=== PATIENT | male | born 1955 | race Caucasian/White ===

== ENCOUNTER 2018-01-11 02:58 | Inpatient (IN) | payer MEDICARE, OTHER ==
[~2018-01-11] VITALS: Ht 185.4 cm; Wt 164.5 kg
[2018-01-11] VITALS (8 sets, daily range): BP systolic 131–183; BP diastolic 76–116; PULSE 108–124; RESP 16–20; TEMP 97.9–99.3; O2SAT 92–95
[2018-01-11] MEDS ORDERED: SODIUM CHLOR 0.9% 1000 ML INJ 1,000 ML IV SCH (03:05)
[2018-01-11] MEDS ORDERED: ATROPINE/SCOPOLAM/HYOSCYAM/PB ELIXIR 10 ML CUP PO ONE (03:15)
[2018-01-11] MEDS ORDERED: ALUMINUM/MAGNESIUM/SIMETH 30 ML CUP PO ONE (03:15)
[2018-01-11] MEDS ORDERED: SODIUM CHLORIDE 0.9% FLUSH 10 ML FLUSH IV FLUSH PRN (03:15)
[2018-01-11] MEDS ORDERED: MORPHINE SULFATE 4 MG/ML INJ IV PUSH ONE (03:15)
[2018-01-11] MEDS ORDERED: FAMOTIDINE 20 MG/2 ML VIAL IV PUSH ONE (03:15)
--- NOTE | 2018-01-11 03:15 | PD ---
HPI Chief Complaint: Chest Pain Time Seen by Provider: 03:04 Travel History International Travel<30 days: No Contact w/Intl Traveler<30days: No Traveled to known affect area: No History of Present Illness HPI 62-year-old male complains of epigastric abdominal pain, nausea vomiting. Patient states the symptoms started about 6 hours prior to arrival. Patient states that the pain is aching pain started around the epigastric area with radiation to the left chest area. Patient states that he has shortness of breath, diaphoresis, nausea vomiting with the pain. Patient denies any fever chills cough and congestion. Patient has a history of GERD. EMS was called. Patient was given Zofran 4 mg IV, 2 nitroglycerin sublingually prior to arrival. Patient states that the pain persist despite the medication. Patient was also given aspirin 325 mg p.o. Patient denies any history of CAD. Patient denies any history of hypertension. Patient states he has history of diabetes and COPD. Patient denies any history of hyperlipidemia. Patient is non- smoker. Patient denies family history of heart disease. On a scale from 1-10 the pain is an 8. PFSH Social History Tobacco Use: No Allergies-Medications (Allergen,Severity, Reaction): Coded Allergies: No Known Allergies (Verified Allergy, Unknown, 01/11/18) Reported Meds & Prescriptions Reported Meds & Active Scripts Active Reported Daliresp (Roflumilast) 500 Mcg Tab 500 Mcg PO DAILY Omeprazole 20 Mg Tab 20 Mg PO DAILY Furosemide 20 Mg Tab 20 Mg PO DAILY Citalopram (Citalopram Hydrobromide) 40 Mg Tab 40 Mg PO DAILY Glucophage (Metformin HCl) 500 Mg Tab 500 Mg PO DAILY With a meal D3 Super Strength (Cholecalciferol) 2,000 Unit Cap 2,000 Units PO DAILY Divalproex DR (Divalproex Sodium) 500 Mg Tabdr 500 Mg PO BID B12 (Cyanocobalamin) 1,000 Mcg Tab 1 Tab PO DAILY Review of Systems General / Constitutional: No: Fever Eyes: No: Visual changes HENT: No: Headaches Cardiovascular: Positive: Chest Pain or Discomfort Respiratory: No: Shortness of Breath Gastrointestinal: Positive: Nausea, Vomiting, Abdominal Pain Genitourinary: No: Dysuria Musculoskeletal: No: Pain Skin: No Rash Neurologic: No: Weakness Psychiatric: No: Depression Endocrine: No: Polydipsia Hematologic/Lymphatic: No: Easy Bruising Physical Exam Narrative GENERAL: Well-nourished, well-developed patient. SKIN: Focused skin assessment warm/dry. HEAD: Normocephalic. EYES: No scleral icterus. No injection or drainage. NECK: Supple, trachea midline. No JVD or lymphadenopathy. CARDIOVASCULAR: Regular rate and rhythm without murmurs, gallops, or rubs. RESPIRATORY: Breath sounds equal bilaterally. No accessory muscle use. GASTROINTESTINAL: Abdomen soft, nondistended. Patient has moderate tenderness in palpation epigastric area and mild tenderness on palpation right upper quadrant of the abdomen. No rebound tenderness. No mass. MUSCULOSKELETAL: No cyanosis, or edema. BACK: Nontender without obvious deformity. No CVA tenderness. Neurologic exam normal. Data Data Last Documented VS Vital Signs Date Time Temp Pulse Resp B/P (MAP) Pulse Ox O2 Delivery O2 Flow Rate FiO2 01/11/18 05:36 18 94 Nasal Cannula 2.00 01/11/18 05:35 108 01/11/18 03:06 98.4 Orders Orders Complete Blood Count With Diff (01/11/18 03:05) Comprehensive Metabolic Panel (01/11/18 03:05) Lipase (01/11/18 03:05) Prothrombin Time / Inr (Pt) (01/11/18 03:05) Act Partial Throm Time (Ptt) (01/11/18 03:05) Urinalysis - C+S If Indicated (01/11/18 03:05) Ct Abd/Pel W Iv Contrast(Rout) (01/11/18 03:05) Iv Access Insert/Monitor (01/11/18 03:05) Ecg Monitoring (01/11/18 03:05) Oximetry (01/11/18 03:05) Morphine Inj (Morphine Inj) (01/11/18 03:15) Sodium Chlor 0.9% 1000 Ml Inj (Ns 1000 M (01/11/18 03:05) Sodium Chloride 0.9% Flush (Ns Flush) (01/11/18 03:15) Electrocardiogram (01/11/18 03:05) Famotidine Inj (Pepcid Inj) (01/11/18 03:15) Al-Mag Hy-Si 40-40-4 Mg/Ml Liq (Mag-Al P (01/11/18 03:15) Aamsw-Jcznsj-Iqzlsh-Pb Liq ( Liq (01/11/18 03:15) Creatine Kinase (Cpk) (01/11/18 03:00) Troponin I (01/11/18 03:00) Hydromorphone Pf Inj (Dilaudid Pf Inj) (01/11/18 04:15) Hydromorphone Pf Inj (Dilaudid Pf Inj) (01/11/18 04:15) Iohexol 350 Inj (Omnipaque 350 Inj) (01/11/18 04:47) Metoclopramide Inj (Reglan Inj) (01/11/18 05:30) Diphenhydramine Inj (Benadryl Inj) (01/11/18 05:30) Admit Order (Ed Use Only) (01/11/18 06:01) Labs Laboratory Tests Test 01/11/18 03:00 White Blood Count 20.0 TH/MM3 Red Blood Count 5.95 MIL/MM3 Hemoglobin 17.0 GM/DL Hematocrit 49.4 % Mean Corpuscular Volume 83.0 FL Mean Corpuscular Hemoglobin 28.6 PG Mean Corpuscular Hemoglobin Concent 34.4 % Red Cell Distribution Width 16.7 % Platelet Count 253 TH/MM3 Mean Platelet Volume 8.7 FL Neutrophils (%) (Auto) 92.5 % Lymphocytes (%) (Auto) 2.7 % Monocytes (%) (Auto) 4.6 % Eosinophils (%) (Auto) 0.0 % Basophils (%) (Auto) 0.2 % Neutrophils # (Auto) 18.5 TH/MM3 Lymphocytes # (Auto) 0.5 TH/MM3 Monocytes # (Auto) 0.9 TH/MM3 Eosinophils # (Auto) 0.0 TH/MM3 Basophils # (Auto) 0.0 TH/MM3 CBC Comment AUTO DIFF Differential Total Cells Counted 100 Neutrophils % (Manual) 77 % Band Neutrophils % 17 % Lymphocytes % 1 % Monocytes % 3 % Neutrophils # (Manual) 19.2 TH/MM3 Metamyelocytes 2 % Differential Comment FINAL DIFF MANUAL Toxic Vacuolation PRESENT Platelet Estimate NORMAL Platelet Morphology Comment NORMAL Red Cell Morphology Comment NORMAL Prothrombin Time 10.5 SEC Prothromb Time International Ratio 1.0 RATIO Activated Partial Thromboplast Time 22.5 SEC Blood Urea Nitrogen 15 MG/DL Creatinine 1.40 MG/DL Random Glucose 170 MG/DL Total Protein 7.8 GM/DL Albumin 3.9 GM/DL Calcium Level 9.2 MG/DL Alkaline Phosphatase 119 U/L Aspartate Amino Transf (AST/SGOT) 331 U/L Alanine Aminotransferase (ALT/SGPT) 238 U/L Total Bilirubin 3.5 MG/DL Sodium Level 141 MEQ/L Potassium Level 3.5 MEQ/L Chloride Level 104 MEQ/L Carbon Dioxide Level 29.6 MEQ/L Anion Gap 7 MEQ/L Total Creatine Kinase 167 U/L Troponin I LESS THAN 0.02 NG/ML Lipase 42485 U/L [facility] Medical Decision Making Medical Screen Exam Complete: Yes Emergency Medical Condition: Yes Interpretation(s) 4:49 AM. CBC WBC 20.0. 77 neutrophil. 17 bands. Creatinine 1.40. Glucose 170. Total bili 3.5. AST 331. ALT 238. Alkaline phosphatase 119. Cardiac enzymes are normal. Lipase [address]373. 5:[address] scan abdomen pelvis shows pancreatitis. Gallbladder stone. No biliary duct dilatation. Differential Diagnosis Differential diagnosis including gastritis, PUD, pancreatitis, cholecystitis, colitis, angina, [place], PE, pneumothorax. Narrative Course 62-year-old male with epigastric abdominal pain with pain radiation the left chest. Patient has diaphoresis, nausea vomiting with the pain. Normal saline solution 1 25 cc an hour. Pepcid 20 mg IV. Maalox 30 cc p.o. 10 cc p.o. given. Diagnosis Primary Impression: Acute pancreatitis Qualified Codes: K85.90 - Acute pancreatitis without necrosis or infection, unspecified Additional Impression: Cholelithiasis Qualified Codes: K80.20 - Calculus of gallbladder without cholecystitis without obstruction Aureliano Monahan MD Jan 11, 2018 03:15
[2018-01-11] MEDS ORDERED: METF500 PO (03:19)
[2018-01-11] MEDS ORDERED: CYAN1TAB24 PO (03:19)
[2018-01-11] MEDS ORDERED: DIVA500T PO (03:19)
[2018-01-11] MEDS ORDERED: ROFL1TAB2 PO (03:19)
[2018-01-11] MEDS ORDERED: D200CAP PO (03:19)
[2018-01-11] MEDS ORDERED: FURO20TA PO (03:19)
[2018-01-11] MEDS ORDERED: OMEP20TA93 PO (03:19)
[2018-01-11] MEDS ORDERED: CITA40TA4 PO (03:19)
[2018-01-11 03:28] LABS: AUTOMATED NEUTROPHIL # 18.5 TH/MM3 (1.8-7.7); BASOPHIL % 0.2 % (0.0-2.0); HEMATOCRIT 49.4 % (39.0-51.0); LYMPH % 2.7 % (9.0-44.0); LYMPHOCYTE # 0.5 TH/MM3 (1.0-4.8); MEAN CORPUSCULAR HEMOGLOBIN 28.6 PG (27.0-34.0); MEAN CORPUSCULAR HGB CONC 34.4 % (32.0-36.0); MEAN PLATELET VOLUME 8.7 FL (7.0-11.0); MONO % 4.6 % (0.0-8.0); MONOCYTE # 0.9 TH/MM3 (0-0.9); NEUT % 92.5 % (16.0-70.0); PLATELET COUNT 253 TH/MM3 (150-450); RED BLOOD COUNT 5.95 MIL/MM3 (4.50-5.90); RED CELL DISTRIBUTION WIDTH 16.7 % (11.6-17.2)
[2018-01-11 03:38] LABS: PROTHROMBIN TIME - PATIENT 10.5 SEC (9.8-11.6)
[2018-01-11 03:41] LABS: ALBUMIN 3.9 GM/DL (3.4-5.0); ALT (GPT) 238 U/L (12-78); AST (GOT) 331 U/L (15-37); BICARBONATE 29.6 MEQ/L (21.0-32.0); BLOOD UREA NITROGEN 15 MG/DL (7-18); CALCIUM 9.2 MG/DL (8.5-10.1); CHLORIDE 104 MEQ/L (98-107); GLUCOSE,RANDOM 170 MG/DL (74-106); SODIUM (NA) 141 MEQ/L (136-145)
[2018-01-11 03:45] LABS: ALKALINE PHOSPHATASE 119 U/L (45-117); TOTAL BILIRUBIN ADULT 3.5 MG/DL (0.2-1.0); TOTAL PROTEIN 7.8 GM/DL (6.4-8.2); TROPONIN I LESS THAN 0.02 NG/ML (0.02-0.05)
[2018-01-11 03:59] LABS: BANDS 17 % (0-6); LYMPHOCYTES 1 % (9-44); METAMYELOCYTES 2 % (0-1); MONOCYTES 3 % (0-8); NEUTROPHIL # MANUAL DIFF 19.2 TH/MM3 (1.8-7.7); POLYS (SEG NEUTROPHILS) 77 % (16-70); TOXIC VACUOLATION PRESENT (NONE SEEN)
[2018-01-11] MEDS ORDERED: HYDROmorphone HCL PF 2 MG/ML VIAL IV PUSH ONE (04:15)
[2018-01-11] MEDS ORDERED: HYDROmorphone HCL PF 1 MG/ML VIAL IV PUSH ONE (04:15)
[2018-01-11] MEDS ORDERED: IOHEXOL 350 MG/ML 10 ML VIAL (for RAD DIAG) IVCONTRAST ONE (04:47)
[2018-01-11] MEDS ORDERED: METOCLOPRAMIDE HCL 10 MG/2 ML VIAL IV PUSH ONE (05:30)
[2018-01-11] MEDS ORDERED: diphenhydrAMINE HCL 50 MG/ML VIAL IV PUSH ONE (05:30)
--- NOTE | 2018-01-11 05:35 | RADRPT ---
EXAM DATE/TIME: 01/11/2018 04:57 [facility] COMPARISON: No previous studies available for comparison. INDICATIONS : Epigastric pain. IV CONTRAST: 96 cc Omnipaque 350 (iohexol) IV ORAL CONTRAST: No oral contrast ingested. RADIATION DOSE: 30.34 CTDIvol (mGy) ; Patient body habitus MEDICAL HISTORY : Chronic obstructive pulmonary disease. Gastroesophageal reflux disease. Diabetes mellitus type 2. SURGICAL HISTORY : None. ENCOUNTER: Initial ACUITY: 1 day PAIN SCALE: 6/10 LOCATION: abdomen TECHNIQUE: Volumetric scanning of the abdomen and pelvis was performed. Using automated exposure control and ad justment of the mA and/or kV according to patient size, radiation dose was kept as low as reasonably achievable to obtain optimal diagnostic quality images. DICOM format image data is available electro nically for review and comparison. FINDINGS: LOWER LUNGS: The visualized lower lungs are clear. LIVER: There is a 2 cm cyst in the right liver. No concerning liver lesion is identified. There is no dilat ion of the biliary tree. There are small stones in the gallbladder. No gallbladder wall thickening is present. No calcified stones are seen within the common bile duct. SPLEEN: Normal size without lesion. PANCREAS: The pancreas is enlarged and demonstrates peripancreatic inflammation. There is no pancreatic necrosi s or pseudocyst formation. Main pancreatic duct is normal in size. KIDNEYS: There are bilateral renal lesions which are hyperdense and could represent complex cysts or solid les ions. These include a 2.2 cm lesion at the right upper pole, a 1.7 cm lesion at the left upper pole, a 2.5 cm lesion exophytically arising from the lower pole, and another 1.8 cm low-density lesion at t he lower pole of the left kidney. There is no hydronephrosis. 2 nonobstructing stones are present in the right lower pole renal collecting system measuring 2 mm and 3 mm. A 2 mm nonobstructing stone is present in the left lower pole collecting system. ADRENAL GLANDS: Within normal limits. VASCULAR: There is no aortic aneurysm. There is moderate atherosclerotic disease. BOWEL/MESENTERY: Stomach and small bowel demonstrate no acute finding. There is sigmoid diverticulosis. There is a sma ll volume of free fluid in the abdomen and pelvis. No free air is present. ABDOMINAL WALL: Within normal limits. RETROPERITONEUM: There is no lymphadenopathy. BLADDER: No wall thickening or mass. REPRODUCTIVE: Within normal limits. INGUINAL: There is no lymphadenopathy or hernia. 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 There are degenerative changes of the lumbar spine. CONCLUSION: 1. Abnormal pancreas diagnostic of acute pancreatitis. There is peripancreatic inflammation and a sma ll volume of free fluid in the abdomen and pelvis. No pancreatic necrosis or pancreatitis associated complications are currently present. 2. Small stones are present within the gallbladder. There is no bile duct dilatation. 3. There are multiple bilateral renal lesions which are incompletely characterized on this study and could represent solid renal lesions or complex cysts. These should be further evaluation once the pat ient's condition permits. These ideally should be further evaluated with renal protocol MRI with and without intravenous contrast. 4. Nonacute findings include nonobstructing bilateral renal stones and moderate atherosclerotic disea se. Mono Wesley MD on January 11, 2018 at 5:25 Board Certified Radiologist. This report was verified electronically.
[2018-01-11] MEDS ORDERED: SENNOSIDES 8.6 MG TAB PO PRN (06:00)
[2018-01-11] MEDS ORDERED: HYDROmorphone HCL PF 1 MG/ML VIAL IV PUSH PRN (06:00)
[2018-01-11] MEDS ORDERED: BISACODYL 10 MG SUPP RECTAL PRN (06:00)
[2018-01-11] MEDS ORDERED: LACTULOSE SYRUP 20 GM/30 ML CUP PO PRN (06:00)
[2018-01-11] MEDS ORDERED: MAGNESIUM HYDROXIDE SUSP 30 ML CUP PO PRN (06:00)
[2018-01-11] MEDS: PIPERACIL-TAZO 4.5 GM PREMIX 100 ML IV SCH ×3 (06:42→21:55)
[2018-01-11] MEDS: SODIUM CHLOR 0.9% 1000 ML INJ 1,000 ML IV SCH ×2 (06:42→21:18)
--- NOTE | 2018-01-11 08:59 | PD.CONS ---
HPI History of Present Illness This is a 62 year old This is a 62 y o male with hx DM and COPD who presented to ER with epigastric pain, n/v that started last night. The pain is constant. No blood in emesis. Has noticed mildly looser stools. Never had this kind of pain before. Denies prior episode pancreatitis, problems with gallbladder. he tells me he has a spot on his liver and "nobody knows what it is" but otherwise no problems with liver. occasional ETOh consumption; denies heavy ETOH. Admits acid reflux. his last colonoscopy was 4 y ago in [place], no abnormal findings. Never had EGD. (Adriane Bernabe) PFSH Past Medical History neuropathy COPD DM Past Surgical History left ankle surgery (Adriane Bernabe) Coded Allergies: No Known Allergies (Verified Allergy, Unknown, 01/11/18) Family History heart problems - father Social History occasional ETOH quit smoking 8 y ago no illicit drugs (Adriane Bernabe) Review of Systems Constitutional: COMPLAINS OF: Fever, Night Sweats Endocrine: DENIES: Polydipsia Eyes: DENIES: Blurred vision Ears, nose, mouth, throat: DENIES: Hearing loss Respiratory: DENIES: Cough Cardiovascular: DENIES: Chest pain Gastrointestinal: COMPLAINS OF: Abdominal pain, Nausea, Vomiting, DENIES: Black stools, Bloody stools, Hematemesis Genitourinary: DENIES: Hematuria Musculoskeletal: DENIES: Joint Swelling Integumentary: DENIES: Abnormal pigmentation Hematologic/lymphatic: DENIES: Bruising Immunologic/allergic: DENIES: Eczema Neurologic: DENIES: Headache Psychiatric: DENIES: Confusion (Adriane Bernabe) GI Exam Vitals I&O Vital Signs Date Time Temp Pulse Resp B/P (MAP) Pulse Ox O2 Delivery O2 Flow Rate FiO2 01/11/18 05:36 18 94 Nasal Cannula 2.00 01/11/18 05:35 108 18 137/84 (101) 94 Nasal Cannula 2.00 01/11/18 05:00 17 01/11/18 04:00 18 01/11/18 03:14 110 18 95 Nasal Cannula 4.00 01/11/18 03:06 98.4 114 18 133/76 (95) 95 Imaging Last Impressions Abdomen/Pelvis CT 01/11/18 0305 Signed Impressions: Service Date/Time: Thursday, January 11, 2018 04:57 - CONCLUSION: 1. Abnormal pancreas diagnostic of acute pancreatitis. There is peripancreatic inflammation and a small volume of free fluid in the abdomen and pelvis. No pancreatic necrosis or pancreatitis associated complications are currently present. 2. Small stones are present within the gallbladder. There is no bile duct dilatation. 3. There are multiple bilateral renal lesions which are incompletely characterized on this study and could represent solid renal lesions or complex cysts. These should be further evaluation once the patient's condition permits. These ideally should be further evaluated with renal protocol MRI with and without intravenous contrast. 4. Nonacute findings include nonobstructing bilateral renal stones and moderate atherosclerotic disease. Mono Wesley MD Laboratory Test 01/11/18 03:00 White Blood Count 20.0 TH/MM3 Red Blood Count 5.95 MIL/MM3 Hemoglobin 17.0 GM/DL Hematocrit 49.4 % Mean Corpuscular Volume 83.0 FL Mean Corpuscular Hemoglobin 28.6 PG Mean Corpuscular Hemoglobin Concent 34.4 % Red Cell Distribution Width 16.7 % Platelet Count 253 TH/MM3 Mean Platelet Volume 8.7 FL Neutrophils (%) (Auto) 92.5 % Lymphocytes (%) (Auto) 2.7 % Monocytes (%) (Auto) 4.6 % Eosinophils (%) (Auto) 0.0 % Basophils (%) (Auto) 0.2 % Neutrophils # (Auto) 18.5 TH/MM3 Lymphocytes # (Auto) 0.5 TH/MM3 Monocytes # (Auto) 0.9 TH/MM3 Eosinophils # (Auto) 0.0 TH/MM3 Basophils # (Auto) 0.0 TH/MM3 CBC Comment AUTO DIFF Differential Total Cells Counted 100 Neutrophils % (Manual) 77 % Band Neutrophils % 17 % Lymphocytes % 1 % Monocytes % 3 % Neutrophils # (Manual) 19.2 TH/MM3 Metamyelocytes 2 % Differential Comment FINAL DIFF MANUAL Toxic Vacuolation PRESENT Platelet Estimate NORMAL Platelet Morphology Comment NORMAL Red Cell Morphology Comment NORMAL Prothrombin Time 10.5 SEC Prothromb Time International Ratio 1.0 RATIO Activated Partial Thromboplast Time 22.5 SEC Blood Urea Nitrogen 15 MG/DL Creatinine 1.40 MG/DL Random Glucose 170 MG/DL Total Protein 7.8 GM/DL Albumin 3.9 GM/DL Calcium Level 9.2 MG/DL Alkaline Phosphatase 119 U/L Aspartate Amino Transf (AST/SGOT) 331 U/L Alanine Aminotransferase (ALT/SGPT) 238 U/L Total Bilirubin 3.5 MG/DL Sodium Level 141 MEQ/L Potassium Level 3.5 MEQ/L Chloride Level 104 MEQ/L Carbon Dioxide Level 29.6 MEQ/L Anion Gap 7 MEQ/L Total Creatine Kinase 167 U/L Troponin I LESS THAN 0.02 NG/ML Lipase 35670 U/L Physical Examination HEENT: PERRL; normocephalic; atraumatic; no jaundice. CHEST: diminished, shallow CARDIAC: tachy ABDOMEN: Soft, obese, epigastric TTP; bowel sounds are present in all four quadrants. EXTREMITIES: No clubbing, cyanosis, or edema.BLE cool to touch SKIN: red scaly lesion sternum; red macular lesions abdomen; no jaundice. CLINICAL EVALUATOR: No focal deficits; alert and oriented times three. (Adriane Bernabe) Assessment and Plan Plan ASSESSMENT - epigastric pain, n/v, elevated LFTs- pancreatitis, could have had gallstone that passed. lipase > 20,000. LFTs are elevated in obstructive pattern but CT showed no ductal dilatation. - leukocytosis - WBC 20k 2/2 above PLAN - continue zosyn - hepatitis panel - npo except ice chips - monitor LFTs - if LFTs do not trend down will get MRCP - pain mgmt - IVF - supportive care pt see by myself and Dr Mc and this note is written on his behalf (Adriane Bernabe) Physician Comments Agree with above assessment and plan, will plan for MRCP in am and if positive to proceed with ERC. Will follow up with you. Thank you for the consult. (Ja Mc MD) Adriane Bernabe Jan 11, 2018 08:59 Ja Mc MD Jan 11, 2018 15:13
--- NOTE | 2018-01-11 09:10 | HHI.HP ---
HPI Service [facility] Hospitalists Primary Care Physician Non-Staff Admission Diagnosis Acute pancreatitis. Cholelithiasis. Diagnoses: Chief Complaint: Epigastric pain Travel History International Travel<30 Days: No Contact w/Intl Traveler <30 Da: No Traveled to Known Affected Are: No History of Present Illness This is a 62-year-old male with past medical history of type 2 diabetes, history of kidney stones, COPD who presents to [facility] complaining of sudden onset of epigastric pain was started this morning at 6 AM. The patient states that pain is epigastric was 89/10 in intensity associated with nausea and multiple episodes of vomiting. The patient states he had chills and fevers. Pain is nonradiating. Patient denies any aggravating factors, states that pain is only relieved with pain medications that were given here in the emergency department. The patient had been seen in the emergency department and evaluated. As part of evaluation CT abdomen and pelvis was obtained and showed signs consistent with acute pancreatitis. There is no pancreatic necrosis or bile duct dilatation. The patient currently complains of epigastric pain which is nonradiating 6/10 intensity associated with nausea. Otherwise the patient states has minimal cough, denies dysuria, diarrhea, denies shortness of breath or chest pain. Review of Systems As per HPI, other systems reviewed by me and negative. Past Family Social History Past Medical History neuropathy COPD DM Past Surgical History left ankle surgery Reported Medications Reported Meds & Active Scripts Active Reported Daliresp (Roflumilast) 500 Mcg Tab 500 Mcg PO DAILY Omeprazole 20 Mg Tab 20 Mg PO DAILY Furosemide 20 Mg Tab 20 Mg PO DAILY Citalopram (Citalopram Hydrobromide) 40 Mg Tab 40 Mg PO DAILY Glucophage (Metformin HCl) 500 Mg Tab 500 Mg PO DAILY With a meal D3 Super Strength (Cholecalciferol) 2,000 Unit Cap 2,000 Units PO DAILY Divalproex DR (Divalproex Sodium) 500 Mg Tabdr 500 Mg PO BID B12 (Cyanocobalamin) 1,000 Mcg Tab 1 Tab PO DAILY Allergies: Coded Allergies: No Known Allergies (Verified Allergy, Unknown, 01/11/18) Active Ordered Medications Current Medications Medications (Trade) Dose Ordered Sig/Kumar Route Start Time Stop Time Status Last Admin Piperacillin Sod/ Tazobactam Sod 100 ml @ 200 mls/hr Q6H IV 01/11/18 06:00 01/11/18 06:42 Sodium Chloride 1,000 ml @ 100 mls/hr Q10H IV 01/11/18 05:48 01/11/18 06:42 (NS Flush) 2 ml UNSCH PRN IV FLUSH 01/11/18 06:00 (NS Flush) 2 ml BID IV FLUSH 01/11/18 09:00 (Zofran Inj) 4 mg Q6H PRN IVP 01/11/18 06:00 (Dilaudid Pf Inj) 1 mg Q3H PRN IV PUSH 01/11/18 06:00 (Roxicodone) 5 mg Q4H PRN PO 01/11/18 06:00 (Sondra-Colace) 1 tab BID PO 01/11/18 09:00 (Milk Of Magnesia Liq) 30 ml Q12H PRN PO 01/11/18 06:00 (Senokot) 17.2 mg Q12H PRN PO 01/11/18 06:00 (Dulcolax Supp) 10 mg DAILY PRN RECTAL 01/11/18 06:00 (Lactulose Liq) 30 ml DAILY PRN PO 01/11/18 06:00 (Pepcid Inj) 20 mg Q12H IV PUSH 01/11/18 09:00 Family History heart problems - father Social History occasional ETOH quit smoking 8 y ago no illicit drugs Physical Exam Vital Signs Vital Signs Date Time Temp Pulse Resp B/P (MAP) Pulse Ox O2 Delivery O2 Flow Rate FiO2 01/11/18 05:36 18 94 Nasal Cannula 2.00 01/11/18 05:35 108 18 137/84 (101) 94 Nasal Cannula 2.00 01/11/18 05:00 17 01/11/18 04:00 18 01/11/18 03:14 110 18 95 Nasal Cannula 4.00 01/11/18 03:06 98.4 114 18 133/76 (95) 95 Physical Exam GENERAL: This is a well-nourished, well-developed patient, moderate distress due to pain. Nose respiratory distress observed. SKIN: No rashes, ecchymoses or lesions. Cool and dry. HEAD: Atraumatic. Normocephalic. No temporal or scalp tenderness. EYES: Pupils equal round and reactive. Extraocular motions intact. No scleral icterus. No injection or drainage. ENT: Nose without bleeding, purulent drainage or septal hematoma. Throat without erythema, tonsillar hypertrophy or exudate. Uvula midline. Airway patent. NECK: Trachea midline. No JVD or lymphadenopathy. Supple, nontender, no meningeal signs. CARDIOVASCULAR: Regular rate and rhythm without murmurs, gallops, or rubs. RESPIRATORY: Decreased breath sounds bilaterally however clear to auscultation. Breath sounds equal bilaterally. No wheezes, rales, or rhonchi. GASTROINTESTINAL: Abdomen soft, non-tender, nondistended. No hepato-splenomegaly , or palpable masses. No guarding. Obese MUSCULOSKELETAL: Extremities without clubbing, cyanosis, or edema. No joint tenderness, effusion, or edema noted. No calf tenderness. Negative Homans sign bilaterally. NEUROLOGICAL: Awake and alert. Cranial nerves II through XII intact. Motor and sensory grossly within normal limits. Five out of 5 muscle strength in all muscle groups. Normal speech. Laboratory Laboratory Tests Test 01/11/18 03:00 White Blood Count 20.0 Red Blood Count 5.95 Hemoglobin 17.0 Hematocrit 49.4 Mean Corpuscular Volume 83.0 Mean Corpuscular Hemoglobin 28.6 Mean Corpuscular Hemoglobin Concent 34.4 Red Cell Distribution Width 16.7 Platelet Count 253 Mean Platelet Volume 8.7 Neutrophils (%) (Auto) 92.5 Lymphocytes (%) (Auto) 2.7 Monocytes (%) (Auto) 4.6 Eosinophils (%) (Auto) 0.0 Basophils (%) (Auto) 0.2 Neutrophils # (Auto) 18.5 Lymphocytes # (Auto) 0.5 Monocytes # (Auto) 0.9 Eosinophils # (Auto) 0.0 Basophils # (Auto) 0.0 CBC Comment AUTO DIFF Differential Total Cells Counted 100 Neutrophils % (Manual) 77 Band Neutrophils % 17 Lymphocytes % 1 Monocytes % 3 Neutrophils # (Manual) 19.2 Metamyelocytes 2 Differential Comment FINAL DIFF MANUAL Toxic Vacuolation PRESENT Platelet Estimate NORMAL Platelet Morphology Comment NORMAL Red Cell Morphology Comment NORMAL Prothrombin Time 10.5 Prothromb Time International Ratio 1.0 Activated Partial Thromboplast Time 22.5 Blood Urea Nitrogen 15 Creatinine 1.40 Random Glucose 170 Total Protein 7.8 Albumin 3.9 Calcium Level 9.2 Alkaline Phosphatase 119 Aspartate Amino Transf (AST/SGOT) 331 Alanine Aminotransferase (ALT/SGPT) 238 Total Bilirubin 3.5 Sodium Level 141 Potassium Level 3.5 Chloride Level 104 Carbon Dioxide Level 29.6 Anion Gap 7 Total Creatine Kinase 167 Troponin I LESS THAN 0.02 Lipase 16326 Result Diagram: 01/11/1829901/11/18299 Imaging Last Impressions Abdomen/Pelvis CT 01/11/18304 Signed Impressions: Service Date/Time: Thursday, January 11, 2018 04:57 - CONCLUSION: 1. Abnormal pancreas diagnostic of acute pancreatitis. There is peripancreatic inflammation and a small volume of free fluid in the abdomen and pelvis. No pancreatic necrosis or pancreatitis associated complications are currently present. 2. Small stones are present within the gallbladder. There is no bile duct dilatation. 3. There are multiple bilateral renal lesions which are incompletely characterized on this study and could represent solid renal lesions or complex cysts. These should be further evaluation once the patient's condition permits. These ideally should be further evaluated with renal protocol MRI with and without intravenous contrast. 4. Nonacute findings include nonobstructing bilateral renal stones and moderate atherosclerotic disease. Mono Wesley MD Reviewed by me. Caprini VTE Risk Assessment Caprini VTE Risk Assessment: Mod/High Risk (score >= 2) Caprini Risk Assessment Model Point Value = 1 Point Value = 2 Point Value = 3 Point Value = 5 Age 41-60 Minor surgery BMI > 25 kg/m2 Swollen legs Varicose veins or History of unexplained or recurrent spontaneous Oral contraceptives or hormone replacement Sepsis (< 1 month) Serious lung disease, including pneumonia (< 1 month) Abnormal pulmonary function Acute myocardial infarction Congestive heart failure (< 1 month) History of inflammatory bowel disease Medical patient at bed rest Age 61-74 Arthroscopic surgery Major open surgery (> 45 min) Laparoscopic surgery (> 45 min) Malignancy Confined to bed (> 72 hours) Immobilizing plaster cast Central venous access Age >= 75 History of VTE Family history of VTE Factor V Leiden Prothrombin [id number] Lupus anticoagulant Anticardiolipin antibodies Elevated serum homocysteine Heparin-induced thrombocytopenia Other congenital or acquired thrombophilia Stroke (< 1 month) Elective arthroplasty Hip, pelvis, or leg fracture Acute spinal cord injury (< 1 month) Prophylaxis Regimen Total Risk Factor Score Risk Level Prophylaxis Regimen 0-1 Low Early ambulation 2 Moderate Order ONE of the following: *Sequential Compression Device (SCD) *Heparin 5000 units SQ BID 3-4 Higher Order ONE of the following medications: *Heparin 5000 units SQ TID *Enoxaparin/Lovenox 40 mg SQ daily (WT < 150 kg, CrCl > 30 mL/min) *Enoxaparin/Lovenox 30 mg SQ daily (WT < 150 kg, CrCl > 10-29 mL/min) *Enoxaparin/Lovenox 30 mg SQ BID (WT < 150 kg, CrCl > 30 mL/min) AND/OR *Sequential Compression Device (SCD) 5 or more Highest Order ONE of the following medications: *Heparin 5000 units SQ TID (Preferred with Epidurals) *Enoxaparin/Lovenox 40 mg SQ daily (WT < 150 kg, CrCl > 30 mL/min) *Enoxaparin/Lovenox 30 mg SQ daily (WT < 150 kg, CrCl > 10-29 mL/min) *Enoxaparin/Lovenox 30 mg SQ BID (WT < 150 kg, CrCl > 30 mL/min) AND *Sequential Compression Device (SCD) Assessment and Plan Problem List: (1) Acute pancreatitis ICD Code: K85.90 - Acute pancreatitis without necrosis or infection, unspecified Status: Acute Plan: Despite gallstone pancreatitis since there is cholelithiasis, transaminitis and elevated alk phos. Likely a passed a stone. CT abdomen and pelvis reviewed by me showed changes consistent with acute pancreatitis with peripancreatic inflammation and small volume of free fluid in the abdomen and pelvis. There is no pancreatic necrosis of pancreatic associated complications currently present. Admit the patient to the medical floor Aggressive IV fluid resuscitation. Pain control with IV morphine and IV Dilaudid for breakthrough pain. GI consulted, appreciate recommendations. Consult general surgery as likely the gallbladder should be removed on this admission. (2) Cholelithiasis ICD Code: K80.20 - Calculus of gallbladder without cholecystitis without obstruction Status: Acute Plan: Small stones present within the gallbladder on CT abdomen and pelvis however there is no bile duct dilatation. I will order a liver ultrasound to better assess for bile duct dilatation. (3) SIRS (systemic inflammatory response syndrome) ICD Code: R65.10 - Systemic inflammatory response syndrome (SIRS) of non- infectious origin without acute organ dysfunction Plan: Present on admission. Patient is afebrile however tachycardic and with leukocytosis of 20 K with 70% bands We will order chest x-ray and UA to rule out infection. No signs of necrosis on CT abdomen and pelvis. IV fluids IV Zosyn Check lactic acid as per sepsis protocol (4) Leukocytosis ICD Code: D72.829 - Elevated white blood cell count, unspecified Plan: WBC 20 K with 17% bands. Monitor CBC with differential Likely leukocytosis secondary to acute pancreatitis. (5) HAMMAD (acute kidney injury) ICD Code: N17.9 - Acute kidney failure, unspecified Plan: Likely secondary to dehydration. CT abdomen and pelvis did not show any obstruction. Aggressive IV fluid resuscitation. Monitor BUN and creatinine, strict I's and O's, avoid nephrotoxins. (6) Transaminitis ICD Code: R74.0 - Nonspecific elevation of levels of transaminase and lactic acid dehydrogenase [LDH] Plan: Likely secondary to gallstone pancreatitis with passed stone. Monitor LFTs Check hepatitis profile. GI consulted. Follow-up recommendations.? MRCP (7) Kidney lesion, cachil dehe, bilateral ICD Code: N28.9 - Disorder of kidney and ureter, unspecified Plan: CT abdomen and pelvis shows multiple bilateral renal lesions versus complex cysts. An MRI with and without IV contrast should be obtained once the patient is more stable. (8) Nausea & vomiting ICD Code: R11.2 - Nausea with vomiting, unspecified Plan: Likely due to acute pancreatitis. We will place on IV Zofran. Assessment and Plan GI prophylaxis. PPI. DVT prophylaxis: We will place on Lovenox subcutaneously, SCDs. Code Status Full code. Discussed Condition With ED physician, patient. Physician Certification 2 Midnight Certification Type: Admission for Inpatient Services Order for Inpatient Services The services are ordered in accordance with Medicare regulations or non- Medicare payer requirements, as applicable. In the case of services not specified as inpatient-only, they are appropriately provided as inpatient services in accordance with the 2-midnight benchmark. Estimated LOS (days): 2 days is the estimated time the patient will need to remain in the hospital, assuming treatment plan goals are met and no additional complications. Post-Hospital Plan: Not yet determined Problem Qualifiers (1) Acute pancreatitis: Qualified Codes: K85.90 - Acute pancreatitis without necrosis or infection, unspecified (2) Cholelithiasis: Qualified Codes: K80.20 - Calculus of gallbladder without cholecystitis without obstruction (3) Leukocytosis: Qualified Codes: D72.825 - Bandemia (4) Nausea & vomiting: Melvin Mcneal MD Jan 11, 2018 09:10
[2018-01-11] MEDS: SODIUM CHLORIDE 0.9% FLUSH 10 ML FLUSH IV FLUSH SCH ×2 (09:28→20:39)
[2018-01-11] MEDS: FAMOTIDINE 20 MG/2 ML VIAL IV PUSH SCH ×2 (09:39→20:39)
[2018-01-11] MEDS: DOCUSATE SODIUM 50 MG/SENNA 8.6 MG TAB PO SCH ×2 (09:39→20:39)
--- NOTE | 2018-01-11 09:55 | RADRPT ---
EXAM DATE/TIME: 01/11/2018 09:33 [place] COMPARISON: No previous studies available for comparison. INDICATIONS : Vomiting and upper belly pain. MEDICAL HISTORY : Chronic obstructive pulmonary disease. Gastroesophageal reflux disease. Diabetes mellitus SURGICAL HISTORY : port placement ENCOUNTER: Initial ACUITY: 1 day PAIN SCORE: 10/10 LOCATION: Bilateral chest FINDINGS: A single view of the chest demonstrates the lungs to be symmetrically aerated without evidence of mas s, infiltrate or effusion. The cardiomediastinal contours are unremarkable. Osseous structures are intact. Left-sided Port-A-Cath. CONCLUSION: No acute cardiopulmonary disease. Fabián Flores Jr., MD on January 11, 2018 at 9:52 Board Certified Radiologist. This report was verified electronically.
[2018-01-11] MEDS ORDERED: HYDROmorphone HCL PF 2 MG/ML VIAL IV PRN (11:15)
[2018-01-11] MEDS ORDERED: cloNIDine HCL 0.1 MG TAB PO PRN (12:45)
[2018-01-11 13:27] LABS: LACTIC ACID SEPSIS PROTOCOL 3.5 mmol/L (0.4-2.0)
--- NOTE | 2018-01-11 13:39 | EKG ---
Date Performed: 01/11/2018 Time Performed: 02:58:22 PTAGE: 62 years EKG: SINUS TACHYCARDIA ABNORMAL RHYTHM ECG INTERPRETATION BASED ON A DEFAULT AGE OF 40 YEARS NO PREVIOUS TRACING DOCTOR: Ryan Mckeon Interpretating Date/Time 01/11/2018 13:35:43
[2018-01-11] MEDS: ENOXAPARIN SODIUM 40 MG/0.4 ML SYRINGE SQ SCH (13:51)
[2018-01-11] MEDS: PANTOPRAZOLE SOD 20 MG DELAYED RELEASE TAB PO SCH (14:00)
[2018-01-11] MEDS: MORPHINE SULFATE 2 MG/ML INJ IV PUSH PRN (14:20)
--- NOTE | 2018-01-11 15:01 | PD.CONS ---
cc: Ernesto Tinajero MD [facility] Service General Surgery Consult Requested By Dr. Gavin Reason for Consult Evaluate for gallstone pancreatitis Primary Care Physician Non-Staff History of Present Illness This is a 62 year old male with a past medical history of type 2 diabetes mellitus, COPD. oxygen dependent, kidney stones and neuropathy. The patient developed sudden onset of abdominal pain yesterday after eating dinner (chicken , potatoes and vegetables). The patient rated the pain a 10/10. He does report nausea and several episodes of emesis at home. He does report fever and chills. He denies any known sick contacts. He denies any recent travel. He denies any use of oral anticoagulation. A CT abd/pelvis was obtained which showed acute pancreatitis and small gallstones in the gallbladder. He has an elevated white blood cell count of 20.0. His liver enzymes are elevated; total bilirubin is 2.5; AST is 331; ALT is 238; lipase is 20,782. A General Surgery consultation has been requested. Review of Systems Constitutional: COMPLAINS OF: Fatigue, Fever, Chills, DENIES: Change in appetite Endocrine: DENIES: Polydipsia, Polyuria, Polyphagia Eyes: DENIES: Diplopia, Eye inflammation Ears, nose, mouth, throat: DENIES: Hearing loss Respiratory: DENIES: Apneas Cardiovascular: DENIES: Chest pain Gastrointestinal: COMPLAINS OF: Abdominal pain, Nausea, Vomiting Genitourinary: DENIES: Urgency Musculoskeletal: DENIES: Joint pain Integumentary: DENIES: Abnormal pigmentation Hematologic/lymphatic: DENIES: Bruising Immunologic/allergic: DENIES: Eczema Neurologic: DENIES: Abnormal gait, Headache Psychiatric: DENIES: Confusion, Mood changes Past Family Social History Past Medical History Type 2 diabetes mellitus Kidney stones COPD----oxygen dependent on 2 L continuous Neuropathy Past Surgical History Lithotripsy Ankle surgery Reported Medications Divalproex Citalopram Furosemide Daliresp Omeprazole Metformin B12 Vitamin D Allergies: Coded Allergies: No Known Allergies (Verified Allergy, Unknown, 01/11/18) Active Ordered Medications Current Medications Medications (Trade) Dose Ordered Sig/Kumar Route Start Time Stop Time Status Last Admin Piperacillin Sod/ Tazobactam Sod 100 ml @ 200 mls/hr Q6H IV 01/11/18 06:00 01/11/18 13:51 Sodium Chloride 1,000 ml @ 150 mls/hr Q6H40M IV 01/11/18 05:48 01/11/18 06:42 (NS Flush) 2 ml UNSCH PRN IV FLUSH 01/11/18 06:00 (NS Flush) 2 ml BID IV FLUSH 01/11/18 09:00 01/11/18 09:28 (Zofran Inj) 4 mg Q6H PRN IVP 01/11/18 06:00 (Sondra-Colace) 1 tab BID PO 01/11/18 09:00 01/11/18 09:39 (Milk Of Magnesia Liq) 30 ml Q12H PRN PO 01/11/18 06:00 (Senokot) 17.2 mg Q12H PRN PO 01/11/18 06:00 (Dulcolax Supp) 10 mg DAILY PRN RECTAL 01/11/18 06:00 (Lactulose Liq) 30 ml DAILY PRN PO 01/11/18 06:00 (Pepcid Inj) 20 mg Q12H IV PUSH 01/11/18 09:00 01/11/18 09:39 (Morphine Inj) 2 mg Q3H PRN IV PUSH 01/11/18 10:45 01/11/18 14:20 (Morphine Inj) 4 mg Q3H PRN IV PUSH 01/11/18 10:45 (Dilaudid Pf Inj) 1 mg Q4H PRN IV PUSH 01/11/18 12:00 (Lovenox Inj) 40 mg Q24H SQ 01/11/18 12:00 01/11/18 13:51 (CeleXA) 40 mg DAILY PO 01/12/18 09:00 (Depakote Dr) 500 mg BID PO 01/11/18 21:00 (Daliresp) 500 mcg DAILY PO 01/12/18 09:00 (Protonix) 20 mg DAILY PO 01/11/18 14:00 (Catapres) 0.1 mg Q6H PRN PO 01/11/18 12:45 Family History Noncontributory Social History Denies tobacco use Positive EtOH use--- socially; not daily Denies illicit drug use Originally from [place]. Lives with her months in [place] and an RV. Lives with . Physical Exam Vital Signs Vital Signs Date Time Temp Pulse Resp B/P (MAP) Pulse Ox O2 Delivery O2 Flow Rate FiO2 01/11/18 13:26 109 18 166/91 (116) 93 Room Air 01/11/18 11:15 111 18 183/116 (138) 95 Room Air 01/11/18 11:13 109 18 94 Room Air 01/11/18 05:36 18 94 Nasal Cannula 2.00 01/11/18 05:35 108 18 137/84 (101) 94 Nasal Cannula 2.00 01/11/18 05:00 17 01/11/18 04:00 18 01/11/18 03:14 110 18 95 Nasal Cannula 4.00 01/11/18 03:06 98.4 114 18 133/76 (95) 95 Physical Exam GENERAL: Very pleasant 62 year old male resting in bed in no acute distress. SKIN: Warm and dry. HEAD: Atraumatic. Normocephalic. EYES: Pupils equal and round. No scleral icterus. No injection or drainage. ENT: No nasal bleeding or discharge. Mucous membranes pink and moist. NECK: Trachea midline. CARDIOVASCULAR: Regular rate and rhythm. RESPIRATORY: No accessory muscle use. Clear to auscultation. Breath sounds equal bilaterally. GASTROINTESTINAL: Abdomen distended; obese abdomen; RUQ and LUQ tenderness with palpation. No visible scars or hernias. Small abrasion just left of the umbilicus. MUSCULOSKELETAL: Extremities without clubbing, cyanosis, or edema. No obvious deformities. NEUROLOGICAL: Awake and alert. No obvious cranial nerve deficits. Motor grossly within normal limits. Five out of 5 muscle strength in the arms and legs. Normal speech. PSYCHIATRIC: Appropriate mood and affect; insight and judgment normal. Laboratory Laboratory Tests Test 01/11/18 03:00 01/11/18 12:55 White Blood Count 20.0 Red Blood Count 5.95 Hemoglobin 17.0 Hematocrit 49.4 Mean Corpuscular Volume 83.0 Mean Corpuscular Hemoglobin 28.6 Mean Corpuscular Hemoglobin Concent 34.4 Red Cell Distribution Width 16.7 Platelet Count 253 Mean Platelet Volume 8.7 Neutrophils (%) (Auto) 92.5 Lymphocytes (%) (Auto) 2.7 Monocytes (%) (Auto) 4.6 Eosinophils (%) (Auto) 0.0 Basophils (%) (Auto) 0.2 Neutrophils # (Auto) 18.5 Lymphocytes # (Auto) 0.5 Monocytes # (Auto) 0.9 Eosinophils # (Auto) 0.0 Basophils # (Auto) 0.0 CBC Comment AUTO DIFF Differential Total Cells Counted 100 Neutrophils % (Manual) 77 Band Neutrophils % 17 Lymphocytes % 1 Monocytes % 3 Neutrophils # (Manual) 19.2 Metamyelocytes 2 Differential Comment FINAL DIFF MANUAL Toxic Vacuolation PRESENT Platelet Estimate NORMAL Platelet Morphology Comment NORMAL Red Cell Morphology Comment NORMAL Prothrombin Time 10.5 Prothromb Time International Ratio 1.0 Activated Partial Thromboplast Time 22.5 Blood Urea Nitrogen 15 Creatinine 1.40 Random Glucose 170 Total Protein 7.8 Albumin 3.9 Calcium Level 9.2 Alkaline Phosphatase 119 Aspartate Amino Transf (AST/SGOT) 331 Alanine Aminotransferase (ALT/SGPT) 238 Total Bilirubin 3.5 Sodium Level 141 Potassium Level 3.5 Chloride Level 104 Carbon Dioxide Level 29.6 Anion Gap 7 Total Creatine Kinase 167 Troponin I LESS THAN 0.02 Lipase 18452 Lactic Acid Level 3.5 Result Diagram: 01/11/18 0300 01/11/18 0300 Imaging Last 48 hours Impressions Abdomen/Pelvis CT 01/11/18 0305 Signed Impressions: Service Date/Time: Thursday, January 11, 2018 04:57 - CONCLUSION: 1. Abnormal pancreas diagnostic of acute pancreatitis. There is peripancreatic inflammation and a small volume of free fluid in the abdomen and pelvis. No pancreatic necrosis or pancreatitis associated complications are currently present. 2. Small stones are present within the gallbladder. There is no bile duct dilatation. 3. There are multiple bilateral renal lesions which are incompletely characterized on this study and could represent solid renal lesions or complex cysts. These should be further evaluation once the patient's condition permits. These ideally should be further evaluated with renal protocol MRI with and without intravenous contrast. 4. Nonacute findings include nonobstructing bilateral renal stones and moderate atherosclerotic disease. Mono Wesley MD Chest X-Ray 01/11/18 0000 Signed Impressions: Service Date/Time: Thursday, January 11, 2018 09:33 - CONCLUSION: No acute cardiopulmonary disease. Fabián Flores Jr., MD Assessment and Plan Assessment and Plan 62 year old male with gallstone pancreatitis -NPO -IVF -Pain Control -Repeat liver enzymes tomorrow -If they do not trend down -- may benefit from MRCP and possible ERCP -Discussed plan to recover from pancreatitis and then discuss laparoscopic cholecystectomy -Thank you for this consult; We will continue to follow Discussed Condition With Dr. Tinajero and Mrs. Srena Attending Statement The exam, history, and the medical decision-making described in the above note were completed with the assistance of the mid-level provider. I reviewed and agree with the findings presented. I attest that I had a [id number] encounter with the patient on the same day, and personally performed and documented my assessment and findings in the medical record. Patient with GS pancreatitis, stable abdominal exam, TTP epigastric area, non-surgical abdomen long d/w and patient at on 01/11/18, discussed role of surgery ( Cholecystectomy), discussed risk/benefits/alternatives to surgery will follow along, continue supportive care for pancreatitis, will do surgery once pancreatitis is fully cooled off thank you for consult Caty Pleitez/First Ken LARA Jan 11, 2018 15:01 Ernesto Tinajero MD Jan 12, 2018 13:25
[2018-01-11 15:47] LABS: BLOOD, URINE LARGE (NEG); GLUCOSE,URINE TRACE mg/dL (NEG); KETONE, URINE NEG (NEG); NITRITE,URINE NEG (NEG); PH, URINE 5.5 (5.0-8.5); URINE LEUKOCYTE ESTERASE NEG (NEG)
[2018-01-11 15:48] LABS: URINE COLOR DARK-BROWN (YELLW/STRAW)
[2018-01-11 15:50] LABS: BILIRUBIN, URINE NEG (NEG)
[2018-01-11] MEDS: ONDANSETRON HCL 4 MG/2 ML VIAL IVP PRN (16:32)
[2018-01-11] MEDS: MORPHINE SULFATE 4 MG/ML INJ IV PUSH PRN ×2 (18:03→21:17)
[2018-01-11] MEDS: DIVALPROEX DR 500 MG TABEC PO SCH (20:39)
[2018-01-12] VITALS (17 sets, daily range): BP systolic 110–158; BP diastolic 63–92; PULSE 99–140; RESP 12–21; TEMP 97.3–101.2; O2SAT 90–100
[2018-01-12] MEDS: MORPHINE SULFATE 4 MG/ML INJ IV PUSH PRN ×3 (00:30→08:25)
[2018-01-12] MEDS: HYDROmorphone HCL PF 2 MG/ML VIAL IV PUSH PRN ×4 (01:33→20:51)
[2018-01-12] MEDS: ONDANSETRON HCL 4 MG/2 ML VIAL IVP PRN ×2 (01:40→16:55)
[2018-01-12] MEDS: PIPERACIL-TAZO 4.5 GM PREMIX 100 ML IV SCH ×4 (04:08→20:49)
[2018-01-12 08:13] LABS: ALBUMIN 2.6 GM/DL (3.4-5.0); ALKALINE PHOSPHATASE 86 U/L (45-117); ALT (GPT) 236 U/L (12-78); AST (GOT) 178 U/L (15-37); BICARBONATE 21.3 MEQ/L (21.0-32.0); CALCIUM 7.5 MG/DL (8.5-10.1); CHLORIDE 105 MEQ/L (98-107); CREATININE 1.47 MG/DL (0.60-1.30); GLOMERULAR FILTRATION RATE 49 ML/MIN (>89); GLUCOSE,RANDOM 104 MG/DL (74-106); PHOSPHORUS 3.6 MG/DL (2.5-4.9); SODIUM (NA) 136 MEQ/L (136-145); TOTAL BILIRUBIN ADULT 3.8 MG/DL (0.2-1.0); TOTAL PROTEIN 6.5 GM/DL (6.4-8.2)
[2018-01-12] MEDS: CITALOPRAM HYDROBROMIDE 40 MG TAB PO SCH (08:23)
[2018-01-12] MEDS: FAMOTIDINE 20 MG/2 ML VIAL IV PUSH SCH ×2 (08:24→20:51)
[2018-01-12] MEDS: DIVALPROEX DR 500 MG TABEC PO SCH ×2 (08:24→20:51)
[2018-01-12] MEDS: DOCUSATE SODIUM 50 MG/SENNA 8.6 MG TAB PO SCH ×2 (08:24→20:52)
[2018-01-12] MEDS: PANTOPRAZOLE SOD 20 MG DELAYED RELEASE TAB PO SCH (08:24)
[2018-01-12] MEDS: SODIUM CHLOR 0.9% 1000 ML INJ 1,000 ML IV SCH ×2 (08:25→23:45)
[2018-01-12] MEDS: SODIUM CHLORIDE 0.9% FLUSH 10 ML FLUSH IV FLUSH SCH ×2 (08:25→20:49)
[2018-01-12] MEDS: ROFLUMILAST 500 MCG TAB PO SCH (08:25)
[2018-01-12 08:30] LABS: BLOOD UREA NITROGEN 26 MG/DL (7-18)
[2018-01-12 08:46] LABS: AUTOMATED NEUTROPHIL # 15.8 TH/MM3 (1.8-7.7); BASOPHIL % 0.1 % (0.0-2.0); HEMATOCRIT 47.7 % (39.0-51.0); HEMOGLOBIN 15.7 GM/DL (13.0-17.0); LYMPH % 2.5 % (9.0-44.0); LYMPHOCYTE # 0.4 TH/MM3 (1.0-4.8); MEAN CORPUSCULAR HEMOGLOBIN 27.9 PG (27.0-34.0); MEAN CORPUSCULAR HGB CONC 32.8 % (32.0-36.0); MEAN PLATELET VOLUME 8.9 FL (7.0-11.0); MONO % 5.3 % (0.0-8.0); MONOCYTE # 0.9 TH/MM3 (0-0.9); NEUT % 92.1 % (16.0-70.0); PLATELET COUNT 151 TH/MM3 (150-450); RED BLOOD COUNT 5.61 MIL/MM3 (4.50-5.90); RED CELL DISTRIBUTION WIDTH 16.4 % (11.6-17.2); WHITE BLOOD COUNT 17.2 TH/MM3 (4.0-11.0)
[2018-01-12 09:48] LABS: BANDS 24 % (0-6); LYMPHOCYTES 2 % (9-44); METAMYELOCYTES 1 % (0-1); MONOCYTES 2 % (0-8); NEUTROPHIL # MANUAL DIFF 16.5 TH/MM3 (1.8-7.7); POLYS (SEG NEUTROPHILS) 71 % (16-70)
[2018-01-12] MEDS ORDERED: DILTIAZEM HCL 25 MG/5 ML VIAL IV ONE (11:15)
[2018-01-12] MEDS ORDERED: methylPREDNISolone SOD SUCC 125 MG/2 ML VIAL IV PUSH ONE (11:15)
[2018-01-12] MEDS ORDERED: FUROSEMIDE 40 MG/4 ML VIAL ONE (11:27)
[2018-01-12] MEDS ORDERED: FUROSEMIDE 40 MG/4 ML VIAL IV PUSH ONE (11:30)
--- NOTE | 2018-01-12 11:38 | HHI.PR ---
Subjective Remarks Rapid response team called at 11 am Patient with moderate respiratory distress, lethargic cyanotic as per RN initially Patient tachycardic into the 150s. Denies chest pain or palpitation c/o sob Objective Vitals Vital Signs Date Time Temp Pulse Resp B/P (MAP) Pulse Ox O2 Delivery O2 Flow Rate FiO2 01/12/18 08:29 97.3 140 18 133/80 (97) 90 01/12/18 04:00 98.7 123 18 120/63 (82) 91 01/12/18 00:00 97.5 99 18 123/67 (85) 97 01/11/18 20:00 97.9 123 20 131/86 (101) 93 01/11/18 16:00 99.3 124 16 141/93 (109) 92 01/11/18 13:26 109 18 166/91 (116) 93 Room Air I/O 01/11/18 01/11/18 01/11/18 01/12/18 01/12/18 01/12/18 07:00 15:00 23:00 07:00 15:00 23:00 Intake Total 2075 ml Output Total 780 ml Balance 2075 ml -780 ml Intake IV Total 2075 ml Output Urine Total 780 ml Result Diagram: 01/12/18 0825 01/12/18 0406 Imaging Last Impressions Abdomen/Pelvis CT 01/11/18 0305 Signed Impressions: Service Date/Time: Thursday, January 11, 2018 04:57 - CONCLUSION: 1. Abnormal pancreas diagnostic of acute pancreatitis. There is peripancreatic inflammation and a small volume of free fluid in the abdomen and pelvis. No pancreatic necrosis or pancreatitis associated complications are currently present. 2. Small stones are present within the gallbladder. There is no bile duct dilatation. 3. There are multiple bilateral renal lesions which are incompletely characterized on this study and could represent solid renal lesions or complex cysts. These should be further evaluation once the patient's condition permits. These ideally should be further evaluated with renal protocol MRI with and without intravenous contrast. 4. Nonacute findings include nonobstructing bilateral renal stones and moderate atherosclerotic disease. Mono Wesley MD Chest X-Ray 01/11/18 0000 Signed Impressions: Service Date/Time: Thursday, January 11, 2018 09:33 - CONCLUSION: No acute cardiopulmonary disease. Fabián Green Jr., MD Objective Remarks Lethargic but arousable and oriented to place. There is moderate respiratory distress observed. Severely decreased air movement in bilateral lung dennis, no wheezing, rhonchi or crackles auscultated. abdomen is obese, soft, mildly tender to palpation No edema in extremities short and big neck - unable to asses for JVD Medications and IVs Current Medications Medications (Trade) Dose Ordered Sig/Kumar Route Start Time Stop Time Status Last Admin Sodium Chloride 1,000 ml @ 150 mls/hr Q6H40M IV 01/11/18 05:48 01/12/18 08:25 (NS Flush) 2 ml UNSCH PRN IV FLUSH 01/11/18 06:00 (NS Flush) 2 ml BID IV FLUSH 01/11/18 09:00 01/12/18 08:25 (Zofran Inj) 4 mg Q6H PRN IVP 01/11/18 06:00 01/12/18 01:40 (Sondra-Colace) 1 tab BID PO 01/11/18 09:00 01/12/18 08:24 (Milk Of Magnesia Liq) 30 ml Q12H PRN PO 01/11/18 06:00 (Senokot) 17.2 mg Q12H PRN PO 01/11/18 06:00 (Dulcolax Supp) 10 mg DAILY PRN RECTAL 01/11/18 06:00 (Lactulose Liq) 30 ml DAILY PRN PO 01/11/18 06:00 (Pepcid Inj) 20 mg Q12H IV PUSH 01/11/18 09:00 01/12/18 08:24 (Morphine Inj) 2 mg Q3H PRN IV PUSH 01/11/18 10:45 01/11/18 14:20 (Morphine Inj) 4 mg Q3H PRN IV PUSH 01/11/18 10:45 01/12/18 08:25 (Dilaudid Pf Inj) 1 mg Q4H PRN IV PUSH 01/11/18 12:00 01/12/18 09:55 (Lovenox Inj) 40 mg Q24H SQ 01/11/18 12:00 01/11/18 13:51 (CeleXA) 40 mg DAILY PO 01/12/18 09:00 01/12/18 08:23 (Depakote Dr) 500 mg BID PO 01/11/18 21:00 01/12/18 08:24 (Daliresp) 500 mcg DAILY PO 01/12/18 09:00 (Protonix) 20 mg DAILY PO 01/11/18 14:00 01/12/18 08:24 (Catapres) 0.1 mg Q6H PRN PO 01/11/18 12:45 Piperacillin Sod/ Tazobactam Sod 100 ml @ 200 mls/hr Q6H IV 01/11/18 21:00 01/12/18 08:23 (Lasix Inj) 40 mg ONCE ONCE IV PUSH 01/12/18 11:30 01/12/18 11:31 Urinary Catheter: No Vascular Central Line Catheter: No A/P Problem List: (1) Acute pancreatitis ICD Code: K85.90 - Acute pancreatitis without necrosis or infection, unspecified Status: Acute Plan: Despite gallstone pancreatitis since there is cholelithiasis, transaminitis and elevated alk phos. Likely a passed a stone. CT abdomen and pelvis reviewed by me showed changes consistent with acute pancreatitis with peripancreatic inflammation and small volume of free fluid in the abdomen and pelvis. There is no pancreatic necrosis of pancreatic associated complications currently present. Initially started on IV fluids. Pain control with IV morphine and IV Dilaudid for breakthrough pain. GI consulted, appreciate recommendations. Consult general surgery as likely the gallbladder should be removed on this admission. 01/12 lipase is trending down from 20,782 on admission to 2740. Old IV fluids for now given respiratory distress. General surgery consulted. Appreciate recommendations. (2) Cholelithiasis ICD Code: K80.20 - Calculus of gallbladder without cholecystitis without obstruction Status: Acute Plan: Small stones present within the gallbladder on CT abdomen and pelvis however there is no bile duct dilatation. Mitral liver function test if difference in test elevated the patient will probably benefit from ERCP or MRCP. (3) SIRS (systemic inflammatory response syndrome) ICD Code: R65.10 - Systemic inflammatory response syndrome (SIRS) of non- infectious origin without acute organ dysfunction Plan: Present on admission. Patient is afebrile however tachycardic and with leukocytosis of 20 K with 70% bands We will order chest x-ray and UA to rule out infection. No signs of necrosis on CT abdomen and pelvis. IV fluids IV Zosyn Check lactic acid as per sepsis protocol 01/12 chest x-ray without any acute cardiac pulmonary disease, UA positive. Follow-up urine cultures. Continue IV antibiotics as above. (4) Leukocytosis ICD Code: D72.829 - Elevated white blood cell count, unspecified Plan: WBC 20 K with 17% bands. Monitor CBC with differential Likely leukocytosis secondary to acute pancreatitis. 3/6 WBCs trending down. Patient still has bandemia. WBC went down from 20 K to 17.2 K. (5) HAMMAD (acute kidney injury) ICD Code: N17.9 - Acute kidney failure, unspecified Plan: Likely secondary to dehydration. CT abdomen and pelvis did not show any obstruction. Aggressive IV fluid resuscitation. Monitor BUN and creatinine, strict I's and O's, avoid nephrotoxins. (6) Transaminitis ICD Code: R74.0 - Nonspecific elevation of levels of transaminase and lactic acid dehydrogenase [LDH] Plan: Likely secondary to gallstone pancreatitis with passed stone. Monitor LFTs Check hepatitis profile. GI consulted. Follow-up recommendations.? MRCP (7) Kidney lesion, [place], bilateral ICD Code: N28.9 - Disorder of kidney and ureter, unspecified Plan: CT abdomen and pelvis shows multiple bilateral renal lesions versus complex cysts. An MRI with and without IV contrast should be obtained once the patient is more stable. (8) Nausea & vomiting ICD Code: R11.2 - Nausea with vomiting, unspecified Plan: Likely due to acute pancreatitis. We will place on IV Zofran. (9) Acute respiratory failure with hypoxia and hypercarbia ICD Code: J96.01 - Acute respiratory failure with hypoxia; J96.02 - Acute respiratory failure with hypercapnia Plan: The patient went into respiratory distress and hypoxemia on around 11 AM. Mild right lower lobe infiltrate was seen on stat chest x-ray. - Reviewed by me. Since patient lethargic suspect possible aspiration pneumonia. Continue IV Zosyn. ABG ordered stat during rapid response showed a pH of 7.17 with a PCO2 of 82 and PO2 of 79 and the patient was on a simple mask at the time. Supplemental oxygen provided. Respiratory failure likely secondary to COPD exacerbation and spatial pneumonia. Continue IV antibiotics, will order on 25 mg of IV Solu-Medrol once and then place on 60 mg IV every 6 hours. Nebulizer treatments. Transferred to intensive care unit - will place on BiPAP 08/13. (10) Tachycardia ICD Code: R00.0 - Tachycardia, unspecified Status: Acute Plan: Patient's heart rate noted to be in the 150s. Telemetry strip reviewed by me show possible sinus tachycardia. EKG ordered stat and reviewed by me showed a ventricular rate of 45 bpm, no ST- T changes suggestive of active ischemia. Cardizem 20 mg IV was administered on telemetry strip after the heart rate was slowed down showed sinus rhythm. Continue to monitor on telemetry and treat hypoxemia, hypercarbia. Assessment and Plan GI prophylaxis: On PPI. DVT prophylaxis: Continue Lovenox subcutaneously. Discharge Planning 45 minutes of critical care time used on patient care. Transferred to the intensive care unit. Case was discussed with rapid response RN, patient's RN, patient's family. Problem Qualifiers (1) Acute pancreatitis: Qualified Codes: K85.90 - Acute pancreatitis without necrosis or infection, unspecified (2) Cholelithiasis: (3) Leukocytosis: Qualified Codes: D72.825 - Bandemia (4) Nausea & vomiting: Melvin Mcneal MD Jan 12, 2018 11:38
--- NOTE | 2018-01-12 11:48 | RADRPT ---
EXAM DATE/TIME: 01/12/2018 11:14 [facility] COMPARISON: CHEST SINGLE AP, January 11, 2018, 9:33. INDICATIONS : Short of breath MEDICAL HISTORY : Chronic obstructive pulmonary disease. diabetic, GERD SURGICAL HISTORY : infusport ENCOUNTER: Initial ACUITY: 1 day PAIN SCORE: Non-responsive. LOCATION: Bilateral chest FINDINGS: There is a mild infiltrate in the right lower lung. Otherwise, the lung dennis remain grossly clear. No definite pleural effusions. There is some mild pulmonary venous congestion. The heart size is stab le. There is a left [id number]-Pjvt in place. There is no pneumothorax. CONCLUSION: 1. Mild right lower lung infiltrate. 2. Otherwise, no significant changes compared to the prior exam. Gopal Yee MD on January 12, 2018 at 11:46 Board Certified Radiologist. This report was verified electronically.
--- NOTE | 2018-01-12 13:46 | HHI.GIFU ---
Subjective Remarks Pt in bed, on BiPAP. Complaining of some abdominal pain, worse in upper abdomen. (Maryuri Garza) Objective Vitals I&O Vital Signs Date Time Temp Pulse Resp B/P (MAP) Pulse Ox O2 Delivery O2 Flow Rate FiO2 01/12/18 08:29 97.3 140 18 133/80 (97) 90 01/12/18 04:00 98.7 123 18 120/63 (82) 91 01/12/18 00:00 97.5 99 18 123/67 (85) 97 01/11/18 20:00 97.9 123 20 131/86 (101) 93 01/11/18 16:00 99.3 124 16 141/93 (109) 92 I/O 01/11/18 01/11/18 01/11/18 01/12/18 01/12/18 01/12/18 07:00 15:00 23:00 07:00 15:00 23:00 Intake Total 2075 ml Output Total 780 ml Balance 2075 ml -780 ml Intake IV Total 2075 ml Output Urine Total 780 ml Laboratory Laboratory Tests Test 01/11/18 14:40 01/11/18 18:52 01/12/18 04:06 01/12/18 08:25 Urine Color DARK-BROWN Urine Turbidity CLOUDY Urine pH 5.5 Urine Specific Anthony GREATER THAN 1.050 Urine Protein 100 Urine Glucose (UA) TRACE Urine Ketones NEG Urine Occult Blood LARGE Urine Nitrite NEG Urine Bilirubin NEG Urine Urobilinogen 2.0 Urine Leukocyte Esterase NEG Urine RBC Urine WBC 34 Microscopic Urinalysis Comment CULTURE INDICATED Lactic Acid Level 1.1 Blood Urea Nitrogen 26 Creatinine 1.47 Random Glucose 104 Total Protein 6.5 Albumin 2.6 Calcium Level 7.5 Phosphorus Level 3.6 Magnesium Level 2.0 Alkaline Phosphatase 86 Aspartate Amino Transf (AST/SGOT) 178 Alanine Aminotransferase (ALT/SGPT) 236 Total Bilirubin 3.8 Sodium Level 136 Potassium Level 4.2 Chloride Level 105 Carbon Dioxide Level 21.3 Anion Gap 10 Estimat Glomerular Filtration Rate 49 Lipase 2740 White Blood Count 17.2 Red Blood Count 5.61 Hemoglobin 15.7 Hematocrit 47.7 Mean Corpuscular Volume 85.0 Mean Corpuscular Hemoglobin 27.9 Mean Corpuscular Hemoglobin Concent 32.8 Red Cell Distribution Width 16.4 Platelet Count 151 Mean Platelet Volume 8.9 Neutrophils (%) (Auto) 92.1 Lymphocytes (%) (Auto) 2.5 Monocytes (%) (Auto) 5.3 Eosinophils (%) (Auto) 0.0 Basophils (%) (Auto) 0.1 Neutrophils # (Auto) 15.8 Lymphocytes # (Auto) 0.4 Monocytes # (Auto) 0.9 Eosinophils # (Auto) 0.0 Basophils # (Auto) 0.0 CBC Comment AUTO DIFF Differential Total Cells Counted 100 Neutrophils % (Manual) 71 Band Neutrophils % 24 Lymphocytes % 2 Monocytes % 2 Neutrophils # (Manual) 16.5 Metamyelocytes 1 Differential Comment FINAL DIFF MANUAL Platelet Estimate NORMAL Platelet Morphology Comment NORMAL Red Cell Morphology Comment NORMAL Test 01/12/18 11:15 Blood Gas Puncture Site LT BRACHIAL Blood Gas Patient Temperature 98.6 Blood Gas HCO3 29 Blood Gas Base Excess 1.0 Blood Gas Oxygen Saturation 91 Arterial Blood pH 7.17 Arterial Blood Partial Pressure CO2 82 Arterial Blood Partial Pressure O2 79 Arterial Blood Oxygen Content 20.5 Arterial Blood Carboxyhemoglobin 1.9 Arterial Blood Methemoglobin 0.8 Blood Gas Hemoglobin 16.0 Oxygen Delivery Device SIMPLE MASK Blood Gas Liter Flow 6 Date/Time Source Procedure Growth Status 01/11/18 14:40 Urine Clean Catch Urine Culture - Preliminary IMMATURE GROWTH - REINCUBATE Resulted Imaging Last Impressions Chest X-Ray 01/12/18 0000 Signed Impressions: Service Date/Time: Friday, January 12, 2018 11:14 - CONCLUSION: 1. Mild right lower lung infiltrate. 2. Otherwise, no significant changes compared to the prior exam. Gopal Yee MD Abdomen/Pelvis CT 01/11/18 0305 Signed Impressions: Service Date/Time: Thursday, January 11, 2018 04:57 - CONCLUSION: 1. Abnormal pancreas diagnostic of acute pancreatitis. There is peripancreatic inflammation and a small volume of free fluid in the abdomen and pelvis. No pancreatic necrosis or pancreatitis associated complications are currently present. 2. Small stones are present within the gallbladder. There is no bile duct dilatation. 3. There are multiple bilateral renal lesions which are incompletely characterized on this study and could represent solid renal lesions or complex cysts. These should be further evaluation once the patient's condition permits. These ideally should be further evaluated with renal protocol MRI with and without intravenous contrast. 4. Nonacute findings include nonobstructing bilateral renal stones and moderate atherosclerotic disease. Mono Wesley MD Physical Exam HEENT: Normocephalic; atraumatic CHEST: Tachypneic. BiPAP. CARDIAC: Sinus tachycardia ABDOMEN: Distended, semi-firm, mild diffuse tenderness, bowel sounds active SKIN: Normal; no rash; no jaundice. GRAIN SAMPLER: Alert and oriented x 3 (Maryuri Garza) Assessment and Plan Plan ASSESSMENT - epigastric pain, n/v, elevated LFTs- pancreatitis, could have had gallstone that passed. lipase > 20,000. LFTs are elevated in obstructive pattern but CT showed no ductal dilatation. - leukocytosis - WBC 20k 2/2 above (01/12) Pt was Halicat today for respiratory distress, now on BiPAP. Now in I[facility]. Reports of a-flutter on floor now S/P Cardizem bolus and he is now sinus tachycardia. Transaminitis- LFTs trending down. AST-178 ALT-236 T bili-3.8 Alk phos-86. Hepatitis panel pending. Pancreatitis- ? Secondary to gallstone. Lipase trending down -2740. Pt was unable to have MRCP done yet, due to respiratory issues and transfer, exam pending. ? ERCP depending on results, however, pt will need to be more stable for this. GS consult appreciated- they discussed possibility of cholecystectomy, this was prior to pts change in status. Leukocytosis- some improvement. Afebrile. On Zosyn. PLAN - MRCP - Monitor LFTs - Hepatitis panel pending - Continue Zosyn - Further recommendations to be determined by clinical course and results of above Pt has been seen and examined by myself and Dr. Mc and this note is written on his behalf (Maryuri Garza) Physician Comments Recent events noted, LFT's and WBC improving. Continue current treatment plan and MRCP when more stable. (Ja Mc MD) Maryuri Garza Jan 12, 2018 13:46 Ja Mc MD Jan 12, 2018 14:11
[2018-01-12 14:35] LABS: HEPATITIS A AB IGM NEGATIVE (NEGATIVE); HEPATITIS B CORE AB IGM NEGATIVE (NEGATIVE)
--- NOTE | 2018-01-12 14:44 | HHI.PR ---
cc: Ernesto Tinajero MD Subjective Subjective Notes Moved [place] [facility] [place] due to respiratory distress-- on BiPAP Objective Vitals/I&O Vital Signs Date Time Temp Pulse Resp B/P (MAP) Pulse Ox O2 Delivery O2 Flow Rate FiO2 01/12/18 14:16 94 50 01/12/18 08:29 97.3 140 18 133/80 (97) 01/11/18 13:26 Room Air 01/11/18 05:36 2.00 Labs Laboratory Tests Test 01/11/18 18:52 01/12/18 04:06 01/12/18 08:25 01/12/18 11:15 Lactic Acid Level 1.1 Blood Urea Nitrogen 26 Creatinine 1.47 Random Glucose 104 Total Protein 6.5 Albumin 2.6 Calcium Level 7.5 Phosphorus Level 3.6 Magnesium Level 2.0 Alkaline Phosphatase 86 Aspartate Amino Transf (AST/SGOT) 178 Alanine Aminotransferase (ALT/SGPT) 236 Total Bilirubin 3.8 Sodium Level 136 Potassium Level 4.2 Chloride Level 105 Carbon Dioxide Level 21.3 Anion Gap 10 Estimat Glomerular Filtration Rate 49 Lipase 2740 White Blood Count 17.2 Red Blood Count 5.61 Hemoglobin 15.7 Hematocrit 47.7 Mean Corpuscular Volume 85.0 Mean Corpuscular Hemoglobin 27.9 Mean Corpuscular Hemoglobin Concent 32.8 Red Cell Distribution Width 16.4 Platelet Count 151 Mean Platelet Volume 8.9 Neutrophils (%) (Auto) 92.1 Lymphocytes (%) (Auto) 2.5 Monocytes (%) (Auto) 5.3 Eosinophils (%) (Auto) 0.0 Basophils (%) (Auto) 0.1 Neutrophils # (Auto) 15.8 Lymphocytes # (Auto) 0.4 Monocytes # (Auto) 0.9 Eosinophils # (Auto) 0.0 Basophils # (Auto) 0.0 CBC Comment AUTO DIFF Differential Total Cells Counted 100 Neutrophils % (Manual) 71 Band Neutrophils % 24 Lymphocytes % 2 Monocytes % 2 Neutrophils # (Manual) 16.5 Metamyelocytes 1 Differential Comment FINAL DIFF MANUAL Platelet Estimate NORMAL Platelet Morphology Comment NORMAL Red Cell Morphology Comment NORMAL Blood Gas Puncture Site LT BRACHIAL Blood Gas Patient Temperature 98.6 Blood Gas HCO3 29 Blood Gas Base Excess 1.0 Blood Gas Oxygen Saturation 91 Arterial Blood pH 7.17 Arterial Blood Partial Pressure CO2 82 Arterial Blood Partial Pressure O2 79 Arterial Blood Oxygen Content 20.5 Arterial Blood Carboxyhemoglobin 1.9 Arterial Blood Methemoglobin 0.8 Blood Gas Hemoglobin 16.0 Oxygen Delivery Device SIMPLE MASK Blood Gas Liter Flow 6 Test 01/12/18 13:58 Blood Gas Puncture Site LT RADIAL Blood Gas Patient Temperature 98.6 Blood Gas HCO3 28 Blood Gas Base Excess 0.6 Blood Gas Oxygen Saturation 95 Arterial Blood pH 7.21 Arterial Blood Partial Pressure CO2 72 Arterial Blood Partial Pressure O2 128 Arterial Blood Oxygen Content 21.1 Arterial Blood Carboxyhemoglobin 1.5 Arterial Blood Methemoglobin 1.6 Blood Gas Hemoglobin 15.7 Oxygen Delivery Device BiPAP Blood Gas Ventilator Setting [id number] Blood Gas Inspired Oxygen 50 Date/Time Source Procedure Growth Status 01/11/18 14:40 Urine Clean Catch Urine Culture - Preliminary IMMATURE GROWTH - REINCUBATE Resulted Radiology Last 48 hours Impressions Abdomen/Pelvis CT 01/11/18 0305 Signed Impressions: Service Date/Time: Thursday, January 11, 2018 04:57 - CONCLUSION: 1. Abnormal pancreas diagnostic of acute pancreatitis. There is peripancreatic inflammation and a small volume of free fluid in the abdomen and pelvis. No pancreatic necrosis or pancreatitis associated complications are currently present. 2. Small stones are present within the gallbladder. There is no bile duct dilatation. 3. There are multiple bilateral renal lesions which are incompletely characterized on this study and could represent solid renal lesions or complex cysts. These should be further evaluation once the patient's condition permits. These ideally should be further evaluated with renal protocol MRI with and without intravenous contrast. 4. Nonacute findings include nonobstructing bilateral renal stones and moderate atherosclerotic disease. Mono Wesley MD Chest X-Ray 01/11/18 0000 Signed Impressions: Service Date/Time: Thursday, January 11, 2018 09:33 - CONCLUSION: No acute cardiopulmonary disease. Fabián Flores Jr., MD Cardiovascular: Regular Lungs: Clear Abdomen: Other (RUQ and LUQ abdominal pain with palpation; distended ) Extremities: No edema A/P Assessment and Plan 62 year old male with gallstone pancreatitis -Continue to stabilize from respiratory standpoint -NPO -Monitor liver enzymes and lipase -Pain control -Suggest MRCP once more stable -Will continue to follow for timing of laparoscopic cholecystectomy Attending Statement The exam, history, and the medical decision-making described in the above note were completed with the assistance of the mid-level provider. I reviewed and agree with the findings presented. I attest that I had a [id number] encounter with the patient on the same day, and personally performed and documented my assessment and findings in the medical record. patient with gallstone pancreatitis, slow improvement in pancreatitis abdomen soft, some tenderness without peritonitis will follow Caty Pleitez/Utilization Management Manager MARCO Jan 12, 2018 14:44 Ernesto Tinajero MD Jan 18, 2018 23:35
[2018-01-12] MEDS: ENOXAPARIN SODIUM 40 MG/0.4 ML SYRINGE SQ SCH (16:17)
[2018-01-12] MEDS: MORPHINE SULFATE 2 MG/ML INJ IV PUSH PRN (16:18)
[2018-01-12] MEDS: methylPREDNISolone SOD SUCC 125 MG/2 ML VIAL IV PUSH SCH (18:12)
[2018-01-12] MEDS ORDERED: CHLORHEXIDINE GLUCONATE 2 % 1 PACK (2 CLOTHS)(extra cloths) TOPICAL PRN (20:45)
[2018-01-12] MEDS ORDERED: ACETAMINOPHEN 325 MG TAB PO PRN ×2 (23:45)
[2018-01-13] VITALS (22 sets, daily range): BP systolic 120–169; BP diastolic 64–105; PULSE 104–123; RESP 17–30; TEMP 98.4–99; O2SAT 94–100
[2018-01-13] MEDS: PIPERACIL-TAZO 4.5 GM PREMIX 100 ML IV SCH ×4 (02:25→20:22)
[2018-01-13] MEDS: methylPREDNISolone SOD SUCC 125 MG/2 ML VIAL IV PUSH SCH ×5 (02:25→23:07)
[2018-01-13] MEDS: HYDROmorphone HCL PF 2 MG/ML VIAL IV PUSH PRN ×2 (02:26→23:08)
[2018-01-13] MEDS: CHLORHEXIDINE GLUCONATE 2 % 1 PACK (2 CLOTHS)(taper/protocol) TOPICAL SCH (04:00)
[2018-01-13] MEDS ORDERED: LORazepam 2 MG/ML VIAL IV PUSH ONE (06:15)
--- NOTE | 2018-01-13 07:01 | RADRPT ---
EXAM DATE/TIME: 01/13/2018 06:40 [facility] COMPARISON: CHEST SINGLE AP, January 12, 2018, 11:14. INDICATIONS : Short of breath. MEDICAL HISTORY : Chronic obstructive pulmonary disease. diabetic, GERD SURGICAL HISTORY : Infusaport. ENCOUNTER: Subsequent ACUITY: 4 - 6 days PAIN SCORE: 0/10 LOCATION: Bilateral chest FINDINGS: Underinflated AP view of the chest demonstrates a normal-sized cardiac silhouette. Lungs are underinf lated with mild bibasilar airspace opacities. No pleural effusion or pneumothorax is identified. Bone s demonstrate no acute finding. Left chest wall [id number] remains present. CONCLUSION: Stable chest x-ray with marked underinflation and bibasilar airspace opacities which could represent atelectasis or airspace consolidation. Mono Wesley MD on January 13, 2018 at 6:59 Board Certified Radiologist. This report was verified electronically.
--- NOTE | 2018-01-13 08:18 | EKG ---
Date Performed: 01/12/2018 Time Performed: 11:15:07 PTAGE: 62 years EKG: SINUS TACHYCARDIA ARTIFACT IN V3 NONSPECIFIC ST-T ABNORMALITY INFERIORLY Since PREVIOUS TRACING , no significant change noted PREVIOUS TRACIN01/11/2018 02.58 DOCTOR: Fahad Hill Interpretating Date/Time 01/13/2018 08:17:24
[2018-01-13] MEDS ORDERED: INSULIN NovoLIN REGULAR SUPPLEMENTAL SCALE SQ SCH (09:00)
[2018-01-13] MEDS ORDERED: GLUCAGON 1 MG/ML VIAL OTHER PRN (09:00)
[2018-01-13] MEDS: BUDESONIDE-FORMOTEROL 160/4.5 MCG INHALER INH SCH ×2 (09:00→20:24)
[2018-01-13] MEDS ORDERED: RESP: ALBUTEROL 2.5 MG/IPRATROPIUM 0.5 MG NEB (PRN) NEB (09:00)
[2018-01-13] MEDS ORDERED: DEXTROSE 50% IN WATER 50 ML VIAL(D50) IV PUSH PRN (09:00)
[2018-01-13] MEDS: ONDANSETRON HCL 4 MG/2 ML VIAL IVP PRN ×2 (09:19→15:31)
[2018-01-13] MEDS: SODIUM CHLORIDE 0.9% FLUSH 10 ML FLUSH IV FLUSH SCH ×2 (09:19→15:31)
[2018-01-13] MEDS: MORPHINE SULFATE 4 MG/ML INJ IV PUSH PRN ×3 (09:19→15:30)
[2018-01-13] MEDS: ROFLUMILAST 500 MCG TAB PO SCH (09:20)
--- NOTE | 2018-01-13 09:40 | MB ---
cc: Chandni Tello MD DATE OF CONSULT: REASON FOR CONSULTATION: Respiratory distress and critical care management. HISTORY OF PRESENT ILLNESS: Patient is a 62-year-old male with past medical history of COPD, on 2 L home oxygen nocturnally, diabetes mellitus type 2, renal stones who was admitted to [facility] on 01/11 under hospitalist service for acute pancreatitis. He had a CT scan of the abdomen and pelvis which showed findings compatible with acute pancreatitis. There was no evidence of any pancreatic necrosis. Small stones present within the gallbladder. No bile duct dilatation seen. In addition, the patient has nonobstructing bilateral renal stones. He has been seen by GI and general surgery service for possible laparoscopic cholecystectomy. He is scheduled to undergo MRCP today per GI's recommendations. Patient was placed on BiPAP for acute hypercapnic respiratory acidosis and his last ABG from this morning showed a pH of 7.29, CO2 58, PaO2 87, bicarb 26, sats 93% on BiPAP 18/5 with 40% FIO2. Chest x-ray from this morning showed underinflation and bibasilar airspace opacities which would represent atelectasis or airspace consolidation. He was started on IV steroids yesterday. When seen, patient remains on BiPAP. He states that he is feeling overall better compared to when he was admitted. He quit smoking 10 years ago. He denies any worsening shortness of breath, chest pain, cough, or any edema of lower extremities. He spiked a fever with a temperature of 101.2 last night. PAST MEDICAL HISTORY: Significant for COPD, diabetes mellitus. PAST SURGICAL HISTORY: Previous left ankle surgery. ALLERGIES: NO KNOWN DRUG ALLERGIES. CURRENT MEDICATIONS: Include Depakote, Lovenox, Pepcid, Solu-Medrol, Sondra-Colace. FAMILY HISTORY: Coronary artery disease runs in the family. SOCIAL HISTORY: Quit smoking 10 years ago. Occasional drinker. No illicit drug use. REVIEW OF SYSTEMS: As per HPI. Rest of the review of systems unremarkable. PHYSICAL EXAMINATION: GENERAL: A 62-year-old male, lying in bed, in mild respiratory distress. VITAL SIGNS: Temperature 101.2 last night, pulse of 115-120, respiratory rate 22, blood pressure 120/64, saturation 95%. HEENT: Atraumatic, normocephalic. Pupils equal, round, reactive to light and accommodation. Extraocular muscles intact. Conjunctivae pink. Nonicteric sclerae. Oral mucosa within normal. NECK: Supple. No JVD, adenopathy, or thyromegaly. Trachea in the midline. CARDIOVASCULAR: Tachycardic. Normal S1, S2. No murmurs, rubs, or gallops. PULMONARY: Bilateral equal air entry with a few coarse breath sounds. ABDOMEN: Distended. Tenderness in right and left upper quadrant with palpation. Positive bowel sounds. EXTREMITIES: No cyanosis, clubbing, or edema. NEUROLOGIC: No focal sensory deficit. LABORATORY DATA: Sodium 136, potassium 4.,2, chloride 105, BUN 26, creatinine 1.47, glucose 104, AST 178, ALT 236, total bilirubin 3.8, lipase 2740. WBC 17, hemoglobin 15.7, hematocrit 47, platelet count of 151. RADIOGRAPHIC STUDIES: Chest x-ray showed bibasilar airspace opacities which could represent atelectasis or airspace consolidation. CT abdomen and pelvis on 01/11 showed findings compatible with acute pancreatitis and nonobstructing bilateral renal stones. IMPRESSION: 1. Acute hypercapnic respiratory failure. 2. Chronic obstructive pulmonary disease exacerbation. 3. Obesity. 4. Acute pancreatitis. 5. Acute kidney injury. 6. Hyperbilirubinemia with elevated liver enzymes. 7. Leukocytosis. 8. Nonobstructing bilateral renal stones. 9. Diabetes mellitus. RECOMMENDATIONS: 1. Monitor neuro status closely and avoid any sedatives. 2. Continue with oxygen and maintain sats above 92%. 3. Bronchodilators. Will place on DuoNeb q.4 plus q.2 p.r.n. for shortness of breath and Symbicort 160/45 two puffs q.12. 4. Agree with IV steroids. He is currently on Solu-Medrol 60 mg IV q.6. 5. Continue with BiPAP and check ABG now. If there is any worsening in respiratory acidosis or clinical condition, will proceed with intubation and mechanical ventilation. 6. Monitor heart rate and blood pressure closely and maintain MAP greater than 65 mmHg. Lactic acid level 1.1 on 01/11. Continue with IV hydration. 7. Monitor renal function, I's and O's, and avoid nephrotoxins. IV fluids as stated above. 8. Keep n.p.o. Monitor LFTs and lipase level. He is scheduled for MRCP today. In addition, surgery is following for possible laparoscopic cholecystectomy. 9. Continue with PPIs for GI prophylaxis. 10. Check lipid panel. 11. Continue with antibiotics. He is currently on Zosyn. Monitor for signs of infection which include fever and WBC. Will panculture blood, sputum, and urinalysis with culture if indicated. 12. Place on sliding scale insulin with Accu-Cheks for glycemic control, as patient is on IV steroids. 13. Monitor CBC. 14. GI prophylaxis with Protonix and DVT prophylaxis with SCDs. In addition, he is on Lovenox 40 mg subcutaneously daily. 15. Further recommendations will be based on hospital course. MD JOHNSON Alatorre/LOTTIE , 09:08 AM , 09:38 AM
[2018-01-13] MEDS: DIVALPROEX DR 500 MG TABEC PO SCH ×2 (10:07→20:22)
[2018-01-13] MEDS: CITALOPRAM HYDROBROMIDE 40 MG TAB PO SCH (10:08)
[2018-01-13] MEDS: DOCUSATE SODIUM 50 MG/SENNA 8.6 MG TAB PO SCH ×2 (10:08→20:22)
[2018-01-13] MEDS: FAMOTIDINE 20 MG/2 ML VIAL IV PUSH SCH ×2 (10:09→20:22)
--- NOTE | 2018-01-13 10:26 | HHI.PR ---
cc: Ernesto Tinajero MD Subjective Subjective Notes "Am I do for pain medications now?" at bedside Objective Vitals/I&O Vital Signs Date Time Temp Pulse Resp B/P (MAP) Pulse Ox O2 Delivery O2 Flow Rate FiO2 01/13/18 10:19 96 40 01/13/18 06:00 120 01/13/18 04:00 98.8 22 120/64 (82) 01/11/18 13:26 Room Air 01/11/18 05:36 2.00 Labs Laboratory Tests Test 01/12/18 11:15 01/12/18 11:59 01/12/18 13:58 01/12/18 16:20 Blood Gas Puncture Site LT BRACHIAL LT RADIAL LT RADIAL Blood Gas Patient Temperature 98.6 98.6 98.6 Blood Gas HCO3 29 28 28 Blood Gas Base Excess 1.0 0.6 1.5 Blood Gas Oxygen Saturation 91 95 96 Arterial Blood pH 7.17 7.21 7.28 Arterial Blood Partial Pressure CO2 82 72 60 Arterial Blood Partial Pressure O2 79 128 140 Arterial Blood Oxygen Content 20.5 21.1 20.8 Arterial Blood Carboxyhemoglobin 1.9 1.5 1.3 Arterial Blood Methemoglobin 0.8 1.6 1.6 Blood Gas Hemoglobin 16.0 15.7 15.3 Oxygen Delivery Device SIMPLE MASK BiPAP BIPAP Blood Gas Liter Flow 6 Nasal Screen MRSA (PCR) MRSA NOT DETECTED Blood Gas Ventilator Setting [id number] IPAP 18/ EPAP 5 Blood Gas Inspired Oxygen 50 50 Test 01/12/18 19:04 01/13/18 05:28 01/13/18 09:30 Blood Gas Puncture Site RT RADIAL RT RADIAL RT RADIAL Blood Gas Patient Temperature 98.6 98.6 98.6 Blood Gas HCO3 26 26 27 Blood Gas Base Excess 0.8 0.5 0.9 Blood Gas Oxygen Saturation 96 93 94 Arterial Blood pH 7.32 7.29 7.30 Arterial Blood Partial Pressure CO2 52 58 56 Arterial Blood Partial Pressure O2 149 87 90 Arterial Blood Oxygen Content 20.5 19.3 18.6 Arterial Blood Carboxyhemoglobin 1.1 0.9 1.0 Arterial Blood Methemoglobin 1.5 1.5 1.7 Blood Gas Hemoglobin 15.0 14.7 14.1 Oxygen Delivery Device BIPAP BIPAP 18/5 BiPAP Blood Gas Ventilator Setting IPAP18/EPAP5 18/5/40% Blood Gas Inspired Oxygen 50 40 40 Date/Time Source Procedure Growth Status 01/11/18 14:40 Urine Clean Catch Urine Culture - Preliminary Yeast-Id To Follow Staph Sp Coagulase Negative Resulted Radiology Last 48 hours Impressions Abdomen/Pelvis CT 01/11/18 0305 Signed Impressions: Service Date/Time: Thursday, January 11, 2018 04:57 - CONCLUSION: 1. Abnormal pancreas diagnostic of acute pancreatitis. There is peripancreatic inflammation and a small volume of free fluid in the abdomen and pelvis. No pancreatic necrosis or pancreatitis associated complications are currently present. 2. Small stones are present within the gallbladder. There is no bile duct dilatation. 3. There are multiple bilateral renal lesions which are incompletely characterized on this study and could represent solid renal lesions or complex cysts. These should be further evaluation once the patient's condition permits. These ideally should be further evaluated with renal protocol MRI with and without intravenous contrast. 4. Nonacute findings include nonobstructing bilateral renal stones and moderate atherosclerotic disease. Mono Wesley MD Chest X-Ray 01/11/18 0000 Signed Impressions: Service Date/Time: Thursday, January 11, 2018 09:33 - CONCLUSION: No acute cardiopulmonary disease. Fabián Flores Jr., MD Cardiovascular: Regular Lungs: Clear Abdomen: Other (RUQ and LUQ tenderness with palpation; distended ) Extremities: Other (mild generalized edema ) A/P Assessment and Plan 62 year old male with gallstone pancreatitis -Continue to stabilize from respiratory standpoint---continues to require BiPAP -NPO -Monitor liver enzymes and lipase -Pain control -Suggest MRCP once more stable from respiratory standpoint -Will continue to follow for timing of laparoscopic cholecystectomy Attending Statement The exam, history, and the medical decision-making described in the above note were completed with the assistance of the mid-level provider. I reviewed and agree with the findings presented. I attest that I had a [id number] encounter with the patient on the same day, and personally performed and documented my assessment and findings in the medical record. patient with gallstone pancreatitis, slow improvement in pancreatitis, worsening pulmonary status abdomen minimal tenderness will follow Caty Pleitez/First Ken LARA Jan 13, 2018 10:26 Ernesto Tinajero MD Jan 18, 2018 23:37
[2018-01-13 11:09] LABS: AUTOMATED NEUTROPHIL # 12.8 TH/MM3 (1.8-7.7); BASOPHIL % 0.2 % (0.0-2.0); EOSINOPHIL % 0.2 % (0.0-4.0); HEMATOCRIT 40.4 % (39.0-51.0); HEMOGLOBIN 13.4 GM/DL (13.0-17.0); LYMPHOCYTE # 0.3 TH/MM3 (1.0-4.8); MEAN CELL VOLUME 84.7 FL (80.0-100.0); MEAN CORPUSCULAR HGB CONC 33.1 % (32.0-36.0); MEAN PLATELET VOLUME 8.5 FL (7.0-11.0); MONO % 4.3 % (0.0-8.0); MONOCYTE # 0.6 TH/MM3 (0-0.9); NEUT % 93.3 % (16.0-70.0); PLATELET COUNT 170 TH/MM3 (150-450); RED BLOOD COUNT 4.77 MIL/MM3 (4.50-5.90); RED CELL DISTRIBUTION WIDTH 16.5 % (11.6-17.2); WHITE BLOOD COUNT 13.7 TH/MM3 (4.0-11.0)
[2018-01-13] MEDS: RESP: ALBUTEROL 2.5 MG/IPRATROPIUM 0.5 MG NEB (SCH) NEB ×3 (12:00→20:32)
[2018-01-13 12:17] LABS: ALBUMIN 2.6 GM/DL (3.4-5.0); BICARBONATE 29.3 MEQ/L (21.0-32.0); CALCIUM 7.4 MG/DL (8.5-10.1); CALCIUM-PROTEIN CORRECTED 7.6 MG/DL (8.5-10.1); CREATININE 1.84 MG/DL (0.60-1.30); MAGNESIUM 2.2 MG/DL (1.5-2.5); PHOSPHORUS 2.5 MG/DL (2.5-4.9); TOTAL BILIRUBIN ADULT 1.3 MG/DL (0.2-1.0); TOTAL PROTEIN 6.8 GM/DL (6.4-8.2)
[2018-01-13] MEDS: SODIUM CHLORIDE 0.9% FLUSH 10 ML FLUSH IV FLUSH PRN (12:18)
[2018-01-13] MEDS: ENOXAPARIN SODIUM 40 MG/0.4 ML SYRINGE SQ SCH (12:20)
[2018-01-13 12:24] LABS: CHOLESTEROL/ HDL RATIO 5.05 RATIO; HDL CHOLESTEROL 27.5 MG/DL (40.0-60.0)
[2018-01-13] MEDS: SODIUM CHLOR 0.9% 1000 ML INJ 1,000 ML IV SCH (13:23)
--- NOTE | 2018-01-13 16:01 | HHI.GIFU ---
Subjective Remarks Pt sitting up, on BiPAP Reports some abdominal pain Per RN was having nausea earlier Has not had BM Pt reports no BM since Thursday night (Maryuri Garza) Objective Vitals I&O Vital Signs Date Time Temp Pulse Resp B/P (MAP) Pulse Ox O2 Delivery O2 Flow Rate FiO2 01/13/18 10:19 96 40 01/13/18 06:00 120 01/13/18 04:21 95 40 01/13/18 04:00 98.8 121 22 120/64 (82) 95 01/13/18 01:12 98 50 01/13/18 00:00 99.0 115 17 156/82 (106) 99 01/12/18 22:15 98 50 01/12/18 20:30 99.6 01/12/18 20:10 100 50 01/12/18 20:00 101.2 121 21 158/92 (114) 98 01/12/18 18:00 120 01/12/18 17:11 98 50 01/12/18 17:00 119 01/12/18 16:00 98.7 121 14 153/84 (107) 96 01/12/18 16:00 121 I/O 01/12/18 01/12/18 01/12/18 01/13/18 01/13/18 01/13/18 07:00 15:00 23:00 07:00 15:00 23:00 Intake Total 700 ml Output Total 780 ml 600 ml 550 ml Balance -780 ml 100 ml -550 ml Intake Oral 600 ml IV Total 100 ml Output Urine Total 780 ml 600 ml 550 ml Laboratory Laboratory Tests Test 01/12/18 16:20 01/12/18 19:04 01/13/18 05:28 01/13/18 09:30 Blood Gas Puncture Site LT RADIAL RT RADIAL RT RADIAL RT RADIAL Blood Gas Patient Temperature 98.6 98.6 98.6 98.6 Blood Gas HCO3 28 26 26 27 Blood Gas Base Excess 1.5 0.8 0.5 0.9 Blood Gas Oxygen Saturation 96 96 93 94 Arterial Blood pH 7.28 7.32 7.29 7.30 Arterial Blood Partial Pressure CO2 60 52 58 56 Arterial Blood Partial Pressure O2 140 149 87 90 Arterial Blood Oxygen Content 20.8 20.5 19.3 18.6 Arterial Blood Carboxyhemoglobin 1.3 1.1 0.9 1.0 Arterial Blood Methemoglobin 1.6 1.5 1.5 1.7 Blood Gas Hemoglobin 15.3 15.0 14.7 14.1 Oxygen Delivery Device BIPAP BIPAP BIPAP 18/5 BiPAP Blood Gas Ventilator Setting IPAP 18/ EPAP 5 IPAP18/EPAP5 18/5/40% Blood Gas Inspired Oxygen 50 50 40 40 Test 01/13/18 10:45 01/13/18 10:56 Blood Urea Nitrogen 43 Creatinine 1.84 Random Glucose 168 Total Protein 6.8 Albumin 2.6 Calcium Level 7.4 Phosphorus Level 2.5 Magnesium Level 2.2 Alkaline Phosphatase 71 Aspartate Amino Transf (AST/SGOT) 74 Alanine Aminotransferase (ALT/SGPT) 115 Total Bilirubin 1.3 Sodium Level 139 Potassium Level 3.7 Chloride Level 102 Carbon Dioxide Level 29.3 Anion Gap 8 Estimat Glomerular Filtration Rate 38 Protein Corrected Calcium 7.6 Triglycerides Level 150 Cholesterol Level 139 LDL Cholesterol 82 HDL Cholesterol 27.5 Cholesterol/HDL Ratio 5.05 Lipase 498 White Blood Count 13.7 Red Blood Count 4.77 Hemoglobin 13.4 Hematocrit 40.4 Mean Corpuscular Volume 84.7 Mean Corpuscular Hemoglobin 28.0 Mean Corpuscular Hemoglobin Concent 33.1 Red Cell Distribution Width 16.5 Platelet Count 170 Mean Platelet Volume 8.5 Neutrophils (%) (Auto) 93.3 Lymphocytes (%) (Auto) 2.0 Monocytes (%) (Auto) 4.3 Eosinophils (%) (Auto) 0.2 Basophils (%) (Auto) 0.2 Neutrophils # (Auto) 12.8 Lymphocytes # (Auto) 0.3 Monocytes # (Auto) 0.6 Eosinophils # (Auto) 0.0 Basophils # (Auto) 0.0 CBC Comment DIFF FINAL Differential Comment Date/Time Source Procedure Growth Status 01/13/18 10:56 Blood Peripheral Aerobic Blood Culture Pending Received 01/13/18 10:56 Blood Peripheral Anaerobic Blood Culture Pending Received 01/11/18 14:40 Urine Clean Catch Urine Culture - Preliminary Yeast-Id To Follow Staph Sp Coagulase Negative Resulted Imaging Last Impressions Chest X-Ray 01/13/18 0000 Signed Impressions: Service Date/Time: Saturday, January 13, 2018 06:40 - CONCLUSION: Stable chest x-ray with marked underinflation and bibasilar airspace opacities which could represent atelectasis or airspace consolidation. Mono Wesley MD Abdomen/Pelvis CT 01/11/18 0305 Signed Impressions: Service Date/Time: Thursday, January 11, 2018 04:57 - CONCLUSION: 1. Abnormal pancreas diagnostic of acute pancreatitis. There is peripancreatic inflammation and a small volume of free fluid in the abdomen and pelvis. No pancreatic necrosis or pancreatitis associated complications are currently present. 2. Small stones are present within the gallbladder. There is no bile duct dilatation. 3. There are multiple bilateral renal lesions which are incompletely characterized on this study and could represent solid renal lesions or complex cysts. These should be further evaluation once the patient's condition permits. These ideally should be further evaluated with renal protocol MRI with and without intravenous contrast. 4. Nonacute findings include nonobstructing bilateral renal stones and moderate atherosclerotic disease. oMno Wesley MD Physical Exam HEENT: Normocephalic; atraumatic CHEST: Tachypneic. BiPAP. CARDIAC: Sinus tachycardia ABDOMEN: Distended, semi-firm, mild diffuse tenderness, bowel sounds active SKIN: Normal; no rash; no jaundice. COMMUNITY PHARMACIST: Alert and oriented x 3 (Maryuri Garza) Assessment and Plan Plan ASSESSMENT - epigastric pain, n/v, elevated LFTs- pancreatitis, could have had gallstone that passed. lipase > 20,000. LFTs are elevated in obstructive pattern but CT showed no ductal dilatation. - leukocytosis - WBC 20k 2/2 above (01/12) Pt was Halicat today for respiratory distress, now on BiPAP. Now in [facility]. Reports of a-flutter on floor now S/P Cardizem bolus and he is now sinus tachycardia. Transaminitis- LFTs trending down. AST-178 ALT-236 T bili-3.8 Alk phos-86. Hepatitis panel pending. Pancreatitis- ? Secondary to gallstone. Lipase trending down -2740. Pt was unable to have MRCP done yet, due to respiratory issues and transfer, exam pending. ? ERCP depending on results, however, pt will need to be more stable for this. GS consult appreciated- they discussed possibility of cholecystectomy, this was prior to pts change in status. Leukocytosis- some improvement. Afebrile. On Zosyn. (01/13) --> Pt remains in IMC, on BiPAP, reports of nausea earlier. Pt complaining of abdominal distention, no BM since Thursday night. He states abdominal pain, can not localize it to one area. LFTs continue to improved. Hepatitis panel negative. MRCP still pending given respiratory status. Leukocytosis trending down. Fever documented last night at 101.2. Remains on Zosyn. PLAN - KUB - MRCP - Monitor LFTs - Continue Zosyn - Further recommendations to be determined by clinical course and results of above Pt has been seen and examined by myself and Dr. Mc and this note is written on his behalf (Maryuri Garza) Physician Comments Agree with above assessment and plan. Stone likely passed and MRCP not a priority with his respiratory status. Will follow up with you. (Ja Mc MD) Maryuri Garza Jan 13, 2018 16:01 Ja Mc MD Jan 14, 2018 09:29
--- NOTE | 2018-01-13 16:43 | RADRPT ---
EXAM DATE/TIME: 01/13/2018 16:10 [facility] COMPARISON: No previous studies available for comparison. INDICATIONS : Abdominal distention. MEDICAL HISTORY : Chronic obstructive pulmonary disease. Gastroesophageal reflux disease. diabetes SURGICAL HISTORY : None. ENCOUNTER: Initial ACUITY: 2 days PAIN SCORE: 5/10 LOCATION: Bilateral abdomen FINDINGS: 2 portable supine views of the abdomen are limited by the portable nature of the acquisition in conju nction with the patient's body habitus. Gas is seen within a nondilated stomach. No gas filled dilate d loops of bowel appreciated. Gas and stool is seen to the level of the rectal vault. No organomegaly observed. Renal contours are not well valuated. A scoliotic curvature to a degenerative spine. Clear lung bases. CONCLUSION: Limited study with normal bowel gas pattern. Fabián Flores Jr., MD on January 13, 2018 at 16:40 Board Certified Radiologist. This report was verified electronically.
[2018-01-13] MEDS: INSULIN NovoLIN REGULAR SUPPLEMENTAL SCALE SQ SCH ×2 (18:00→23:19)
[2018-01-13] MEDS: MORPHINE SULFATE 2 MG/ML INJ IV PUSH PRN (20:24)
[2018-01-13 22:00] LABS: AMORPHOUS SEDIMENT, URINE RARE; BACTERIA, URINE RARE /hpf; BILIRUBIN, URINE NEG (NEG); BLOOD, URINE MOD (NEG); GLUCOSE,URINE 70 mg/dL (NEG); KETONE, URINE 10 mg/dL (NEG); NITRITE,URINE NEG (NEG); SQUAMOUS EPITHELIAL CELL URINE <1 /hpf (0-5); URINE COLOR YELLOW (YELLW/STRAW); URINE LEUKOCYTE ESTERASE NEG (NEG)
[2018-01-14] VITALS (24 sets, daily range): BP systolic 116–192; BP diastolic 55–103; PULSE 82–110; RESP 16–41; TEMP 98.5–100.2; O2SAT 90–98
[2018-01-14] MEDS: RESP: ALBUTEROL 2.5 MG/IPRATROPIUM 0.5 MG NEB (SCH) NEB ×7 (01:06→23:47)
[2018-01-14] MEDS: PIPERACIL-TAZO 4.5 GM PREMIX 100 ML IV SCH ×4 (01:50→19:50)
[2018-01-14] MEDS: MORPHINE SULFATE 4 MG/ML INJ IV PUSH PRN ×3 (01:51→23:00)
[2018-01-14] MEDS: SODIUM CHLOR 0.9% 1000 ML INJ 1,000 ML IV SCH ×3 (03:19→22:10)
[2018-01-14] MEDS: CHLORHEXIDINE GLUCONATE 2 % 1 PACK (2 CLOTHS)(taper/protocol) TOPICAL SCH (04:00)
[2018-01-14] MEDS: methylPREDNISolone SOD SUCC 125 MG/2 ML VIAL IV PUSH SCH ×4 (04:18→23:42)
[2018-01-14] MEDS: INSULIN NovoLIN REGULAR SUPPLEMENTAL SCALE SQ SCH ×4 (04:19→23:59)
[2018-01-14] MEDS: ONDANSETRON HCL 4 MG/2 ML VIAL IVP PRN ×3 (04:46→19:40)
[2018-01-14] MEDS: HYDROmorphone HCL PF 2 MG/ML VIAL IV PUSH PRN ×5 (04:46→23:42)
[2018-01-14 05:27] LABS: AUTOMATED NEUTROPHIL # 12.1 TH/MM3 (1.8-7.7); BASOPHIL % 0.1 % (0.0-2.0); HEMATOCRIT 37.8 % (39.0-51.0); HEMOGLOBIN 12.4 GM/DL (13.0-17.0); LYMPHOCYTE # 0.3 TH/MM3 (1.0-4.8); MEAN CELL VOLUME 84.6 FL (80.0-100.0); MEAN CORPUSCULAR HEMOGLOBIN 27.7 PG (27.0-34.0); MEAN CORPUSCULAR HGB CONC 32.7 % (32.0-36.0); MEAN PLATELET VOLUME 8.8 FL (7.0-11.0); MONO % 6.1 % (0.0-8.0); MONOCYTE # 0.8 TH/MM3 (0-0.9); NEUT % 91.8 % (16.0-70.0); PLATELET COUNT 187 TH/MM3 (150-450); RED BLOOD COUNT 4.47 MIL/MM3 (4.50-5.90); RED CELL DISTRIBUTION WIDTH 16.5 % (11.6-17.2); WHITE BLOOD COUNT 13.2 TH/MM3 (4.0-11.0)
[2018-01-14 05:49] LABS: ALBUMIN 2.6 GM/DL (3.4-5.0); AST (GOT) 54 U/L (15-37); BICARBONATE 27.2 MEQ/L (21.0-32.0); BLOOD UREA NITROGEN 49 MG/DL (7-18); CALCIUM 7.6 MG/DL (8.5-10.1); CHLORIDE 99 MEQ/L (98-107); CREATININE 1.96 MG/DL (0.60-1.30); GLOMERULAR FILTRATION RATE 35 ML/MIN (>89); GLUCOSE,RANDOM 198 MG/DL (74-106); SODIUM (NA) 136 MEQ/L (136-145)
[2018-01-14 05:51] LABS: ALT (GPT) 90 U/L (12-78)
[2018-01-14 05:52] LABS: ALKALINE PHOSPHATASE 69 U/L (45-117); TOTAL BILIRUBIN ADULT 1.1 MG/DL (0.2-1.0); TOTAL PROTEIN 6.9 GM/DL (6.4-8.2)
--- NOTE | 2018-01-14 07:42 | HHI.CCPN ---
Subjective Remarks/Hospital Course Patient is a 62-year-old male with past medical history of COPD, on 2 L home oxygen nocturnally, diabetes mellitus type 2, renal stones who was admitted to [facility] on 01/11 under hospitalist service for acute pancreatitis. He had a CT scan of the abdomen and pelvis which showed findings compatible with acute pancreatitis. There was no evidence of any pancreatic necrosis. Small stones present within the gallbladder. No bile duct dilatation seen. In addition, the patient has nonobstructing bilateral renal stones. He has been seen by GI and general surgery service for possible laparoscopic cholecystectomy. He is scheduled to undergo MRCP today per GI's recommendations. Patient was placed on BiPAP for acute hypercapnic respiratory acidosis and his last ABG from this morning showed a pH of 7.29, CO2 58, PaO2 87 , bicarb 26, sats 93% on BiPAP 18/5 with 40% FIO2. Chest x-ray from this morning showed underinflation and bibasilar airspace opacities which would represent atelectasis or airspace consolidation. He was started on IV steroids yesterday. When seen, patient remains on BiPAP. He states that he isfeeling overall better compared to when he was admitted. He quit smoking 10 years ago. He denies any worsening shortness of breath, chest pain, cough, or any edema of lower extremities. He spiked a fever with a temperature of 101.2 last night. 01/13 Patient remains on BIPAP with 40% FIO2. Afebrile. Awake and alert. Lipase now is within normal range however renal function is declining with Cr: 1.96 from 1.84 Objective Vital Signs Date Time Temp Pulse Resp B/P (MAP) Pulse Ox O2 Delivery O2 Flow Rate FiO2 01/14/18 06:00 96 01/14/18 04:43 98 40 01/14/18 04:00 98.9 16 163/98 (119) 01/11/18 13:26 Room Air 01/11/18 05:36 2.00 Intake and Output 01/14/18 01/14/18 01/15/18 08:00 16:00 00:00 Intake Total 1274 ml Output Total 1100 ml Balance 174 ml Result Diagram: 01/14/18 0415 01/14/18 0415 Other Results Laboratory Tests Test 01/13/18 09:30 01/13/18 10:45 01/13/18 10:56 01/13/18 17:15 Blood Gas Puncture Site RT RADIAL Blood Gas Patient Temperature 98.6 Blood Gas HCO3 27 mmol/L Blood Gas Base Excess 0.9 mmol/L Blood Gas Oxygen Saturation 94 % Arterial Blood pH 7.30 Arterial Blood Partial Pressure CO2 56 mmHg Arterial Blood Partial Pressure O2 90 mmHg Arterial Blood Oxygen Content 18.6 Vol % Arterial Blood Carboxyhemoglobin 1.0 % Arterial Blood Methemoglobin 1.7 % Blood Gas Hemoglobin 14.1 G/DL Oxygen Delivery Device BiPAP Blood Gas Ventilator Setting 18/5/40% Blood Gas Inspired Oxygen 40 % Blood Urea Nitrogen 43 MG/DL Creatinine 1.84 MG/DL Random Glucose 168 MG/DL Total Protein 6.8 GM/DL Albumin 2.6 GM/DL Calcium Level 7.4 MG/DL Phosphorus Level 2.5 MG/DL Magnesium Level 2.2 MG/DL Alkaline Phosphatase 71 U/L Aspartate Amino Transf (AST/SGOT) 74 U/L Alanine Aminotransferase (ALT/SGPT) 115 U/L Total Bilirubin 1.3 MG/DL Sodium Level 139 MEQ/L Potassium Level 3.7 MEQ/L Chloride Level 102 MEQ/L Carbon Dioxide Level 29.3 MEQ/L Anion Gap 8 MEQ/L Estimat Glomerular Filtration Rate 38 ML/MIN Protein Corrected Calcium 7.6 MG/DL Triglycerides Level 150 MG/DL Cholesterol Level 139 MG/DL LDL Cholesterol 82 MG/DL HDL Cholesterol 27.5 MG/DL Cholesterol/HDL Ratio 5.05 RATIO Lipase 498 U/L White Blood Count 13.7 TH/MM3 Red Blood Count 4.77 MIL/MM3 Hemoglobin 13.4 GM/DL Hematocrit 40.4 % Mean Corpuscular Volume 84.7 FL Mean Corpuscular Hemoglobin 28.0 PG Mean Corpuscular Hemoglobin Concent 33.1 % Red Cell Distribution Width 16.5 % Platelet Count 170 TH/MM3 Mean Platelet Volume 8.5 FL Neutrophils (%) (Auto) 93.3 % Lymphocytes (%) (Auto) 2.0 % Monocytes (%) (Auto) 4.3 % Eosinophils (%) (Auto) 0.2 % Basophils (%) (Auto) 0.2 % Neutrophils # (Auto) 12.8 TH/MM3 Lymphocytes # (Auto) 0.3 TH/MM3 Monocytes # (Auto) 0.6 TH/MM3 Eosinophils # (Auto) 0.0 TH/MM3 Basophils # (Auto) 0.0 TH/MM3 CBC Comment DIFF FINAL Differential Comment Urine Color YELLOW Urine Turbidity HAZY Urine pH 6.0 Urine Specific [place] 1.019 Urine Protein 30 mg/dL Urine Glucose (UA) 70 mg/dL Urine Ketones 10 mg/dL Urine Occult Blood MOD Urine Nitrite NEG Urine Bilirubin NEG Urine Urobilinogen LESS THAN 2.0 MG/DL Urine Leukocyte Esterase NEG Urine RBC 3 /hpf Urine WBC 2 /hpf Urine Squamous Epithelial Cells <1 /hpf Urine Amorphous Sediment RARE Urine Bacteria RARE /hpf Microscopic Urinalysis Comment CATH-CULTURE IND Test 01/14/18 04:15 White Blood Count 13.2 TH/MM3 Red Blood Count 4.47 MIL/MM3 Hemoglobin 12.4 GM/DL Hematocrit 37.8 % Mean Corpuscular Volume 84.6 FL Mean Corpuscular Hemoglobin 27.7 PG Mean Corpuscular Hemoglobin Concent 32.7 % Red Cell Distribution Width 16.5 % Platelet Count 187 TH/MM3 Mean Platelet Volume 8.8 FL Neutrophils (%) (Auto) 91.8 % Lymphocytes (%) (Auto) 2.0 % Monocytes (%) (Auto) 6.1 % Eosinophils (%) (Auto) 0.0 % Basophils (%) (Auto) 0.1 % Neutrophils # (Auto) 12.1 TH/MM3 Lymphocytes # (Auto) 0.3 TH/MM3 Monocytes # (Auto) 0.8 TH/MM3 Eosinophils # (Auto) 0.0 TH/MM3 Basophils # (Auto) 0.0 TH/MM3 CBC Comment DIFF FINAL Differential Comment Blood Urea Nitrogen 49 MG/DL Creatinine 1.96 MG/DL Random Glucose 198 MG/DL Total Protein 6.9 GM/DL Albumin 2.6 GM/DL Calcium Level 7.6 MG/DL Alkaline Phosphatase 69 U/L Aspartate Amino Transf (AST/SGOT) 54 U/L Alanine Aminotransferase (ALT/SGPT) 90 U/L Total Bilirubin 1.1 MG/DL Sodium Level 136 MEQ/L Potassium Level 3.6 MEQ/L Chloride Level 99 MEQ/L Carbon Dioxide Level 27.2 MEQ/L Anion Gap 10 MEQ/L Estimat Glomerular Filtration Rate 35 ML/MIN Lipase 179 U/L Imaging Last Impressions Chest X-Ray 01/13/18 0000 Signed Impressions: Service Date/Time: Saturday, January 13, 2018 06:40 - CONCLUSION: Stable chest x-ray with marked underinflation and bibasilar airspace opacities which could represent atelectasis or airspace consolidation. Mono Wesley MD Abdomen X-Ray 01/13/18 0000 Signed Impressions: Service Date/Time: Saturday, January 13, 2018 16:10 - CONCLUSION: Limited study with normal bowel gas pattern. Fabián Flores Jr., MD Abdomen/Pelvis CT 01/11/18 0305 Signed Impressions: Service Date/Time: Thursday, January 11, 2018 04:57 - CONCLUSION: 1. Abnormal pancreas diagnostic of acute pancreatitis. There is peripancreatic inflammation and a small volume of free fluid in the abdomen and pelvis. No pancreatic necrosis or pancreatitis associated complications are currently present. 2. Small stones are present within the gallbladder. There is no bile duct dilatation. 3. There are multiple bilateral renal lesions which are incompletely characterized on this study and could represent solid renal lesions or complex cysts. These should be further evaluation once the patient's condition permits. These ideally should be further evaluated with renal protocol MRI with and without intravenous contrast. 4. Nonacute findings include nonobstructing bilateral renal stones and moderate atherosclerotic disease. Mono Wesley MD Objective Remarks GENERAL: Patient is 62 yo lying in bed on BIPAP SKIN: Warm and dry. HEAD: Normocephalic. EYES: No scleral icterus. No injection or drainage. NECK: Supple, trachea midline. No JVD or lymphadenopathy. CARDIOVASCULAR: Regular rate and rhythm without murmurs, gallops, or rubs. RESPIRATORY: Breath sounds equal bilaterally. No accessory muscle use. GASTROINTESTINAL: Abdomen soft, non-tender, nondistended. MUSCULOSKELETAL: No cyanosis, or edema. Neuro: Awake and alert A/P Assessment and Plan 1. Acute hypercapnic respiratory failure. 2. Chronic obstructive pulmonary disease exacerbation. 3. Obesity. 4. Acute pancreatitis. 5. Acute kidney injury. 6. Hyperbilirubinemia with elevated liver enzymes. 7. Leukocytosis. 8. Nonobstructing bilateral renal stones. 9. Diabetes mellitus. Plan Neuro: Monitor neuro status and avoid any sedatives. On Depakote 500mg PO BID, check Depakote level. Pulm: Continue with oxygen and maintain sats > 92%. Bronchodilators( DuoNeb, Symbicort) on Solu-Medrol 60 mg IV q.6. Continue with BIPAP. Check ABG CV: Monitor HR and BP and maintain MAP> 65 mmHg. Lactic acid level 1.1 on . Continue with IVF : Monitor renal function, I's and O's, and avoid nephrotoxins. Increase NS 125ml/hr. Cr: 1.96 from 1.84, UOP: 2600ml on [address] abd/pelvis 01/11: No hydronephrosis GI:Keep n.p.o. Monitor LFTs , Lipase level is now within normal GI and Surgery are following. On PPIs for GI prophylaxis. For MRCP per GI ID: Continue Zosyn. Monitor for signs of infection( fever and WBC). Follow up on Blood and urine x from 01/13 Strep pneumonia and Legionella urinary Ag pending urine cx 01/11: yeast, coag negative staph Endo: SSI with Accu-Cheks for glycemic control, GI prophylaxis with Protonix and DVT prophylaxis with SCDs/Lovenox 40 mg daily. Level 2 Chandni Tello MD Jan 14, 2018 07:42
[2018-01-14] MEDS: BUDESONIDE-FORMOTEROL 160/4.5 MCG INHALER INH SCH ×2 (09:56→19:50)
[2018-01-14] MEDS: DIVALPROEX DR 500 MG TABEC PO SCH ×2 (09:56→19:51)
[2018-01-14] MEDS: DOCUSATE SODIUM 50 MG/SENNA 8.6 MG TAB PO SCH ×2 (09:56→19:52)
[2018-01-14] MEDS: FAMOTIDINE 20 MG/2 ML VIAL IV PUSH SCH ×2 (09:56→19:41)
[2018-01-14] MEDS: SODIUM CHLORIDE 0.9% FLUSH 10 ML FLUSH IV FLUSH SCH ×2 (09:57→19:53)
[2018-01-14] MEDS: CITALOPRAM HYDROBROMIDE 40 MG TAB PO SCH (09:57)
[2018-01-14] MEDS: ROFLUMILAST 500 MCG TAB PO SCH (09:57)
[2018-01-14] MEDS: ENOXAPARIN SODIUM 40 MG/0.4 ML SYRINGE SQ SCH (12:23)
--- NOTE | 2018-01-14 15:08 | HHI.GIFU ---
Subjective Remarks Pt resting in bed, now on NC with great improvement in respiratory status. Per RN he was reportedly nauseous earlier, Zofran not lasting long enough. Pt complaining of continued diffuse abdominal pain. Currently on clear liquid diet. (Maryuri Garza) Objective Vitals I&O Vital Signs Date Time Temp Pulse Resp B/P (MAP) Pulse Ox O2 Delivery O2 Flow Rate FiO2 01/14/18 14:00 93 01/14/18 13:51 16 01/14/18 13:00 94 01/14/18 12:00 100.2 82 41 129/83 (98) 94 01/14/18 12:00 82 01/14/18 11:00 94 01/14/18 11:00 94 30 143/86 (105) 93 01/14/18 10:26 22 01/14/18 10:01 95 21 145/103 (117) 93 01/14/18 10:00 95 01/14/18 09:00 98 22 175/97 (123) 91 01/14/18 09:00 98 01/14/18 08:01 99.3 101 25 167/102 (123) 98 01/14/18 08:00 101 01/14/18 07:01 107 18 192/95 (127) 01/14/18 07:00 107 01/14/18 06:00 96 01/14/18 04:43 98 40 01/14/18 04:00 98.9 94 16 163/98 (119) 96 01/14/18 04:00 94 01/14/18 02:00 110 01/14/18 00:00 104 01/14/18 00:00 98.9 104 16 166/99 (121) 96 01/13/18 22:00 104 01/13/18 20:33 97 40 01/13/18 20:00 98.4 114 30 155/96 (115) 94 01/13/18 20:00 113 01/13/18 18:00 117 24 155/95 (115) 95 01/13/18 18:00 117 01/13/18 17:00 114 01/13/18 17:00 114 23 151/105 (120) 95 01/13/18 16:08 98 40 01/13/18 16:00 111 01/13/18 16:00 111 18 160/103 (122) 94 I/O 01/13/18 01/13/18 01/13/18 01/14/18 01/14/18 01/14/18 07:00 15:00 23:00 07:00 15:00 23:00 Intake Total 100 ml 1274 ml Output Total 550 ml 1500 ml 1100 ml 650 ml Balance -550 ml -1400 ml 174 ml -650 ml IV Total 100 ml 1274 ml Output Urine Total 550 ml 1500 ml 1100 ml 650 ml # Bowel Movements 0 Laboratory Laboratory Tests Test 01/13/18 17:15 01/14/18 04:15 01/14/18 07:55 01/14/18 12:45 Urine Color YELLOW Urine Turbidity HAZY Urine pH 6.0 Urine Specific [place] 1.019 Urine Protein 30 Urine Glucose (UA) 70 Urine Ketones 10 Urine Occult Blood MOD Urine Nitrite NEG Urine Bilirubin NEG Urine Urobilinogen LESS THAN 2.0 Urine Leukocyte Esterase NEG Urine RBC 3 Urine WBC 2 Urine Squamous Epithelial Cells <1 Urine Amorphous Sediment RARE Urine Bacteria RARE Microscopic Urinalysis Comment CATH-CULTURE IND White Blood Count 13.2 Red Blood Count 4.47 Hemoglobin 12.4 Hematocrit 37.8 Mean Corpuscular Volume 84.6 Mean Corpuscular Hemoglobin 27.7 Mean Corpuscular Hemoglobin Concent 32.7 Red Cell Distribution Width 16.5 Platelet Count 187 Mean Platelet Volume 8.8 Neutrophils (%) (Auto) 91.8 Lymphocytes (%) (Auto) 2.0 Monocytes (%) (Auto) 6.1 Eosinophils (%) (Auto) 0.0 Basophils (%) (Auto) 0.1 Neutrophils # (Auto) 12.1 Lymphocytes # (Auto) 0.3 Monocytes # (Auto) 0.8 Eosinophils # (Auto) 0.0 Basophils # (Auto) 0.0 CBC Comment DIFF FINAL Differential Comment Blood Urea Nitrogen 49 Creatinine 1.96 Random Glucose 198 Total Protein 6.9 Albumin 2.6 Calcium Level 7.6 Alkaline Phosphatase 69 Aspartate Amino Transf (AST/SGOT) 54 Alanine Aminotransferase (ALT/SGPT) 90 Total Bilirubin 1.1 Sodium Level 136 Potassium Level 3.6 Chloride Level 99 Carbon Dioxide Level 27.2 Anion Gap 10 Estimat Glomerular Filtration Rate 35 Lipase 179 Blood Gas Puncture Site LT RADIAL Blood Gas Patient Temperature 98.6 Blood Gas HCO3 26 Blood Gas Base Excess 0.6 Blood Gas Oxygen Saturation 95 Arterial Blood pH 7.34 Arterial Blood Partial Pressure CO2 49 Arterial Blood Partial Pressure O2 106 Arterial Blood Oxygen Content 17.1 Arterial Blood Carboxyhemoglobin 0.9 Arterial Blood Methemoglobin 1.5 Blood Gas Hemoglobin 12.7 Oxygen Delivery Device CPAP 5EPAP/18IPAP Blood Gas Inspired Oxygen 40 Valproic Acid (Depakene) Level 44 Date/Time Source Procedure Growth Status 01/13/18 10:56 Blood Peripheral Aerobic Blood Culture - Preliminary NO GROWTH IN 1 DAY Resulted 01/13/18 10:56 Blood Peripheral Anaerobic Blood Culture - Preliminary NO GROWTH IN 1 DAY Resulted 01/13/18 17:15 Urine Catheterized Urine Urine Culture - Preliminary NO GROWTH IN 24 HOURS. Resulted Imaging Last Impressions Chest X-Ray 01/13/18 0000 Signed Impressions: Service Date/Time: Saturday, January 13, 2018 06:40 - CONCLUSION: Stable chest x-ray with marked underinflation and bibasilar airspace opacities which could represent atelectasis or airspace consolidation. Mono Wesley MD Abdomen X-Ray 01/13/18 0000 Signed Impressions: Service Date/Time: Saturday, January 13, 2018 16:10 - CONCLUSION: Limited study with normal bowel gas pattern. Fabián Flores Jr., MD Abdomen/Pelvis CT 01/11/18 0305 Signed Impressions: Service Date/Time: Thursday, January 11, 2018 04:57 - CONCLUSION: 1. Abnormal pancreas diagnostic of acute pancreatitis. There is peripancreatic inflammation and a small volume of free fluid in the abdomen and pelvis. No pancreatic necrosis or pancreatitis associated complications are currently present. 2. Small stones are present within the gallbladder. There is no bile duct dilatation. 3. There are multiple bilateral renal lesions which are incompletely characterized on this study and could represent solid renal lesions or complex cysts. These should be further evaluation once the patient's condition permits. These ideally should be further evaluated with renal protocol MRI with and without intravenous contrast. 4. Nonacute findings include nonobstructing bilateral renal stones and moderate atherosclerotic disease. Mono Wesley MD Physical Exam HEENT: Normocephalic; atraumatic CHEST: Even/unlabored- CARDIAC: Sinus tachycardia. O2 via NC ABDOMEN: Distended, semi-firm, mild diffuse tenderness, bowel sounds active SKIN: Normal; no rash; no jaundice. HEALTH INSURANCE ADJUSTER: Alert and oriented x 3 (Maryuri Garza ARTS ADMINISTRATOR OR MANAGER) Assessment and Plan Plan ASSESSMENT - epigastric pain, n/v, elevated LFTs- pancreatitis, could have had gallstone that passed. lipase > 20,000. LFTs are elevated in obstructive pattern but CT showed no ductal dilatation. - leukocytosis - WBC 20k 2/2 above (01/12) Pt was Halicat today for respiratory distress, now on BiPAP. Now in IMC. Reports of a-flutter on floor now S/P Cardizem bolus and he is now sinus tachycardia. Transaminitis- LFTs trending down. AST-178 ALT-236 T bili-3.8 Alk phos-86. Hepatitis panel pending. Pancreatitis- ? Secondary to gallstone. Lipase trending down -2740. Pt was unable to have MRCP done yet, due to respiratory issues and transfer, exam pending. ? ERCP depending on results, however, pt will need to be more stable for this. GS consult appreciated- they discussed possibility of cholecystectomy, this was prior to pts change in status. Leukocytosis- some improvement. Afebrile. On Zosyn. (01/13) --> Pt remains in IMC, on BiPAP, reports of nausea earlier. Pt complaining of abdominal distention, no BM since Thursday night. He states abdominal pain, can not localize it to one area. LFTs continue to improved. Hepatitis panel negative. MRCP still pending given respiratory status. Leukocytosis trending down. Fever documented last night at 101.2. Remains on Zosyn. (01/14) Pt with improved respiratory status today, switched to NC this morning and seems to be tolerating. Reports nausea, Zofran not lasting long enough. Also complaining of continued diffuse abdominal pain. KUB noted --> Limited study with normal bowel gas pattern. LFTs continue to improve. Drop in H/H noted, possibly dilutional, no obvious GIB. Leukocytosis, febrile this afternoon. MRCP pending. PLAN - MRCP - Monitor LFTs - Monitor CBC - Continue Zosyn - Reglan 5mg q 8hr PRN nausea - Clear liquid diet as tolerated - Further recommendations to be determined by clinical course and results of above Pt has been seen and examined by myself and Dr. Mc and this note is written on his behalf (Maryuri Garza) Physician Comments Stone likely already passed, respiratory status improving. Will follow up with you. (Ja Mc MD) Maryuri Garza Jan 14, 2018 15:08 Ja Mc MD Jan 15, 2018 06:20
--- NOTE | 2018-01-14 15:23 | HHI.PR ---
cc: Ernesto Tinajero MD Subjective Subjective Notes Off BiPAP Resting in bed Objective Vitals/I&O Vital Signs Date Time Temp Pulse Resp B/P (MAP) Pulse Ox O2 Delivery O2 Flow Rate FiO2 01/14/18 14:00 93 01/14/18 13:51 16 01/14/18 12:00 100.2 129/83 (98) 94 01/14/18 04:43 40 01/11/18 13:26 Room Air 01/11/18 05:36 2.00 Labs Laboratory Tests Test 01/13/18 17:15 01/14/18 04:15 01/14/18 07:55 01/14/18 12:45 Urine Color YELLOW Urine Turbidity HAZY Urine pH 6.0 Urine Specific [place] 1.019 Urine Protein 30 Urine Glucose (UA) 70 Urine Ketones 10 Urine Occult Blood MOD Urine Nitrite NEG Urine Bilirubin NEG Urine Urobilinogen LESS THAN 2.0 Urine Leukocyte Esterase NEG Urine RBC 3 Urine WBC 2 Urine Squamous Epithelial Cells <1 Urine Amorphous Sediment RARE Urine Bacteria RARE Microscopic Urinalysis Comment CATH-CULTURE IND White Blood Count 13.2 Red Blood Count 4.47 Hemoglobin 12.4 Hematocrit 37.8 Mean Corpuscular Volume 84.6 Mean Corpuscular Hemoglobin 27.7 Mean Corpuscular Hemoglobin Concent 32.7 Red Cell Distribution Width 16.5 Platelet Count 187 Mean Platelet Volume 8.8 Neutrophils (%) (Auto) 91.8 Lymphocytes (%) (Auto) 2.0 Monocytes (%) (Auto) 6.1 Eosinophils (%) (Auto) 0.0 Basophils (%) (Auto) 0.1 Neutrophils # (Auto) 12.1 Lymphocytes # (Auto) 0.3 Monocytes # (Auto) 0.8 Eosinophils # (Auto) 0.0 Basophils # (Auto) 0.0 CBC Comment DIFF FINAL Differential Comment Blood Urea Nitrogen 49 Creatinine 1.96 Random Glucose 198 Total Protein 6.9 Albumin 2.6 Calcium Level 7.6 Alkaline Phosphatase 69 Aspartate Amino Transf (AST/SGOT) 54 Alanine Aminotransferase (ALT/SGPT) 90 Total Bilirubin 1.1 Sodium Level 136 Potassium Level 3.6 Chloride Level 99 Carbon Dioxide Level 27.2 Anion Gap 10 Estimat Glomerular Filtration Rate 35 Lipase 179 Blood Gas Puncture Site LT RADIAL Blood Gas Patient Temperature 98.6 Blood Gas HCO3 26 Blood Gas Base Excess 0.6 Blood Gas Oxygen Saturation 95 Arterial Blood pH 7.34 Arterial Blood Partial Pressure CO2 49 Arterial Blood Partial Pressure O2 106 Arterial Blood Oxygen Content 17.1 Arterial Blood Carboxyhemoglobin 0.9 Arterial Blood Methemoglobin 1.5 Blood Gas Hemoglobin 12.7 Oxygen Delivery Device CPAP 5EPAP/18IPAP Blood Gas Inspired Oxygen 40 Valproic Acid (Depakene) Level 44 Date/Time Source Procedure Growth Status 01/13/18 10:56 Blood Peripheral Aerobic Blood Culture - Preliminary NO GROWTH IN 1 DAY Resulted 01/13/18 10:56 Blood Peripheral Anaerobic Blood Culture - Preliminary NO GROWTH IN 1 DAY Resulted 01/13/18 17:15 Urine Catheterized Urine Urine Culture - Preliminary NO GROWTH IN 24 HOURS. Resulted Radiology Last 48 hours Impressions Abdomen/Pelvis CT 01/11/18 0305 Signed Impressions: Service Date/Time: Thursday, January 11, 2018 04:57 - CONCLUSION: 1. Abnormal pancreas diagnostic of acute pancreatitis. There is peripancreatic inflammation and a small volume of free fluid in the abdomen and pelvis. No pancreatic necrosis or pancreatitis associated complications are currently present. 2. Small stones are present within the gallbladder. There is no bile duct dilatation. 3. There are multiple bilateral renal lesions which are incompletely characterized on this study and could represent solid renal lesions or complex cysts. These should be further evaluation once the patient's condition permits. These ideally should be further evaluated with renal protocol MRI with and without intravenous contrast. 4. Nonacute findings include nonobstructing bilateral renal stones and moderate atherosclerotic disease. Mono Wesley MD Chest X-Ray 01/11/18 0000 Signed Impressions: Service Date/Time: Thursday, January 11, 2018 09:33 - CONCLUSION: No acute cardiopulmonary disease. Fabián Flores Jr., MD Cardiovascular: Regular Lungs: Clear Abdomen: Other (RUQ and LUQ tenderness to palpation; distended ) Extremities: Other (moderate generalized edema ) A/P Assessment and Plan 62 year old male with gallstone pancreatitis -Continue to stabilize from respiratory standpoint---currently off BiPAP -NPO -Monitor liver enzymes and lipase---improved today -Pain control -Suggest MRCP once more stable from respiratory standpoint -Will continue to follow for timing of laparoscopic cholecystectomy ---likely next week sometime once pancreatitis cools off Attending Statement The exam, history, and the medical decision-making described in the above note were completed with the assistance of the mid-level provider. I reviewed and agree with the findings presented. I attest that I had a [id number] encounter with the patient on the same day, and personally performed and documented my assessment and findings in the medical record. patient with gallstone pancreatitis, pancreatitis seems better abdomen minimal tenderness continue problems with CHF/COPD, medical issues will follow Caty Pleitez/Guidance And Control System Engineer MARCO Jan 14, 2018 15:23 Ernesto Tinajero MD Jan 18, 2018 23:39
[2018-01-15] VITALS (16 sets, daily range): BP systolic 102–144; BP diastolic 56–71; PULSE 78–116; RESP 14–36; TEMP 98.4–99.4; O2SAT 81–98
[2018-01-15] MEDS: METOCLOPRAMIDE HCL 10 MG/2 ML VIAL IV PUSH PRN ×2 (02:00→15:29)
[2018-01-15] MEDS: PIPERACIL-TAZO 4.5 GM PREMIX 100 ML IV SCH ×4 (03:38→19:42)
[2018-01-15] MEDS: MORPHINE SULFATE 4 MG/ML INJ IV PUSH PRN ×4 (03:40→20:59)
[2018-01-15] MEDS: CHLORHEXIDINE GLUCONATE 2 % 1 PACK (2 CLOTHS)(taper/protocol) TOPICAL SCH (04:00)
[2018-01-15] MEDS: RESP: ALBUTEROL 2.5 MG/IPRATROPIUM 0.5 MG NEB (SCH) NEB ×6 (04:05→21:04)
[2018-01-15] MEDS: HYDROmorphone HCL PF 2 MG/ML VIAL IV PUSH PRN ×4 (04:39→19:43)
[2018-01-15] MEDS: INSULIN NovoLIN REGULAR SUPPLEMENTAL SCALE SQ SCH ×3 (06:06→17:06)
[2018-01-15] MEDS: methylPREDNISolone SOD SUCC 125 MG/2 ML VIAL IV PUSH SCH ×3 (06:06→17:05)
[2018-01-15 07:08] LABS: AUTOMATED NEUTROPHIL # 11.7 TH/MM3 (1.8-7.7); BASOPHIL % 0.2 % (0.0-2.0); HEMATOCRIT 34.6 % (39.0-51.0); HEMOGLOBIN 11.5 GM/DL (13.0-17.0); LYMPH % 1.8 % (9.0-44.0); LYMPHOCYTE # 0.2 TH/MM3 (1.0-4.8); MEAN CELL VOLUME 84.7 FL (80.0-100.0); MEAN CORPUSCULAR HEMOGLOBIN 28.1 PG (27.0-34.0); MEAN CORPUSCULAR HGB CONC 33.2 % (32.0-36.0); MEAN PLATELET VOLUME 8.9 FL (7.0-11.0); MONO % 9.7 % (0.0-8.0); MONOCYTE # 1.3 TH/MM3 (0-0.9); NEUT % 88.3 % (16.0-70.0); PLATELET COUNT 157 TH/MM3 (150-450); RED BLOOD COUNT 4.09 MIL/MM3 (4.50-5.90); RED CELL DISTRIBUTION WIDTH 16.4 % (11.6-17.2); WHITE BLOOD COUNT 13.3 TH/MM3 (4.0-11.0)
--- NOTE | 2018-01-15 07:23 | HHI.CCPN ---
Subjective Remarks/Hospital Course Patient is a 62-year-old male with past medical history of COPD, on 2 L home oxygen nocturnally, diabetes mellitus type 2, renal stones who was admitted to [facility] on 01/11 under hospitalist service for acute pancreatitis. He had a CT scan of the abdomen and pelvis which showed findings compatible with acute pancreatitis. There was no evidence of any pancreatic necrosis. Small stones present within the gallbladder. No bile duct dilatation seen. In addition, the patient has nonobstructing bilateral renal stones. He has been seen by GI and general surgery service for possible laparoscopic cholecystectomy. He is scheduled to undergo MRCP today per GI's recommendations. Patient was placed on BiPAP for acute hypercapnic respiratory acidosis and his last ABG from this morning showed a pH of 7.29, CO2 58, PaO2 87 , bicarb 26, sats 93% on BiPAP 18/5 with 40% FIO2. Chest x-ray from this morning showed underinflation and bibasilar airspace opacities which would represent atelectasis or airspace consolidation. He was started on IV steroids yesterday. When seen, patient remains on BiPAP. He states that he isfeeling overall better compared to when he was admitted. He quit smoking 10 years ago. He denies any worsening shortness of breath, chest pain, cough, or any edema of lower extremities. He spiked a fever with a temperature of 101.2 last night. 01/13 Patient remains on BIPAP with 40% FIO2. Afebrile. Awake and alert. Lipase now is within normal range however renal function is declining with Cr: 1.96 from 1.84 01/14 No events overnight. On BIPAP 18/5 with 40% FIO2. Tmax 100.2 yesterday Objective Vital Signs Date Time Temp Pulse Resp B/P (MAP) Pulse Ox O2 Delivery O2 Flow Rate FiO2 01/15/18 06:00 93 01/15/18 05:09 19 01/15/18 04:06 95 40 01/15/18 04:00 99.0 102/71 (81) 01/14/18 23:45 Nasal Cannula 4.00 Intake and Output 01/15/18 01/15/18 01/16/18 08:00 16:00 00:00 Intake Total 925 ml Output Total 900 ml Balance 25 ml Result Diagram: 01/15/18 0514 01/14/18 0415 Other Results Laboratory Tests Test 01/14/18 07:55 01/14/18 12:45 01/15/18 05:14 Blood Gas Puncture Site LT RADIAL Blood Gas Patient Temperature 98.6 Blood Gas HCO3 26 mmol/L Blood Gas Base Excess 0.6 mmol/L Blood Gas Oxygen Saturation 95 % Arterial Blood pH 7.34 Arterial Blood Partial Pressure CO2 49 mmHg Arterial Blood Partial Pressure O2 106 mmHg Arterial Blood Oxygen Content 17.1 Vol % Arterial Blood Carboxyhemoglobin 0.9 % Arterial Blood Methemoglobin 1.5 % Blood Gas Hemoglobin 12.7 G/DL Oxygen Delivery Device CPAP 5EPAP/18IPAP Blood Gas Inspired Oxygen 40 % Valproic Acid (Depakene) Level 44 MCG/ML White Blood Count 13.3 TH/MM3 Red Blood Count 4.09 MIL/MM3 Hemoglobin 11.5 GM/DL Hematocrit 34.6 % Mean Corpuscular Volume 84.7 FL Mean Corpuscular Hemoglobin 28.1 PG Mean Corpuscular Hemoglobin Concent 33.2 % Red Cell Distribution Width 16.4 % Platelet Count 157 TH/MM3 Mean Platelet Volume 8.9 FL Neutrophils (%) (Auto) 88.3 % Lymphocytes (%) (Auto) 1.8 % Monocytes (%) (Auto) 9.7 % Eosinophils (%) (Auto) 0.0 % Basophils (%) (Auto) 0.2 % Neutrophils # (Auto) 11.7 TH/MM3 Lymphocytes # (Auto) 0.2 TH/MM3 Monocytes # (Auto) 1.3 TH/MM3 Eosinophils # (Auto) 0.0 TH/MM3 Basophils # (Auto) 0.0 TH/MM3 CBC Comment DIFF FINAL Differential Comment Imaging Last Impressions Chest X-Ray 01/13/18 0000 Signed Impressions: Service Date/Time: Saturday, January 13, 2018 06:40 - CONCLUSION: Stable chest x-ray with marked underinflation and bibasilar airspace opacities which could represent atelectasis or airspace consolidation. Mono Wesley MD Abdomen X-Ray 01/13/18 0000 Signed Impressions: Service Date/Time: Saturday, January 13, 2018 16:10 - CONCLUSION: Limited study with normal bowel gas pattern. Fabián Flores Jr., MD Abdomen/Pelvis CT 01/11/18 0305 Signed Impressions: Service Date/Time: Thursday, January 11, 2018 04:57 - CONCLUSION: 1. Abnormal pancreas diagnostic of acute pancreatitis. There is peripancreatic inflammation and a small volume of free fluid in the abdomen and pelvis. No pancreatic necrosis or pancreatitis associated complications are currently present. 2. Small stones are present within the gallbladder. There is no bile duct dilatation. 3. There are multiple bilateral renal lesions which are incompletely characterized on this study and could represent solid renal lesions or complex cysts. These should be further evaluation once the patient's condition permits. These ideally should be further evaluated with renal protocol MRI with and without intravenous contrast. 4. Nonacute findings include nonobstructing bilateral renal stones and moderate atherosclerotic disease. Mono Wesley MD Objective Remarks GENERAL: Patient is 62 yo lying in bed on BIPAP SKIN: Warm and dry. HEAD: Normocephalic. EYES: No scleral icterus. No injection or drainage. NECK: Supple, trachea midline. No JVD or lymphadenopathy. CARDIOVASCULAR: Regular rate and rhythm without murmurs, gallops, or rubs. RESPIRATORY: Breath sounds equal bilaterally. No accessory muscle use. GASTROINTESTINAL: Abdomen soft, non-tender, nondistended. MUSCULOSKELETAL: No cyanosis, or edema. Neuro: Awake and alert A/P Assessment and Plan 1. Acute hypercapnic respiratory failure. 2. Chronic obstructive pulmonary disease exacerbation. 3. Obesity. 4. Acute pancreatitis. 5. Acute kidney injury. 6. Hyperbilirubinemia with elevated liver enzymes. 7. Leukocytosis. 8. Nonobstructing bilateral renal stones. 9. Diabetes mellitus. Plan Neuro: Monitor neuro status and avoid any sedatives. On Depakote 500mg PO BID, Depakote level:44 Pulm: Continue with oxygen and maintain sats > 92%. Bronchodilators( DuoNeb, Symbicort) on Solu-Medrol 60 mg IV q.6. Continue with BIPAP. CV: Monitor HR and BP and maintain MAP> 65 mmHg. Lactic acid level 1.1 on . Continue with IVF : Monitor renal function, I's and O's, and avoid nephrotoxins. Renal function is improving with Cr: 1.55 from 1.96, UOP: 2075ml in 24 hrs Decrease IVF NS@75mlr, Give KCL 40meq IV for K 3.2 CT abd/pelvis 01/11: No hydronephrosis GI Monitor LFTs( trending down), Lipase level is now within normal. On Clear liquid diet per GI GI and Surgery are following. On PPIs for GI prophylaxis. For MRCP per GI ID: Continue Zosyn. Monitor for signs of infection( fever and WBC). Follow up on Blood and urine x from 01/13- NGTD Strep pneumonia and Legionella urinary Ag negative urine cx 01/11: yeast, coag negative staph Endo: SSI with Accu-Cheks for glycemic control, GI prophylaxis with Protonix and DVT prophylaxis with SCDs/Lovenox 40 mg daily. Follow up on labs Level 2 Chandni Tello MD Jan 15, 2018 07:23
[2018-01-15 07:27] LABS: ALBUMIN 2.4 GM/DL (3.4-5.0); AST (GOT) 40 U/L (15-37); BICARBONATE 28.6 MEQ/L (21.0-32.0); BLOOD UREA NITROGEN 42 MG/DL (7-18); CALCIUM 7.5 MG/DL (8.5-10.1); CHLORIDE 104 MEQ/L (98-107); CREATININE 1.55 MG/DL (0.60-1.30); GLOMERULAR FILTRATION RATE 46 ML/MIN (>89); GLUCOSE,RANDOM 165 MG/DL (74-106); SODIUM (NA) 142 MEQ/L (136-145)
[2018-01-15 07:28] LABS: ALT (GPT) 64 U/L (12-78)
[2018-01-15 07:30] LABS: ALKALINE PHOSPHATASE 56 U/L (45-117); TOTAL BILIRUBIN ADULT 0.7 MG/DL (0.2-1.0); TOTAL PROTEIN 6.2 GM/DL (6.4-8.2)
[2018-01-15] MEDS ORDERED: POTASSIUM CHLOR 20 MEQ PREMIX 100 ML IV SCH (08:45)
[2018-01-15] MEDS: ONDANSETRON HCL 4 MG/2 ML VIAL IVP PRN ×2 (08:55→20:58)
[2018-01-15] MEDS: DOCUSATE SODIUM 50 MG/SENNA 8.6 MG TAB PO SCH ×2 (09:02→19:44)
[2018-01-15] MEDS: SODIUM CHLORIDE 0.9% FLUSH 10 ML FLUSH IV FLUSH SCH ×2 (09:02→19:44)
[2018-01-15] MEDS: DIVALPROEX DR 500 MG TABEC PO SCH ×2 (09:02→19:43)
[2018-01-15] MEDS: CITALOPRAM HYDROBROMIDE 40 MG TAB PO SCH (09:02)
[2018-01-15] MEDS: BUDESONIDE-FORMOTEROL 160/4.5 MCG INHALER INH SCH ×2 (09:04→19:47)
[2018-01-15] MEDS: FAMOTIDINE 20 MG/2 ML VIAL IV PUSH SCH ×2 (09:25→19:44)
[2018-01-15] MEDS: ROFLUMILAST 500 MCG TAB PO SCH (09:26)
[2018-01-15] MEDS: POTASSIUM CHLORIDE INJ 20 MEQ in SODIUM CHLORIDE 0.9% INJ 100 ML IV SCH ×2 (10:06→12:00)
--- NOTE | 2018-01-15 10:45 | HHI.PR ---
cc: Ernesto Tinajero MD Subjective Subjective Notes Daughters at bedside Uneventful night Objective Vitals/I&O Vital Signs Date Time Temp Pulse Resp B/P (MAP) Pulse Ox O2 Delivery O2 Flow Rate FiO2 01/15/18 06:00 93 01/15/18 05:09 19 01/15/18 04:06 95 40 01/15/18 04:00 99.0 102/71 (81) 01/15/18 02:30 Bi-Pap 01/15/18 00:00 6.00 Labs Laboratory Tests Test 01/14/18 12:45 01/15/18 05:14 Valproic Acid (Depakene) Level 44 White Blood Count 13.3 Red Blood Count 4.09 Hemoglobin 11.5 Hematocrit 34.6 Mean Corpuscular Volume 84.7 Mean Corpuscular Hemoglobin 28.1 Mean Corpuscular Hemoglobin Concent 33.2 Red Cell Distribution Width 16.4 Platelet Count 157 Mean Platelet Volume 8.9 Neutrophils (%) (Auto) 88.3 Lymphocytes (%) (Auto) 1.8 Monocytes (%) (Auto) 9.7 Eosinophils (%) (Auto) 0.0 Basophils (%) (Auto) 0.2 Neutrophils # (Auto) 11.7 Lymphocytes # (Auto) 0.2 Monocytes # (Auto) 1.3 Eosinophils # (Auto) 0.0 Basophils # (Auto) 0.0 CBC Comment DIFF FINAL Differential Comment Blood Urea Nitrogen 42 Creatinine 1.55 Random Glucose 165 Total Protein 6.2 Albumin 2.4 Calcium Level 7.5 Alkaline Phosphatase 56 Aspartate Amino Transf (AST/SGOT) 40 Alanine Aminotransferase (ALT/SGPT) 64 Total Bilirubin 0.7 Sodium Level 142 Potassium Level 3.2 Chloride Level 104 Carbon Dioxide Level 28.6 Anion Gap 9 Estimat Glomerular Filtration Rate 46 Date/Time Source Procedure Growth Status 01/13/18 10:56 Blood Peripheral Aerobic Blood Culture - Preliminary NO GROWTH IN 1 DAY Resulted 01/13/18 10:56 Blood Peripheral Anaerobic Blood Culture - Preliminary NO GROWTH IN 1 DAY Resulted 01/13/18 17:15 Urine Catheterized Urine Urine Culture - Preliminary NO GROWTH IN 24 HOURS. Resulted Radiology Last 48 hours Impressions Abdomen/Pelvis CT 01/11/18 0305 Signed Impressions: Service Date/Time: Thursday, January 11, 2018 04:57 - CONCLUSION: 1. Abnormal pancreas diagnostic of acute pancreatitis. There is peripancreatic inflammation and a small volume of free fluid in the abdomen and pelvis. No pancreatic necrosis or pancreatitis associated complications are currently present. 2. Small stones are present within the gallbladder. There is no bile duct dilatation. 3. There are multiple bilateral renal lesions which are incompletely characterized on this study and could represent solid renal lesions or complex cysts. These should be further evaluation once the patient's condition permits. These ideally should be further evaluated with renal protocol MRI with and without intravenous contrast. 4. Nonacute findings include nonobstructing bilateral renal stones and moderate atherosclerotic disease. Mono Wesley MD Chest X-Ray 01/11/18 0000 Signed Impressions: Service Date/Time: Thursday, January 11, 2018 09:33 - CONCLUSION: No acute cardiopulmonary disease. Fabián Flores Jr., MD Cardiovascular: Regular Lungs: Clear Abdomen: Other (distended; RUQ tenderness ) Extremities: No edema A/P Assessment and Plan 62 year old male with gallstone pancreatitis -Continue to stabilize from respiratory standpoint---currently off BiPAP -Monitor liver enzymes and lipase---continue to improve -Pain control -Suggest MRCP once more stable from respiratory standpoint -Will continue to follow for timing of laparoscopic cholecystectomy ---likely next week sometime once pancreatitis cools off ---discussed with daughters who agree with the plan Attending Statement The exam, history, and the medical decision-making described in the above note were completed with the assistance of the mid-level provider. I reviewed and agree with the findings presented. I attest that I had a [id number] encounter with the patient on the same day, and personally performed and documented my assessment and findings in the medical record. patient with gallstone pancreatitis, slow improvement in pancreatitis abdominal exam stable, non-surgical not a candidate for lap melba with decompensated medical disease will follow Caty Pleitez/[employer] DIRECT[employer] Jan 15, 2018 10:45 Ernesto Tinajero MD Jan 18, 2018 23:41
[2018-01-15] MEDS: ENOXAPARIN SODIUM 40 MG/0.4 ML SYRINGE SQ SCH (12:00)
[2018-01-15] MEDS: SODIUM CHLOR 0.9% 1000 ML INJ 1,000 ML IV SCH (16:22)
[2018-01-16] VITALS (18 sets, daily range): BP systolic 104–188; BP diastolic 53–98; PULSE 81–127; RESP 16–35; TEMP 98.2–99; O2SAT 85–99
[2018-01-16] MEDS: HYDROmorphone HCL PF 2 MG/ML VIAL IV PUSH PRN ×5 (00:25→20:30)
[2018-01-16] MEDS: methylPREDNISolone SOD SUCC 125 MG/2 ML VIAL IV PUSH SCH ×3 (00:25→10:18)
[2018-01-16] MEDS: RESP: ALBUTEROL 2.5 MG/IPRATROPIUM 0.5 MG NEB (SCH) NEB ×7 (01:52→23:43)
[2018-01-16] MEDS: ONDANSETRON HCL 4 MG/2 ML VIAL IVP PRN ×3 (02:02→14:23)
[2018-01-16] MEDS: PIPERACIL-TAZO 4.5 GM PREMIX 100 ML IV SCH ×4 (02:03→20:30)
[2018-01-16] MEDS: MORPHINE SULFATE 2 MG/ML INJ IV PUSH PRN (02:03)
[2018-01-16] MEDS: SODIUM CHLORIDE 0.9% FLUSH 10 ML FLUSH IV FLUSH PRN (02:03)
[2018-01-16] MEDS: MORPHINE SULFATE 4 MG/ML INJ IV PUSH PRN ×5 (03:56→21:24)
[2018-01-16] MEDS: CHLORHEXIDINE GLUCONATE 2 % 1 PACK (2 CLOTHS)(taper/protocol) TOPICAL SCH (04:00)
[2018-01-16] MEDS: SODIUM CHLOR 0.9% 1000 ML INJ 1,000 ML IV SCH ×2 (06:33→20:30)
[2018-01-16] MEDS: DIVALPROEX DR 500 MG TABEC PO SCH ×2 (08:51→20:31)
[2018-01-16] MEDS: CITALOPRAM HYDROBROMIDE 40 MG TAB PO SCH (08:51)
[2018-01-16] MEDS: SODIUM CHLORIDE 0.9% FLUSH 10 ML FLUSH IV FLUSH SCH ×2 (08:51→20:31)
[2018-01-16] MEDS: DOCUSATE SODIUM 50 MG/SENNA 8.6 MG TAB PO SCH ×2 (08:51→20:31)
[2018-01-16] MEDS: ROFLUMILAST 500 MCG TAB PO SCH (08:51)
[2018-01-16] MEDS: BUDESONIDE-FORMOTEROL 160/4.5 MCG INHALER INH SCH ×2 (09:00→21:23)
[2018-01-16] MEDS: FAMOTIDINE 20 MG/2 ML VIAL IV PUSH SCH ×2 (09:08→20:31)
[2018-01-16 09:14] LABS: HEMATOCRIT 36.4 % (39.0-51.0); HEMOGLOBIN 12.1 GM/DL (13.0-17.0); LYMPH % 1.3 % (9.0-44.0); LYMPHOCYTE # 0.2 TH/MM3 (1.0-4.8); MEAN CELL VOLUME 84.5 FL (80.0-100.0); MEAN CORPUSCULAR HEMOGLOBIN 28.2 PG (27.0-34.0); MEAN CORPUSCULAR HGB CONC 33.3 % (32.0-36.0); MEAN PLATELET VOLUME 8.8 FL (7.0-11.0); MONO % 7.6 % (0.0-8.0); MONOCYTE # 1.1 TH/MM3 (0-0.9); NEUT % 91.1 % (16.0-70.0); PLATELET COUNT 172 TH/MM3 (150-450); RED BLOOD COUNT 4.31 MIL/MM3 (4.50-5.90); RED CELL DISTRIBUTION WIDTH 16.8 % (11.6-17.2); WHITE BLOOD COUNT 14.3 TH/MM3 (4.0-11.0)
[2018-01-16 09:45] LABS: ALBUMIN 2.4 GM/DL (3.4-5.0); ALKALINE PHOSPHATASE 62 U/L (45-117); ALT (GPT) 75 U/L (12-78); AST (GOT) 49 U/L (15-37); BICARBONATE 31.8 MEQ/L (21.0-32.0); BLOOD UREA NITROGEN 38 MG/DL (7-18); CALCIUM 8.3 MG/DL (8.5-10.1); CHLORIDE 102 MEQ/L (98-107); CREATININE 1.54 MG/DL (0.60-1.30); GLOMERULAR FILTRATION RATE 46 ML/MIN (>89); GLUCOSE,RANDOM 144 MG/DL (74-106); SODIUM (NA) 141 MEQ/L (136-145); TOTAL BILIRUBIN ADULT 0.6 MG/DL (0.2-1.0); TOTAL PROTEIN 6.6 GM/DL (6.4-8.2)
--- NOTE | 2018-01-16 09:53 | HHI.CCPN ---
Subjective Remarks/Hospital Course Patient is a 62-year-old male with past medical history of COPD, on 2 L home oxygen nocturnally, diabetes mellitus type 2, renal stones who was admitted to [facility] on 01/11 under hospitalist service for acute pancreatitis. He had a CT scan of the abdomen and pelvis which showed findings compatible with acute pancreatitis. There was no evidence of any pancreatic necrosis. Small stones present within the gallbladder. No bile duct dilatation seen. In addition, the patient has nonobstructing bilateral renal stones. He has been seen by GI and general surgery service for possible laparoscopic cholecystectomy. He is scheduled to undergo MRCP today per GI's recommendations. Patient was placed on BiPAP for acute hypercapnic respiratory acidosis and his last ABG from this morning showed a pH of 7.29, CO2 58, PaO2 87 , bicarb 26, sats 93% on BiPAP 18/5 with 40% FIO2. Chest x-ray from this morning showed underinflation and bibasilar airspace opacities which would represent atelectasis or airspace consolidation. He was started on IV steroids yesterday. When seen, patient remains on BiPAP. He states that he isfeeling overall better compared to when he was admitted. He quit smoking 10 years ago. He denies any worsening shortness of breath, chest pain, cough, or any edema of lower extremities. He spiked a fever with a temperature of 101.2 last night. 01/14 Patient remains on BIPAP with 40% FIO2. Afebrile. Awake and alert. Lipase now is within normal range however renal function is declining with Cr: 1.96 from 1.84 01/15 No events overnight. On BIPAP 18/5 with 40% FIO2. Tmax 100.2 yesterday Subjective: 01/16 Was off Bipap part of yesterday but went back on around 3 pm and has remained on Bipap. He becomes agitated intermittently and appears to be having urinary retention with overflow incontinence. Placing Elliott. He removed Bipap and sats were 77% on RA. He is asking to eat, denies abd pain/n/v/ CP. No BM since 01/10. Daughter at bedside requesting something for his agitation. Objective Vital Signs Date Time Temp Pulse Resp B/P (MAP) Pulse Ox O2 Delivery O2 Flow Rate FiO2 01/16/18 08:55 18 01/16/18 06:00 87 01/16/18 04:57 99 35 01/16/18 04:00 98.2 106/54 (71) 01/15/18 21:05 BiPAP 01/15/18 00:00 6.00 Intake and Output 01/16/18 01/16/18 01/17/18 08:00 16:00 00:00 Intake Total 100 ml Balance 100 ml Result Diagram: 01/16/18 0829 01/16/18 0839 Other Results Microbiology Date/Time Source Procedure Growth Status 01/13/18 17:15 Urine Catheterized Urine Legionella Antigen - Final PRESUMPTIVE NEGATIVE FOR LEGIONELLA P... Complete 01/13/18 17:15 Urine Catheterized Urine Streptococcus pneumoniae Antigen (M - Final PRESUMPTIVE NEGATIVE FOR STREPTOCOCCU... Complete Imaging Last Impressions Chest X-Ray 01/13/18 0000 Signed Impressions: Service Date/Time: Saturday, January 13, 2018 06:40 - CONCLUSION: Stable chest x-ray with marked underinflation and bibasilar airspace opacities which could represent atelectasis or airspace consolidation. Mono Wesley MD Abdomen X-Ray 01/13/18 0000 Signed Impressions: Service Date/Time: Saturday, January 13, 2018 16:10 - CONCLUSION: Limited study with normal bowel gas pattern. Fabián Flores Jr., MD Abdomen/Pelvis CT 01/11/18 0305 Signed Impressions: Service Date/Time: Thursday, January 11, 2018 04:57 - CONCLUSION: 1. Abnormal pancreas diagnostic of acute pancreatitis. There is peripancreatic inflammation and a small volume of free fluid in the abdomen and pelvis. No pancreatic necrosis or pancreatitis associated complications are currently present. 2. Small stones are present within the gallbladder. There is no bile duct dilatation. 3. There are multiple bilateral renal lesions which are incompletely characterized on this study and could represent solid renal lesions or complex cysts. These should be further evaluation once the patient's condition permits. These ideally should be further evaluated with renal protocol MRI with and without intravenous contrast. 4. Nonacute findings include nonobstructing bilateral renal stones and moderate atherosclerotic disease. Mono Wesley MD Objective Remarks GENERAL: Patient is 62 yo lying in bed on BIPAP SKIN: Warm and dry. Port accessed L chest, no exudate. HEAD: Normocephalic. EYES: No scleral icterus. No injection or drainage. NECK: Supple, trachea midline. No JVD or lymphadenopathy. CARDIOVASCULAR: Regular rate and rhythm without murmurs, gallops, or rubs. RESPIRATORY: Breath sounds equal bilaterally, no w/r/r. On Bipap 18/6 with resp rate 22 while being repositioned in bed. GASTROINTESTINAL: Abdomen moribidly obese, soft, non-tender, nondistended. Bowel sounds present. : Urine bag overlying perineum. Patient adjusted position and had 900 urine output. MUSCULOSKELETAL: No cyanosis, or edema. NEURO: Awake and alert, oriented to person not to place or year. Moves all spontaneously without focal deficit. A/P Assessment and Plan 1. Acute hypercapnic respiratory failure. 2. Chronic obstructive pulmonary disease exacerbation. 3. Obesity. 4. Acute pancreatitis. 5. Acute kidney injury. 6. Hyperbilirubinemia with elevated liver enzymes. 7. Leukocytosis. 8. Nonobstructing bilateral renal stones. 9. Diabetes mellitus. Plan Neuro: Agitated delirium Continue Depakote 500mg PO BID, Depakote level:44 Continues Celexa 40 mg p.o. daily Seroquel 25 mg po qhs. Haldol 2.5 mg IV q4 hours prn agitation. Check EKG, monitor Qtc Pulm: Acute hypercapnic respiratory failure with chronic hypoxia COPD Continue with oxygen and maintain sats > 92%. Bronchodilators( DuoNeb q4, Symbicort 160/4.5 2 puffs inhaled every 12) Daliresp 500 mcg po daily Will taper Solu-Medrol as this may be contributing to delirium and he is not presently wheezing, 40 mg IV q12. Continue with BIPAP as needed, will try off bipap today. CV: Monitor HR and BP and maintain MAP> 65 mmHg. Lactic acid level 1.1 on . On 0.9 NaCl 75/hr : HAMMAD. Urinary retention Hypokalemia, resolved Baseline creatinine unknown. Insert Elliott. Monitor intake and output. CT abd/pelvis 01/11: No hydronephrosis GI Acute pancreatitis Cholelithiasis Obesity Constipation Monitor LFTs( trending down), Lipase level is now within normal. On Clear liquid diet per GI GI following. For MRCP when stable from respiratory standpoint. General surgery following regarding timing of laparoscopic cholecystectomy On Sondra-Colace 1 tab p.o. twice daily Dulcolax suppository 10 mg NE now. Lactulose 30 mL's p.o. bid x 2 doses. ID: Candiduria On Zosyn for gallstone pancreatitis 01/11 #6. Follow up on Blood and urine x from 01/13- NGTD Strep pneumonia and Legionella urinary Ag negative urine cx 01/11: Martha parapsilosis. , coag negative staph. Urine culture with peristent yeast 01/13 and patient with urinary symptoms so will treat with diflucan 200 po daily Endo: Lows SSI with Accu-Cheks q6 hours for glycemic control, Hold home medication metformin 500 mg p.o. daily GI prophylaxis with Protonix and DVT prophylaxis with SCDs/Lovenox 40 mg daily. ACCESS: Port accessed L chest Full code Discussed with patient's daughter who is at bedside. Level 3 Sita Fuentes MD Jan 16, 2018 09:53
[2018-01-16] MEDS ORDERED: BISACODYL 10 MG SUPP RECTAL ONE (11:15)
[2018-01-16] MEDS: HALOPERIDOL LACTATE 5 MG/ML AMP IV PUSH PRN ×2 (11:31→16:34)
[2018-01-16] MEDS: QUEtiapine FUMARATE 25 MG TAB PO SCH ×2 (11:51→20:31)
[2018-01-16] MEDS: FLUCONAZOLE 200 MG TAB PO SCH (11:51)
[2018-01-16] MEDS: methylPREDNISolone SOD SUCC 40 MG/1 ML VIAL IV PUSH SCH (11:52)
[2018-01-16] MEDS: LACTULOSE SYRUP 20 GM/30 ML CUP PO SCH ×2 (11:54→20:32)
[2018-01-16] MEDS: ENOXAPARIN SODIUM 40 MG/0.4 ML SYRINGE SQ SCH (11:54)
[2018-01-16] MEDS: INSULIN NovoLIN REGULAR SUPPLEMENTAL SCALE SQ SCH ×3 (12:00→18:00)
--- NOTE | 2018-01-16 13:39 | HHI.PR ---
Subjective Subjective Notes no acute events Objective Vitals/I&O Vital Signs Date Time Temp Pulse Resp B/P (MAP) Pulse Ox O2 Delivery O2 Flow Rate FiO2 01/16/18 11:44 96 50 01/16/18 08:55 18 01/16/18 07:00 Bi-Pap 01/16/18 06:00 87 01/16/18 04:00 98.2 106/54 (71) 01/15/18 00:00 6.00 Labs Laboratory Tests Test 01/16/18 08:29 01/16/18 08:39 White Blood Count 14.3 Red Blood Count 4.31 Hemoglobin 12.1 Hematocrit 36.4 Mean Corpuscular Volume 84.5 Mean Corpuscular Hemoglobin 28.2 Mean Corpuscular Hemoglobin Concent 33.3 Red Cell Distribution Width 16.8 Platelet Count 172 Mean Platelet Volume 8.8 Neutrophils (%) (Auto) 91.1 Lymphocytes (%) (Auto) 1.3 Monocytes (%) (Auto) 7.6 Eosinophils (%) (Auto) 0.0 Basophils (%) (Auto) 0.0 Neutrophils # (Auto) 13.0 Lymphocytes # (Auto) 0.2 Monocytes # (Auto) 1.1 Eosinophils # (Auto) 0.0 Basophils # (Auto) 0.0 CBC Comment DIFF FINAL Differential Comment Blood Urea Nitrogen 38 Creatinine 1.54 Random Glucose 144 Total Protein 6.6 Albumin 2.4 Calcium Level 8.3 Alkaline Phosphatase 62 Aspartate Amino Transf (AST/SGOT) 49 Alanine Aminotransferase (ALT/SGPT) 75 Total Bilirubin 0.6 Sodium Level 141 Potassium Level 3.5 Chloride Level 102 Carbon Dioxide Level 31.8 Anion Gap 7 Estimat Glomerular Filtration Rate 46 Date/Time Source Procedure Growth Status 01/13/18 10:56 Blood Peripheral Aerobic Blood Culture - Preliminary NO GROWTH IN 3 DAYS Resulted 01/13/18 10:56 Blood Peripheral Anaerobic Blood Culture - Preliminary NO GROWTH IN 3 DAYS Resulted 01/13/18 17:15 Urine Catheterized Urine Urine Culture - Preliminary Yeast-Id To Follow Resulted Radiology Last 48 hours Impressions Abdomen/Pelvis CT 01/11/18 0309 Signed Impressions: Service Date/Time: Thursday, January 11, 2018 04:57 - CONCLUSION: 1. Abnormal pancreas diagnostic of acute pancreatitis. There is peripancreatic inflammation and a small volume of free fluid in the abdomen and pelvis. No pancreatic necrosis or pancreatitis associated complications are currently present. 2. Small stones are present within the gallbladder. There is no bile duct dilatation. 3. There are multiple bilateral renal lesions which are incompletely characterized on this study and could represent solid renal lesions or complex cysts. These should be further evaluation once the patient's condition permits. These ideally should be further evaluated with renal protocol MRI with and without intravenous contrast. 4. Nonacute findings include nonobstructing bilateral renal stones and moderate atherosclerotic disease. Mono Wesley MD Chest X-Ray 01/11/18 0000 Signed Impressions: Service Date/Time: Thursday, January 11, 2018 09:33 - CONCLUSION: No acute cardiopulmonary disease. Fabián Flores Jr., MD Abdomen: Non-distended, Non-tender Narrative Exam no peritonitis A/P Assessment and Plan 62yo male with gallstone pancreatitis, stable. continue supportive care, consider lap melba once patient is back to baseline. will follow Attending Statement The exam, history, and the medical decision-making described in the above note were completed with the assistance of the mid-level provider. I reviewed and agree with the findings presented. I attest that I had a [id number] encounter with the patient on the same day, and personally performed and documented my assessment and findings in the medical record. patient with gallstone pancreatitis, improved abdominal exam stable, non-surgical not a candidate for lap melba (high risk for surgery) consider delayed lap melba, likely weeks from now once completely recovered will follow Ernesto Tinajero MD Jan 16, 2018 13:38
--- NOTE | 2018-01-16 13:56 | EKG ---
Date Performed: 01/16/2018 Time Performed: 12:54:13 PTAGE: 62 years EKG: Baseline artifact present PROBABLE Normal Sinus rhythm Cannot rule out INFERIOR MYOCARDIAL INFARCTION , PROBABLY OLD ABNORMAL ECG Compared to prior electr ocardiogram, Nonspecific ST and T wave abnormalities are less marked and rate has decreased PREVIOUS TRACING : 01/12/2018 11.15 DOCTOR: Miguelangel Rudolph Interpretating Date/Time 01/16/2018 13:56:31
[2018-01-16] MEDS: METOCLOPRAMIDE HCL 10 MG/2 ML VIAL IV PUSH PRN (16:36)
[2018-01-16] MEDS ORDERED: HALOPERIDOL LACTATE 5 MG/ML AMP IV PUSH STA (22:10)
[2018-01-17] VITALS (20 sets, daily range): BP systolic 117–148; BP diastolic 64–83; PULSE 89–134; RESP 14–58; TEMP 98.5–99.3; O2SAT 92–100
[2018-01-17] MEDS: methylPREDNISolone SOD SUCC 40 MG/1 ML VIAL IV PUSH SCH ×2 (00:31→13:38)
[2018-01-17] MEDS: RESP: ALBUTEROL 2.5 MG/IPRATROPIUM 0.5 MG NEB (SCH) NEB ×4 (03:21→20:30)
[2018-01-17] MEDS: PIPERACIL-TAZO 4.5 GM PREMIX 100 ML IV SCH ×4 (03:42→20:13)
[2018-01-17] MEDS: HYDROmorphone HCL PF 2 MG/ML VIAL IV PUSH PRN (03:43)
[2018-01-17] MEDS: HALOPERIDOL LACTATE 5 MG/ML AMP IV PUSH PRN ×2 (03:43→08:27)
[2018-01-17] MEDS: CHLORHEXIDINE GLUCONATE 2 % 1 PACK (2 CLOTHS)(taper/protocol) TOPICAL SCH (04:00)
[2018-01-17 04:43] LABS: AUTOMATED NEUTROPHIL # 11.8 TH/MM3 (1.8-7.7); BASOPHIL % 0.2 % (0.0-2.0); HEMATOCRIT 37.6 % (39.0-51.0); HEMOGLOBIN 12.1 GM/DL (13.0-17.0); LYMPH % 1.5 % (9.0-44.0); LYMPHOCYTE # 0.2 TH/MM3 (1.0-4.8); MEAN CORPUSCULAR HEMOGLOBIN 27.3 PG (27.0-34.0); MEAN CORPUSCULAR HGB CONC 32.1 % (32.0-36.0); MEAN PLATELET VOLUME 8.9 FL (7.0-11.0); MONOCYTE # 0.9 TH/MM3 (0-0.9); NEUT % 91.3 % (16.0-70.0); PLATELET COUNT 183 TH/MM3 (150-450); RED BLOOD COUNT 4.43 MIL/MM3 (4.50-5.90); RED CELL DISTRIBUTION WIDTH 16.7 % (11.6-17.2); WHITE BLOOD COUNT 12.9 TH/MM3 (4.0-11.0)
[2018-01-17 05:00] LABS: ALBUMIN 2.4 GM/DL (3.4-5.0); ALT (GPT) 87 U/L (12-78); AST (GOT) 58 U/L (15-37); BICARBONATE 29.8 MEQ/L (21.0-32.0); BLOOD UREA NITROGEN 34 MG/DL (7-18); CALCIUM 8.3 MG/DL (8.5-10.1); CHLORIDE 105 MEQ/L (98-107); CREATININE 1.36 MG/DL (0.60-1.30); GLOMERULAR FILTRATION RATE 53 ML/MIN (>89); GLUCOSE,RANDOM 159 MG/DL (74-106); MAGNESIUM 2.2 MG/DL (1.5-2.5); PHOSPHORUS 2.1 MG/DL (2.5-4.9); SODIUM (NA) 144 MEQ/L (136-145)
[2018-01-17 05:02] LABS: ALKALINE PHOSPHATASE 68 U/L (45-117); TOTAL BILIRUBIN ADULT 0.6 MG/DL (0.2-1.0); TOTAL PROTEIN 6.4 GM/DL (6.4-8.2)
[2018-01-17] MEDS: INSULIN NovoLIN REGULAR SUPPLEMENTAL SCALE SQ SCH ×4 (06:59→18:00)
[2018-01-17] MEDS: SODIUM CHLORIDE 0.9% FLUSH 10 ML FLUSH IV FLUSH SCH ×2 (08:26→20:13)
[2018-01-17] MEDS: DIVALPROEX DR 500 MG TABEC PO SCH ×2 (08:28→20:13)
[2018-01-17] MEDS: FLUCONAZOLE 200 MG TAB PO SCH (08:28)
[2018-01-17] MEDS: FAMOTIDINE 20 MG/2 ML VIAL IV PUSH SCH ×2 (08:28→20:13)
[2018-01-17] MEDS: MORPHINE SULFATE 4 MG/ML INJ IV PUSH PRN (08:28)
[2018-01-17] MEDS: DOCUSATE SODIUM 50 MG/SENNA 8.6 MG TAB PO SCH ×2 (08:29→21:00)
[2018-01-17] MEDS: ROFLUMILAST 500 MCG TAB PO SCH (08:29)
[2018-01-17] MEDS: QUEtiapine FUMARATE 25 MG TAB PO SCH (08:29)
[2018-01-17] MEDS: CITALOPRAM HYDROBROMIDE 40 MG TAB PO SCH (08:29)
[2018-01-17] MEDS: BUDESONIDE-FORMOTEROL 160/4.5 MCG INHALER INH SCH (09:00)
[2018-01-17] MEDS ORDERED: ETOMIDATE 40 MG/20 ML VIAL ONE (09:14)
[2018-01-17] MEDS ORDERED: SODIUM CHLOR 0.9% 1000 ML INJ 1,000 ML IV ONE (09:15)
[2018-01-17] MEDS ORDERED: NOREPINEPHRINE INJ 4 MG in SODIUM CHLOR 0.9% 250 ML INJ 246 ML IV PRN (09:15)
[2018-01-17] MEDS ORDERED: ROCURONIUM INJ 50 MG/5 ML VIAL ONE (09:15)
[2018-01-17] MEDS ORDERED: TERBUTALINE INJ 1 MG/ML AMP SQ PRN (09:15)
[2018-01-17] MEDS ORDERED: ETOMIDATE 40 MG/20 ML VIAL IV PUSH ONE (09:15)
[2018-01-17] MEDS ORDERED: PROPOFOL 500 MG/50 ML INJ 50 ML ONE (09:22)
--- NOTE | 2018-01-17 09:44 | PD.PROCEDR ---
Procedure Note Procedure DATE: 01/17/2018 PROCEDURE: Orotracheal intubation INDICATION: Acute hypoxemic respiratory failure DETAILS OF PROCEDURE The patient was placed in optimal position and preoxygenated with 100% FiO2 via bag valve mask. At the start oxygen saturation was 100%. The patient was administered 40 milligrams etomidate IV and 50 mg rocuronium IV. I entered the oropharynx with a size 4 GVL glidescope blade and obtained a grade 2 view of the airway. On single attempt a size 8.0 cuffed endotracheal tube was passed through the vocal cords. Correct tube location was confirmed with end tidal CO2 detector and by auscultating over bilateral lung dennis. The endotracheal tube was secured with adhesive tape at a depth of 24 cm at the lips. The patient was connected to the ventilator. The patient tolerated the procedure well without any apparent complications. Oxygen saturations were maintained greater than 90% all times. STAT chest x-ray pending at time of dictation. Trey Patel MD Jan 17, 2018 09:44
--- NOTE | 2018-01-17 09:46 | HHI.CCPN ---
Subjective Remarks/Hospital Course Patient is a 62-year-old male with past medical history of COPD, on 2 L home oxygen nocturnally, diabetes mellitus type 2, renal stones who was admitted to [facility] on 01/11 under hospitalist service for acute pancreatitis. He had a CT scan of the abdomen and pelvis which showed findings compatible with acute pancreatitis. There was no evidence of any pancreatic necrosis. Small stones present within the gallbladder. No bile duct dilatation seen. In addition, the patient has nonobstructing bilateral renal stones. He has been seen by GI and general surgery service for possible laparoscopic cholecystectomy. He is scheduled to undergo MRCP today per GI's recommendations. Patient was placed on BiPAP for acute hypercapnic respiratory acidosis and his last ABG from this morning showed a pH of 7.29, CO2 58, PaO2 87 , bicarb 26, sats 93% on BiPAP 18/5 with 40% FIO2. Chest x-ray from this morning showed underinflation and bibasilar airspace opacities which would represent atelectasis or airspace consolidation. He was started on IV steroids yesterday. When seen, patient remains on BiPAP. He states that he isfeeling overall better compared to when he was admitted. He quit smoking 10 years ago. He denies any worsening shortness of breath, chest pain, cough, or any edema of lower extremities. He spiked a fever with a temperature of 101.2 last night. 01/14 Patient remains on BIPAP with 40% FIO2. Afebrile. Awake and alert. Lipase now is within normal range however renal function is declining with Cr: 1.96 from 1.84 01/15 No events overnight. On BIPAP 18/5 with 40% FIO2. Tmax 100.2 yesterday 01/16 Was off Bipap part of yesterday but went back on around 3 pm and has remained on Bipap. He becomes agitated intermittently and appears to be having urinary retention with overflow incontinence. Placing Elliott. He removed Bipap and sats were 77% on RA. He is asking to eat, denies abd pain/n/v/ CP. No BM since 01/10. Daughter at bedside requesting something for his agitation. Subjective: 01/17: Patient on BiPAP and extremely agitated. Not keeping mask on. Desaturations once BiPAP removed. Decision made to emergently intubated for airway protection. Objective Vital Signs Date Time Temp Pulse Resp B/P (MAP) Pulse Ox O2 Delivery O2 Flow Rate FiO2 01/17/18 08:13 97 45 01/17/18 06:00 92 01/17/18 04:13 18 01/17/18 04:00 98.5 125/68 (87) 01/16/18 20:15 Simple Mask 6.00 Intake and Output 01/17/18 01/17/18 01/18/18 08:00 16:00 00:00 Output Total 1425 ml Balance -1425 ml Result Diagram: 01/17/18 0353 01/17/18 0353 Other Results Microbiology Date/Time Source Procedure Growth Status 01/13/18 10:56 Blood Peripheral Aerobic Blood Culture - Preliminary NO GROWTH IN 4 DAYS Resulted 01/13/18 10:56 Blood Peripheral Anaerobic Blood Culture - Preliminary NO GROWTH IN 4 DAYS Resulted 01/13/18 17:15 Urine Catheterized Urine Urine Culture - Final Martha Parapsilosis Complete Imaging Last Impressions Chest X-Ray 01/17/18 0000 Signed Impressions: Service Date/Time: Wednesday, January 17, 2018 09:39 - CONCLUSION: 1. Interval placement of endotracheal tube which is in good position. 2. Persistent bibasilar airspace disease. Luther Stauffer MD Abdomen X-Ray 01/13/18 0000 Signed Impressions: Service Date/Time: Saturday, January 13, 2018 16:10 - CONCLUSION: Limited study with normal bowel gas pattern. Fabián Flores Jr., MD Abdomen/Pelvis CT 01/11/18 0305 Signed Impressions: Service Date/Time: Thursday, January 11, 2018 04:57 - CONCLUSION: 1. Abnormal pancreas diagnostic of acute pancreatitis. There is peripancreatic inflammation and a small volume of free fluid in the abdomen and pelvis. No pancreatic necrosis or pancreatitis associated complications are currently present. 2. Small stones are present within the gallbladder. There is no bile duct dilatation. 3. There are multiple bilateral renal lesions which are incompletely characterized on this study and could represent solid renal lesions or complex cysts. These should be further evaluation once the patient's condition permits. These ideally should be further evaluated with renal protocol MRI with and without intravenous contrast. 4. Nonacute findings include nonobstructing bilateral renal stones and moderate atherosclerotic disease. Mono Wesley MD Objective Remarks GENERAL: [id number] male currently orotracheally intubated SKIN: Warm and dry. Port accessed L chest, without erythema HEAD: Normocephalic. EYES: No scleral icterus. No injection or drainage. NECK: Supple, trachea midline. No JVD or lymphadenopathy. CARDIOVASCULAR: Regular rate and rhythm without murmurs, gallops, or rubs. RESPIRATORY: Diminished breath sounds throughout. No wheezing GASTROINTESTINAL: Abdomen morbidly obese, soft, non-tender, nondistended. Bowel sounds present. MUSCULOSKELETAL: Trace nonpitting bilateral lower extremity edema NEURO: Cranial nerves II through XII grossly intact. Withdraws to pain in all 4 extremities.. Positive gag. Positive corneal reflex. Positive cough. A/P Assessment and Plan 3. Obesity. 4. Acute pancreatitis. Neuro: Agitated delirium History of depression History of peripheral neuropathy History of EtOH use Continue divalproex 500mg PO BID,. Recheck down valproic acid in a.m. Continue Citalopram 40 mg p.o. daily Discontinue quetiapine and haloperidol as this appear to be worsening his agitation Check EEG Check CT brain Thiamine, folate and multivitamin daily Pulm: Acute hypercapnic respiratory failure with chronic hypoxia [facility] 18/550/11/13/ Ventilator bundle Albuterol/ipratropium aerosols every 4 hours with albuterol aerosols every 2 hours as needed dyspnea Add budesonide 0.5/2 1 inhalation twice daily Rofluilast 500 mcg po daily -can be a cause of pancreatitis Currently on methylprednisolone succinate 40 mg IV every 12 hours Follow postintubation chest x-ray CV: Monitor HR and BP and maintain MAP> 65 mmHg. Lactic acid level 1.1 on 01/11. On 0.9 NaCl 75/hr Not requiring vasopressors and/or antihypertensives Renal//FEN/: HAMMAD. Urinary retention Bilateral nephrolithiasis Bilateral renal masses -recommend MRI of kidneys with contrast when stable Baseline creatinine unknown. Holding furosemide 20 mg daily with acute kidney injury Insert Elliott. Monitor intake and output. CT abd/pelvis 01/11: No hydronephrosis GI Acute pancreatitis Cholelithiasis Constipation Gastroesophageal reflux disease Monitor LFTs( trending down), Lipase level is now within normal. Currently on famotidine 20 mg IV twice daily. Patient is on omeprazole 20 mg daily at home GI has followed. For MRCP when stable from respiratory standpoint. General surgery following regarding timing of laparoscopic cholecystectomy Docusate sodium/senna 1 tablet twice daily for bowel regimen Add lactulose 30 cc 4 times daily and polythene glycol 17 g twice daily. ID: Candiduria On piperacillin/tazobactam n for gallstone pancreatitis 01/11 #7. Follow up on Blood and urine x from 01/13- NGTD Strep pneumonia and Legionella urinary Ag negative urine cx 01/11: Martha parapsilosis. Urine culture with peristent yeast 01/13 and patient with urinary symptoms so will treat with diflucan 200 po daily. Will consult ID as Jl, Endo: Diabetes mellitus Lows SSI with Aspart insulin Accu-Cheks q6 hours for glycemic control, Hold home medication metformin 500 mg p.o. daily MSK: Elevated BMI 45.7 Weight loss encouraged GI prophylaxis with famotidine and DVT prophylaxis with SCDs/Enoxaparin 40 mg daily. ACCESS: Port accessed L chest Discussed with patient's and daughter who is at bedside. Level 3 Trey Patel MD Jan 17, 2018 09:46
[2018-01-17] MEDS ORDERED: ROCURONIUM INJ 100 MG/10 ML VIAL IV ONE (10:00)
--- NOTE | 2018-01-17 10:52 | RADRPT ---
EXAM DATE/TIME: 01/17/2018 09:39 [facility] COMPARISON: CHEST SINGLE AP, January 13, 2018, 6:40. INDICATIONS : Post intubation. MEDICAL HISTORY : Chronic obstructive pulmonary disease. Gastroesophageal reflux disease. diabetes SURGICAL HISTORY : None. ENCOUNTER: Initial ACUITY: 1 day PAIN SCORE: Non-responsive. LOCATION: Bilateral chest FINDINGS: Endotracheal tube has been inserted and is in good position. Left subclavian [id number] is in stab le position. Significant basilar airspace disease remains evident. The heart is moderately enlarged. CONCLUSION: 1. Interval placement of endotracheal tube which is in good position. 2. Persistent bibasilar airspace disease. Luther Stauffer MD on January 17, 2018 at 10:49 Board Certified Radiologist. This report was verified electronically.
[2018-01-17] MEDS: ENOXAPARIN SODIUM 40 MG/0.4 ML SYRINGE SQ SCH (13:37)
[2018-01-17] MEDS ORDERED: POTASSIUM CHLOR 20 MEQ PREMIX 100 ML IV ONE (14:45)
[2018-01-17] MEDS ORDERED: POTASSIUM PHOSPHATE INJ 30 MMOL in SODIUM CHLOR 0.9% 250 ML INJ 250 ML IV ONE (16:00)
[2018-01-17] MEDS: SODIUM CHLOR 0.9% 1000 ML INJ 1,000 ML IV SCH ×2 (17:37→23:12)
[2018-01-17] MEDS ORDERED: RESP: ALBUTEROL 2.5 MG/3 ML NEB (PRN) NEB (18:00)
[2018-01-17] MEDS: CHLORHEXIDINE 0.12% (ORAL KIT) 15 ML CUP MT SCH (20:10)
[2018-01-17] MEDS: fentaNYL DRIP 250 ML IV PRN (20:11)
[2018-01-17] MEDS: RESP: BUDESONIDE 0.5 MG/2 ML NEB NEB SCH (20:30)
[2018-01-18] VITALS (34 sets, daily range): BP systolic 121–164; BP diastolic 67–96; PULSE 92–128; RESP 19–38; TEMP 98.3–100.2; O2SAT 91–100
[2018-01-18] MEDS: RESP: ALBUTEROL 2.5 MG/IPRATROPIUM 0.5 MG NEB (SCH) NEB ×7 (00:31→23:53)
[2018-01-18] MEDS: methylPREDNISolone SOD SUCC 40 MG/1 ML VIAL IV PUSH SCH ×3 (00:55→23:23)
[2018-01-18] MEDS: INSULIN NovoLIN REGULAR SUPPLEMENTAL SCALE SQ SCH ×5 (00:56→23:23)
[2018-01-18] MEDS: PIPERACIL-TAZO 4.5 GM PREMIX 100 ML IV SCH ×4 (02:44→21:49)
[2018-01-18 03:58] LABS: HEMOGLOBIN 12.3 GM/DL (13.0-17.0); MEAN CELL VOLUME 85.7 FL (80.0-100.0); MEAN CORPUSCULAR HEMOGLOBIN 27.8 PG (27.0-34.0); MEAN CORPUSCULAR HGB CONC 32.5 % (32.0-36.0); PLATELET COUNT 203 TH/MM3 (150-450); RED BLOOD COUNT 4.43 MIL/MM3 (4.50-5.90); RED CELL DISTRIBUTION WIDTH 16.8 % (11.6-17.2)
[2018-01-18 04:03] LABS: INTERNATIONAL NORMALIZED RATIO 1.1 RATIO; PROTHROMBIN TIME - PATIENT 11.4 SEC (9.8-11.6)
[2018-01-18 04:26] LABS: ALBUMIN 2.1 GM/DL (3.4-5.0); ALT (GPT) 73 U/L (12-78); AST (GOT) 43 U/L (15-37); BICARBONATE 29.6 MEQ/L (21.0-32.0); BLOOD UREA NITROGEN 32 MG/DL (7-18); CALCIUM 8.4 MG/DL (8.5-10.1); CHLORIDE 108 MEQ/L (98-107); CHOLESTEROL 156 MG/DL (120-200); CREATININE 1.29 MG/DL (0.60-1.30); GLOMERULAR FILTRATION RATE 57 ML/MIN (>89); GLUCOSE,RANDOM 174 MG/DL (74-106); MAGNESIUM 2.2 MG/DL (1.5-2.5); PHOSPHORUS 2.7 MG/DL (2.5-4.9); SODIUM (NA) 147 MEQ/L (136-145); TRIGLYCERIDES 223 MG/DL (42-150)
[2018-01-18 04:29] LABS: ALKALINE PHOSPHATASE 68 U/L (45-117); CHOLESTEROL/ HDL RATIO 3.75 RATIO; HDL CHOLESTEROL 41.6 MG/DL (40.0-60.0); LDL CHOLESTEROL 70 MG/DL (0-99); TOTAL BILIRUBIN ADULT 0.5 MG/DL (0.2-1.0); TOTAL PROTEIN 6.1 GM/DL (6.4-8.2)
--- NOTE | 2018-01-18 05:20 | RADRPT ---
EXAM DATE/TIME: 01/18/2018 03:42 [facility] COMPARISON: CHEST SINGLE AP, January 17, 2018, 9:39. INDICATIONS : Shortness of breath, possible pulmonary disease. MEDICAL HISTORY : Chronic obstructive pulmonary disease. Gastroesophageal reflux disease. Diabetes SURGICAL HISTORY : None. ENCOUNTER: Subsequent ACUITY: 1 week PAIN SCORE: Non-responsive. LOCATION: Bilateral chest FINDINGS: Bibasilar pulmonary consolidations shown no significant change. No discrete effusions. The heart is m ildly enlarged. Tip of endotracheal tube 4 cm cephalad to the [place]. Tip of the nasogastric tube cou rses off the inferior margin of the film. Left-sided Port-A-Cath. CONCLUSION: Unchanged bibasilar infiltrates and cardiomegaly. Fabián Flores Jr., MD on January 18, 2018 at 5:17 Board Certified Radiologist. This report was verified electronically.
[2018-01-18] MEDS: MIDAZOLAM 100 MG/100 ML INJ 100 ML IV PRN ×2 (07:00→16:55)
[2018-01-18] MEDS: RESP: BUDESONIDE 0.5 MG/2 ML NEB NEB SCH ×2 (07:09→21:18)
[2018-01-18] MEDS: DOCUSATE SODIUM 50 MG/SENNA 8.6 MG TAB PO SCH (08:32)
[2018-01-18] MEDS: DIVALPROEX DR 500 MG TABEC PO SCH ×2 (08:32→21:49)
[2018-01-18] MEDS: CHOLECALCIFEROL (VIT D3) 1000 UNIT TAB PO SCH (08:33)
[2018-01-18] MEDS: ROFLUMILAST 500 MCG TAB PO SCH (08:33)
[2018-01-18] MEDS: FAMOTIDINE 20 MG/2 ML VIAL IV PUSH SCH ×2 (08:33→21:49)
[2018-01-18] MEDS: MULTIVITAMIN TAB PO SCH (08:33)
[2018-01-18] MEDS: FOLIC ACID 1 MG TAB PO SCH (08:33)
[2018-01-18] MEDS: CYANOCOBALAMIN 1,000 MCG TAB PO SCH (08:33)
[2018-01-18] MEDS: FLUCONAZOLE 200 MG TAB PO SCH (08:33)
[2018-01-18] MEDS: fentaNYL DRIP 250 ML IV PRN ×2 (08:34→21:58)
[2018-01-18] MEDS: SODIUM CHLORIDE 0.9% FLUSH 10 ML FLUSH IV FLUSH SCH ×2 (08:37→21:49)
[2018-01-18] MEDS: THIAMINE HCL 100 MG TAB PO SCH (09:00)
[2018-01-18] MEDS ORDERED: THIAMINE HCL 100 MG TAB PO SCH (09:00)
[2018-01-18] MEDS: CITALOPRAM HYDROBROMIDE 40 MG TAB PO SCH (09:00)
[2018-01-18] MEDS: PROPOFOL 1000 MG/100 ML INJ 100 ML IV PRN ×4 (09:16→21:58)
[2018-01-18] MEDS: CHLORHEXIDINE 0.12% (ORAL KIT) 15 ML CUP MT SCH ×2 (09:20→21:50)
[2018-01-18 09:27] LABS: BANDS 15 % (0-6); LYMPHOCYTES 3 % (9-44); MONOCYTES 7 % (0-8); NEUTROPHIL # MANUAL DIFF 12.6 TH/MM3 (1.8-7.7); POLYS (SEG NEUTROPHILS) 75 % (16-70)
[2018-01-18] MEDS: ENOXAPARIN SODIUM 40 MG/0.4 ML SYRINGE SQ SCH (11:33)
--- NOTE | 2018-01-18 12:05 | HHI.CCPN ---
Subjective Remarks/Hospital Course Patient is a 62-year-old male with past medical history of COPD, on 2 L home oxygen nocturnally, diabetes mellitus type 2, renal stones who was admitted to [facility] on 01/11 under hospitalist service for acute pancreatitis. He had a CT scan of the abdomen and pelvis which showed findings compatible with acute pancreatitis. There was no evidence of any pancreatic necrosis. Small stones present within the gallbladder. No bile duct dilatation seen. In addition, the patient has nonobstructing bilateral renal stones. He has been seen by GI and general surgery service for possible laparoscopic cholecystectomy. He is scheduled to undergo MRCP today per GI's recommendations. Patient was placed on BiPAP for acute hypercapnic respiratory acidosis and his last ABG from this morning showed a pH of 7.29, CO2 58, PaO2 87 , bicarb 26, sats 93% on BiPAP 18/5 with 40% FIO2. Chest x-ray from this morning showed underinflation and bibasilar airspace opacities which would represent atelectasis or airspace consolidation. He was started on IV steroids yesterday. When seen, patient remains on BiPAP. He states that he isfeeling overall better compared to when he was admitted. He quit smoking 10 years ago. He denies any worsening shortness of breath, chest pain, cough, or any edema of lower extremities. He spiked a fever with a temperature of 101.2 last night. 01/14 Patient remains on BIPAP with 40% FIO2. Afebrile. Awake and alert. Lipase now is within normal range however renal function is declining with Cr: 1.96 from 1.84 01/15 No events overnight. On BIPAP 18/5 with 40% FIO2. Tmax 100.2 yesterday 01/16 Was off Bipap part of yesterday but went back on around 3 pm and has remained on Bipap. He becomes agitated intermittently and appears to be having urinary retention with overflow incontinence. Placing Elliott. He removed Bipap and sats were 77% on RA. He is asking to eat, denies abd pain/n/v/ CP. No BM since 01/10. Daughter at bedside requesting something for his agitation. 01/17: Patient on BiPAP and extremely agitated. Not keeping mask on. Desaturations once BiPAP removed. Decision made to emergently intubated for airway protection. Subjective: 01/18: T-max 100.2. Tolerating trickle feeds at 20 cc an hour with Glucerna 1.5. No bowel movement for several days. Aggressive bowel regimen initiated. Objective Vital Signs Date Time Temp Pulse Resp B/P (MAP) Pulse Ox O2 Delivery O2 Flow Rate FiO2 01/18/18 10:55 95 45 01/18/18 10:00 101 01/18/18 09:02 21 164/85 (111) 01/18/18 08:00 100.2 01/18/18 07:00 Mechanical Ventilator 01/16/18 20:15 6.00 Intake and Output 01/18/18 01/18/18 01/19/18 08:00 16:00 00:00 Intake Total 249 ml 100 ml Output Total 1250 ml Balance -1001 ml 100 ml Result Diagram: 01/18/18 0335 01/18/18 0335 Other Results Microbiology Date/Time Source Procedure Growth Status 01/13/18 10:56 Blood Peripheral Aerobic Blood Culture - Final NO GROWTH IN 5 DAYS Complete 01/13/18 10:56 Blood Peripheral Anaerobic Blood Culture - Final NO GROWTH IN 5 DAYS Complete 01/13/18 17:15 Urine Catheterized Urine Urine Culture - Final Leticia Parapsilosis Complete Imaging Last Impressions Chest X-Ray 01/18/18 0600 Signed Impressions: Service Date/Time: Thursday, January 18, 2018 03:42 - CONCLUSION: Unchanged bibasilar infiltrates and cardiomegaly. Fabián Flores Jr., MD Abdomen X-Ray 01/13/18 0000 Signed Impressions: Service Date/Time: Saturday, January 13, 2018 16:10 - CONCLUSION: Limited study with normal bowel gas pattern. Fabián Flores Jr., MD Abdomen/Pelvis CT 01/11/18 0305 Signed Impressions: Service Date/Time: Thursday, January 11, 2018 04:57 - CONCLUSION: 1. Abnormal pancreas diagnostic of acute pancreatitis. There is peripancreatic inflammation and a small volume of free fluid in the abdomen and pelvis. No pancreatic necrosis or pancreatitis associated complications are currently present. 2. Small stones are present within the gallbladder. There is no bile duct dilatation. 3. There are multiple bilateral renal lesions which are incompletely characterized on this study and could represent solid renal lesions or complex cysts. These should be further evaluation once the patient's condition permits. These ideally should be further evaluated with renal protocol MRI with and without intravenous contrast. 4. Nonacute findings include nonobstructing bilateral renal stones and moderate atherosclerotic disease. Mono Wesley MD Objective Remarks GENERAL: 62year-old male currently orotracheally intubated SKIN: Warm and dry. Port accessed L chest, without erythema HEAD: Normocephalic. EYES: No scleral icterus. No injection or drainage. NECK: Supple, trachea midline. No JVD or lymphadenopathy. CARDIOVASCULAR: Regular rate and rhythm without murmurs, gallops, or rubs. RESPIRATORY: Diminished breath sounds throughout. No wheezing GASTROINTESTINAL: Abdomen morbidly obese, stented and tympanic. Hypoactive bowel sounds appreciated. MUSCULOSKELETAL: Trace nonpitting bilateral lower extremity edema. Positive tinea cruris NEURO: Cranial nerves II through XII grossly intact. Withdraws to pain in all 4 extremities.. Positive gag. Positive corneal reflex. Positive cough. Urinary Catheter: Yes Assessment to: Continue Elliott insert reason: Prolonged Immobilization Vascular Central Line Catheter: No Assessment to: Continue A/P Assessment and Plan Neuro/Psych: Agitated delirium History of depression History of peripheral neuropathy History of EtOH use Currently on propofol drip at 50 mcg/kg/min/midazolam drip at 10 mg an hour and/ fentanyl drips at 100 mg an hour for sedation/analgesia while intubated Goal of RASS -2 Daily sedation vacation Continue divalproex 500mg PO BID,. Recheck valproic acid in a.m. Continue Citalopram 40 mg p.o. daily Check EEG Check MRI brain Thiamine, folate and multivitamin daily Pulm: Acute hypercapnic respiratory failure with chronic hypoxia COPD [facility] 18/550/11/13/44 Ventilator bundle Albuterol/ipratropium aerosols every 4 hours with albuterol aerosols every 2 hours as needed dyspnea Continue budesonide 0.5/2 1 inhalation twice daily Rofluilast 500 mcg po daily -can be a cause of pancreatitis Currently on methylprednisolone succinate 40 mg IV every 12 hours Chest x-ray in a.m. 01/19 CV: Sinus tachycardia Elevated triglycerides Monitor HR and BP and maintain MAP> 65 mmHg. Lactic acid level 1.1 on 01/11. On 0.9 NaCl 75/hr. Switch to free water 200 cc every 8 hours Not requiring vasopressors and/or antihypertensives Renal//FEN/: HAMMAD. Urinary retention Bilateral nephrolithiasis Bilateral renal masses -recommend MRI of kidneys with contrast when stable Hypernatremia Baseline creatinine unknown. Holding furosemide 20 mg daily with acute kidney injury Insert and maintain Elliott. Monitor intake and output. CT abd/pelvis 01/11: No hydronephrosis GI Acute pancreatitis Cholelithiasis Constipation Gastroesophageal reflux disease Hypoalbuminemia Monitor LFTs( trending down), Lipase level is now within normal. Currently on famotidine 20 mg IV twice daily. Patient is on omeprazole 20 mg daily at home GI has followed. For MRCP when stable from respiratory standpoint. General surgery following regarding timing of laparoscopic cholecystectomy Docusate sodium 100 mg twice daily, senna liquid 8.8 mg by tube twice daily, Add lactulose 30 cc 4 times daily and polythene glycol 17 g twice daily. Glycerin suppository 1. Mineral oil 30 cc 1 Check KUB ID: Candiduria On piperacillin/tazobactam n for gallstone pancreatitis 01/11 #8. Follow up on Blood and urine x from 01/13- NGTD Strep pneumonia and Legionella urinary Ag negative urine cx 01/11: Leticia parapsilosis. Urine culture with persistent yeast 01/13 and patient with urinary symptoms so treated with fluconazole 200 po daily. Consult infectious disease with persistent sepsis Endo: Diabetes mellitus Lows SSI with Aspart insulin Accu-Cheks q6 hours for glycemic control, Hold home medication metformin 500 mg p.o. daily MSK: Elevated BMI 45.7 Weight loss encouraged GI prophylaxis with famotidine and DVT prophylaxis with SCDs/Enoxaparin 40 mg daily. ACCESS: Port accessed L chest Discussed with patient's and daughter who is at bedside. Level 3 Trey Patel MD Jan 18, 2018 12:05
--- NOTE | 2018-01-18 12:12 | HHI.GIFU ---
Subjective Remarks Pt intubated yesterday. Now on vent. (Adriane Bernabe) Objective Vitals I&O Vital Signs Date Time Temp Pulse Resp B/P (MAP) Pulse Ox O2 Delivery O2 Flow Rate FiO2 01/18/18 10:55 95 45 01/18/18 10:00 101 01/18/18 09:02 128 21 164/85 (111) 93 01/18/18 08:45 123 28 156/96 (116) 92 01/18/18 08:30 106 20 145/75 (98) 92 01/18/18 08:15 108 21 142/79 (100) 93 01/18/18 08:00 100.2 100 21 132/72 (92) 93 01/18/18 08:00 45 01/18/18 08:00 100 01/18/18 07:45 101 22 128/73 (91) 93 01/18/18 07:30 104 22 129/73 (91) 93 01/18/18 07:15 108 28 122/78 (93) 99 01/18/18 07:09 95 45 01/18/18 07:00 95 21 129/71 (90) 94 01/18/18 07:00 94 Mechanical Ventilator 50 01/18/18 06:00 104 01/18/18 04:44 94 50 01/18/18 04:00 50 01/18/18 04:00 98.5 99 24 133/67 (89) 94 01/18/18 04:00 99 01/18/18 02:00 98 01/18/18 00:31 99 50 01/18/18 00:30 50 01/18/18 00:00 93 01/18/18 00:00 98.3 93 19 136/75 (95) 100 01/18/18 00:00 70 01/17/18 22:00 98 01/17/18 20:30 100 65 01/17/18 20:00 70 01/17/18 20:00 89 01/17/18 20:00 98.7 89 18 134/76 (95) 100 01/17/18 19:00 97 Mechanical Ventilator 70 01/17/18 18:00 104 01/17/18 16:45 98 70 01/17/18 16:00 98.6 89 18 123/66 (85) 100 01/17/18 16:00 70 01/17/18 16:00 89 01/17/18 14:00 100 I/O 01/17/18 01/17/18 01/17/18 01/18/18 01/18/18 01/18/18 06:59 14:59 22:59 06:59 14:59 22:59 Intake Total 100 ml 124 ml 409 ml 200 ml Output Total 1425 ml 1400 ml 1250 ml Balance -1425 ml 100 ml -1276 ml -841 ml 200 ml Intake Oral 24 ml IV Total 100 ml 100 ml 260 ml 200 ml Tube Feeding 149 ml Output Urine Total 1425 ml 1300 ml 1250 ml Gastric Drainage Total 100 ml # Bowel Movements 0 0 0 Laboratory Laboratory Tests Test 01/18/18 03:35 White Blood Count 14.0 Red Blood Count 4.43 Hemoglobin 12.3 Hematocrit 38.0 Mean Corpuscular Volume 85.7 Mean Corpuscular Hemoglobin 27.8 Mean Corpuscular Hemoglobin Concent 32.5 Red Cell Distribution Width 16.8 Platelet Count 203 Mean Platelet Volume 9.0 CBC Comment AUTO DIFF Differential Total Cells Counted 100 Neutrophils % (Manual) 75 Band Neutrophils % 15 Lymphocytes % 3 Monocytes % 7 Neutrophils # (Manual) 12.6 Differential Comment FINAL DIFF MANUAL Platelet Estimate NORMAL Platelet Morphology Comment NORMAL Red Cell Morphology Comment NORMAL Prothrombin Time 11.4 Prothromb Time International Ratio 1.1 Activated Partial Thromboplast Time 21.9 Blood Urea Nitrogen 32 Creatinine 1.29 Random Glucose 174 Total Protein 6.1 Albumin 2.1 Calcium Level 8.4 Phosphorus Level 2.7 Magnesium Level 2.2 Alkaline Phosphatase 68 Aspartate Amino Transf (AST/SGOT) 43 Alanine Aminotransferase (ALT/SGPT) 73 Total Bilirubin 0.5 Sodium Level 147 Potassium Level 3.6 Chloride Level 108 Carbon Dioxide Level 29.6 Anion Gap 9 Estimat Glomerular Filtration Rate 57 Ammonia 19 Triglycerides Level 223 Cholesterol Level 156 LDL Cholesterol 70 HDL Cholesterol 41.6 Cholesterol/HDL Ratio 3.75 Lipase 97 Valproic Acid (Depakene) Level 26 Date/Time Source Procedure Growth Status 01/13/18 10:56 Blood Peripheral Aerobic Blood Culture - Final NO GROWTH IN 5 DAYS Complete 01/13/18 10:56 Blood Peripheral Anaerobic Blood Culture - Final NO GROWTH IN 5 DAYS Complete 01/13/18 17:15 Urine Catheterized Urine Urine Culture - Final Leticia Parapsilosis Complete Imaging Last Impressions Chest X-Ray 01/18/18 0600 Signed Impressions: Service Date/Time: Thursday, January 18, 2018 03:42 - CONCLUSION: Unchanged bibasilar infiltrates and cardiomegaly. Fabián Flores Jr., MD Abdomen X-Ray 01/13/18 0000 Signed Impressions: Service Date/Time: Saturday, January 13, 2018 16:10 - CONCLUSION: Limited study with normal bowel gas pattern. Fabián Flores Jr., MD Abdomen/Pelvis CT 01/11/18 0305 Signed Impressions: Service Date/Time: Thursday, January 11, 2018 04:57 - CONCLUSION: 1. Abnormal pancreas diagnostic of acute pancreatitis. There is peripancreatic inflammation and a small volume of free fluid in the abdomen and pelvis. No pancreatic necrosis or pancreatitis associated complications are currently present. 2. Small stones are present within the gallbladder. There is no bile duct dilatation. 3. There are multiple bilateral renal lesions which are incompletely characterized on this study and could represent solid renal lesions or complex cysts. These should be further evaluation once the patient's condition permits. These ideally should be further evaluated with renal protocol MRI with and without intravenous contrast. 4. Nonacute findings include nonobstructing bilateral renal stones and moderate atherosclerotic disease. Mono Wesley MD Physical Exam HEENT: Normocephalic; atraumatic intubated CHEST: CTA CARDIAC: RRR ABDOMEN: Distended, semi-firm, bowel sounds active SKIN: Normal; no rash; no jaundice. 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 lipase > 20,000. LFTs are elevated in obstructive pattern but CT showed no ductal dilatation. - leukocytosis - WBC 20k 2/2 above (01/12) Pt was Halicat today for respiratory distress, now on BiPAP. Now in IMC. Reports of a-flutter on floor now S/P Cardizem bolus and he is now sinus tachycardia. Transaminitis- LFTs trending down. AST-178 ALT-236 T bili-3.8 Alk phos-86. Hepatitis panel pending. Pancreatitis- ? Secondary to gallstone. Lipase trending down -2740. Pt was unable to have MRCP done yet, due to respiratory issues and transfer, exam pending. ? ERCP depending on results, however, pt will need to be more stable for this. GS consult appreciated- they discussed possibility of cholecystectomy, this was prior to pts change in status. Leukocytosis- some improvement. Afebrile. On Zosyn. (01/13) --> Pt remains in IMC, on BiPAP, reports of nausea earlier. Pt complaining of abdominal distention, no BM since Thursday night. He states abdominal pain, can not localize it to one area. LFTs continue to improved. Hepatitis panel negative. MRCP still pending given respiratory status. Leukocytosis trending down. Fever documented last night at 101.2. Remains on Zosyn. (01/14) Pt with improved respiratory status today, switched to NC this morning and seems to be tolerating. Reports nausea, Zofran not lasting long enough. Also complaining of continued diffuse abdominal pain. KUB noted --> Limited study with normal bowel gas pattern. LFTs continue to improve. Drop in H/H noted, possibly dilutional, no obvious GIB. Leukocytosis, febrile this afternoon. MRCP pending. 01/18/18 intubated yesterday. LFTs improving, likely passed stone. Gs following, poss lap melba when stable PLAN - further mgmt per GS - Monitor LFTs - Monitor CBC - Continue Zosyn - supportive care - GI will sign off, please reconsult if needed Pt has been seen and examined by myself and Dr. Mc and this note is written on his behalf (Adriane Bernabe) Physician Comments Agree with the plan as above. Please notify us if needed. (Ja Mc MD) Adriane Bernabe Jan 18, 2018 12:12 Ja Mc MD Jan 18, 2018 14:55
[2018-01-18] MEDS ORDERED: POTASSIUM CHLORIDE 20 MEQ PWD PACKET PO ONE (12:30)
[2018-01-18] MEDS: LACTULOSE SYRUP 20 GM/30 ML CUP PO SCH ×3 (12:39→21:49)
[2018-01-18] MEDS ORDERED: GLYCERIN ADULT 2 GM SUPP RECTAL ONE (13:00)
--- NOTE | 2018-01-18 13:39 | RADRPT ---
EXAM DATE/TIME: 01/18/2018 12:58 [facility] COMPARISON: ABDOMEN KUB ONLY, January 13, 2018, 16:10. INDICATIONS : Constipation MEDICAL HISTORY : Chronic obstructive pulmonary disease. Gastroesophageal reflux disease. diabetes SURGICAL HISTORY : None. ENCOUNTER: Initial ACUITY: 1 week PAIN SCORE: Non-responsive. LOCATION: Bilateral abdomen FINDINGS: EKG leads overlie the chest. NG tube coiled in the stomach. There is mild diffuse gaseous distention of large bowel. No significant stool burden. CONCLUSION: There is mild gaseous distention of the large bowel. Reid Collier MD on January 18, 2018 at 13:36 Board Certified Radiologist. This report was verified electronically.
[2018-01-18] MEDS: ARTIFICIAL TEARS OPTH SOLN 15 ML BTL EACH EYE SCH ×2 (13:51→21:50)
[2018-01-18] MEDS: FREE WATER G-TUBE SCH ×2 (13:56→21:50)
[2018-01-18] MEDS ORDERED: METHYLNALTREXONE BROMIDE 12 MG/0.6 ML VIAL SQ ONE (14:00)
[2018-01-18] MEDS ORDERED: MINERAL OIL EMULSION 55% PO ONE (14:00)
--- NOTE | 2018-01-18 16:36 | HHI.PR ---
cc: Ernesto Tinajero MD Subjective Subjective Notes Intubated/Sedated Objective Vitals/I&O Vital Signs Date Time Temp Pulse Resp B/P (MAP) Pulse Ox O2 Delivery O2 Flow Rate FiO2 01/18/18 15:35 91 45 01/18/18 14:00 95 01/18/18 12:00 98.9 20 121/72 (88) 01/18/18 07:00 Mechanical Ventilator 01/16/18 20:15 6.00 Labs Laboratory Tests Test 01/18/18 03:35 White Blood Count 14.0 Red Blood Count 4.43 Hemoglobin 12.3 Hematocrit 38.0 Mean Corpuscular Volume 85.7 Mean Corpuscular Hemoglobin 27.8 Mean Corpuscular Hemoglobin Concent 32.5 Red Cell Distribution Width 16.8 Platelet Count 203 Mean Platelet Volume 9.0 CBC Comment AUTO DIFF Differential Total Cells Counted 100 Neutrophils % (Manual) 75 Band Neutrophils % 15 Lymphocytes % 3 Monocytes % 7 Neutrophils # (Manual) 12.6 Differential Comment FINAL DIFF MANUAL Platelet Estimate NORMAL Platelet Morphology Comment NORMAL Red Cell Morphology Comment NORMAL Prothrombin Time 11.4 Prothromb Time International Ratio 1.1 Activated Partial Thromboplast Time 21.9 Blood Urea Nitrogen 32 Creatinine 1.29 Random Glucose 174 Total Protein 6.1 Albumin 2.1 Calcium Level 8.4 Phosphorus Level 2.7 Magnesium Level 2.2 Alkaline Phosphatase 68 Aspartate Amino Transf (AST/SGOT) 43 Alanine Aminotransferase (ALT/SGPT) 73 Total Bilirubin 0.5 Sodium Level 147 Potassium Level 3.6 Chloride Level 108 Carbon Dioxide Level 29.6 Anion Gap 9 Estimat Glomerular Filtration Rate 57 Ammonia 19 Triglycerides Level 223 Cholesterol Level 156 LDL Cholesterol 70 HDL Cholesterol 41.6 Cholesterol/HDL Ratio 3.75 Lipase 97 Valproic Acid (Depakene) Level 26 Date/Time Source Procedure Growth Status 01/13/18 10:56 Blood Peripheral Aerobic Blood Culture - Final NO GROWTH IN 5 DAYS Complete 01/13/18 10:56 Blood Peripheral Anaerobic Blood Culture - Final NO GROWTH IN 5 DAYS Complete 01/13/18 17:15 Urine Catheterized Urine Urine Culture - Final Leticia Parapsilosis Complete Radiology Last 48 hours Impressions Abdomen/Pelvis CT 01/11/18 0305 Signed Impressions: Service Date/Time: Thursday, January 11, 2018 04:57 - CONCLUSION: 1. Abnormal pancreas diagnostic of acute pancreatitis. There is peripancreatic inflammation and a small volume of free fluid in the abdomen and pelvis. No pancreatic necrosis or pancreatitis associated complications are currently present. 2. Small stones are present within the gallbladder. There is no bile duct dilatation. 3. There are multiple bilateral renal lesions which are incompletely characterized on this study and could represent solid renal lesions or complex cysts. These should be further evaluation once the patient's condition permits. These ideally should be further evaluated with renal protocol MRI with and without intravenous contrast. 4. Nonacute findings include nonobstructing bilateral renal stones and moderate atherosclerotic disease. Mono Wesley MD Chest X-Ray 01/11/18 0000 Signed Impressions: Service Date/Time: Thursday, January 11, 2018 09:33 - CONCLUSION: No acute cardiopulmonary disease. Fabián Flores Jr., MD Cardiovascular: Regular Lungs: Clear Abdomen: Other (obese abdomen; distended ) Extremities: Other (moderate generalized edema ) A/P Assessment and Plan 62 year old male with gallstone pancreatitis -Now intubated -Monitor liver enzymes and lipase---continue to improve -Pain control -Will continue to follow for timing of laparoscopic cholecystectomy --delayed now due to respiratory failure Attending Statement The exam, history, and the medical decision-making described in the above note were completed with the assistance of the mid-level provider. I reviewed and agree with the findings presented. I attest that I had a [id number] encounter with the patient on the same day, and personally performed and documented my assessment and findings in the medical record. patient with GS pancreatitis intubated not a candidate for surgery at this time, will need to be significantly more stable prior to lap melba d/w family at bedside will follow Caty Pleitez/First Ken LARA Jan 18, 2018 16:36 Ernesto Tinajero MD Jan 18, 2018 23:54
--- NOTE | 2018-01-18 17:27 | RADRPT ---
EXAM DATE/TIME: 01/18/2018 14:43 [facility] COMPARISON: No previous studies available for comparison. INDICATIONS : CVA. MEDICAL HISTORY : Diabetes mellitus type 2. Chronic obstructive pulmonary disease. Renal calculi. SURGICAL HISTORY : Left ankle surgery. ENCOUNTER: Initial ACUITY: 2 weeks PAIN SCORE: Nonresponsive. LOCATION: head TECHNIQUE: Multiplanar, multisequence MRI of the brain was performed without contrast. FINDINGS: CEREBRUM: The ventricles are normal for age. No evidence of midline shift, mass lesion, hemorrhage or acute in farction. No extraaxial fluid collections are seen. The pituitary gland and suprasellar cistern are normal in configuration. WHITE MATTER: No significant signal abnormalities are seen in the white matter. POSTERIOR FOSSA: The cerebellum and brainstem are intact. The 4th ventricle is midline. The cerebellopontine angle is unremarkable. The cerebellar tonsils are normal in position. DIFFUSION IMAGING: No focal areas of restricted diffusion are seen. No evidence of acute infarction. EXTRACRANIAL: The visualized portions of the orbits and paranasal sinuses are unremarkable. There is fluid filling the mastoid air cells bilaterally. CONCLUSION: 1. There is fluid filling the mastoid air cells. 2. No acute intracranial abnormality is identified. Darren Reardon MD on January 18, 2018 at 16:51 Board Certified Radiologist. This report was verified electronically.
[2018-01-18] MEDS: MICAFUNGIN INJ 100 MG in SODIUM CHLORIDE 0.9% INJ 100 ML IV SCH (17:52)
--- NOTE | 2018-01-18 18:02 | MB ---
cc: Martin Aquino MD DATE OF CONSULT: 01/18/2018 REFERRING PHYSICIAN: Trey Patel MD REASON FOR CONSULTATION: Patient with symptomatic candiduria. Recurrent sepsis. Assist with antifungal antibiotic coverage. HISTORY OF PRESENT ILLNESS: This is a 62-year-old white male who was admitted to the hospital after presenting to the emergency department on 01/11 with chest pain. Patient was noted to have epigastric abdominal pain with nausea and vomiting, which started prior to arriving to the emergency department. Patient's notes that he was having episodes of vomiting on the day prior. She felt that he might have developed food poisoning after they went out and ate at a friend's home. Patient was evaluated and eventually found to have acute pancreatitis. A CT scan of the abdomen and pelvis revealed abnormal pancreas, diagnostic of acute pancreatitis. The patient has been undergoing management under the care of critical care medicine. He had urinalysis on 01/11, which showed 34 white cells and the culture came back showing Leticia parapsilosis and Staph epidermitis. The colony count of the Leticia parapsilosis was 25-50,000. He has been on a ventilator and the white blood cell count has been elevated. The white count was 20,000 on admission and came down to 12,000 yesterday and then back up to 14,000 today. Repeat urine culture shows Leticia parapsilosis with a colony count of 50-75,000 colonies. The patient has a Elliott catheter in place. Blood cultures from 01/13 have no growth. Patient is sedated, on the ventilator. Patient was intubated yesterday. He had low-grade fever with temperature of 100.2 degrees earlier today. The last temperature elevation prior to that was 100.2 degrees on 01/14. Patient's notes that he drinks alcohol socially. He has had no prior history of pancreatitis. No history of prior urinary tract infections. PAST MEDICAL HISTORY: COPD, diabetes mellitus, neuropathy, kidney stones, history of kidney stone extraction. ALLERGIES: NO KNOWN DRUG ALLERGIES. MEDICATIONS: Lactulose, vitamin D3, vitamin B12, folate, Theragran, inhaled albuterol, methylprednisolone, Diflucan, Reglan, insulin, Daliresp, Celexa, Depakote, piperacillin/tazobactam, Pepcid, Lovenox. SOCIAL HISTORY: No tobacco. Patient quit smoking cigarettes 10 years ago. Social alcohol use. No illicit drugs. FAMILY HISTORY: Noncontributory. REVIEW OF SYSTEMS: Unable to obtain since patient is on the ventilator. PHYSICAL EXAMINATION: GENERAL: This is a moderately obese male who is on the ventilator and sedated. VITAL SIGNS: Temperature 98.9, BP 130/90, heart rate 96. Patient on the ventilator. HEENT: Unable to fully assess since the patient cannot cooperate. Oropharynx, moist mucosa. NECK: No swelling, no adenopathy. LUNGS: Decreased clear breath sounds. HEART: Regular S1 and S2 without audible murmurs. ABDOMEN: Obese, soft, tympanic on percussion. Scant bowel sounds. RECTAL: Not performed. EXTREMITIES: No clubbing, cyanosis or edema. SKIN: No rash. NEUROLOGIC: Unable to assess. PSYCHIATRIC: Unable to assess. LABORATORY DATA: WBC 14.0, platelets 203, hemoglobin 12.3, 75% neutrophils, 15% bands. Creatinine 1.29, BUN 32, sodium 147. LFTs show AST of 43, ALT 73, lipase 97. Lipase on 01/13 was 498. Hepatitis A, B and C serologies negative. IMPRESSION: 1. Candiduria. 2. Acute pancreatitis. 3. Acute respiratory failure. 4. Leukocytosis likely secondary to pancreatitis. RECOMMENDATIONS: 1. Continue piperacillin/tazobactam. 2. Discontinue Diflucan. 3. Begin micafungin. 4. Monitor white blood cell count. 5. Monitor clinical status. Thank you for this consultation. I will follow the patient along with you and make further recommendations upon followup. MD ROLA Clemens/KELLEN , 04:33 PM , 06:01 PM
[2018-01-18] MEDS: POLYETHYLENE GLYCOL 17 GM PKG PO SCH (21:49)
[2018-01-18] MEDS: SENNOSIDES SYRUP 8.8 MG/5 ML CUP PO SCH (21:49)
[2018-01-18] MEDS: DOCUSATE SODIUM 100 MG/10 ML UDC PO SCH (21:49)
[2018-01-19] VITALS (19 sets, daily range): BP systolic 124–155; BP diastolic 71–89; PULSE 87–106; RESP 18–23; TEMP 98.7–100.2; O2SAT 92–97
[2018-01-19] MEDS: PROPOFOL 1000 MG/100 ML INJ 100 ML IV PRN ×6 (02:30→23:23)
[2018-01-19] MEDS: PIPERACIL-TAZO 4.5 GM PREMIX 100 ML IV SCH ×4 (02:30→20:32)
[2018-01-19] MEDS: MIDAZOLAM 100 MG/100 ML INJ 100 ML IV PRN ×2 (03:19→15:06)
[2018-01-19] MEDS: RESP: ALBUTEROL 2.5 MG/IPRATROPIUM 0.5 MG NEB (SCH) NEB ×6 (04:00→23:38)
--- NOTE | 2018-01-19 05:08 | RADRPT ---
EXAM DATE/TIME: 01/19/2018 03:42 [facility] COMPARISON: CHEST SINGLE AP, January 18, 2018, 3:42. INDICATIONS : Short of breath. MEDICAL HISTORY : Chronic obstructive pulmonary disease. Gastroesophageal reflux disease. Diabetes. SURGICAL HISTORY : None. ENCOUNTER: Subsequent ACUITY: 1 week PAIN SCORE: 0/10 LOCATION: Bilateral chest FINDINGS: 2 portable frontal views of the chest are limited by the patient's body habitus. Bibasilar infiltrate s are slightly more pronounced. No gross effusions. Heart is mildly enlarged. The catheter overlies t he left chest. Tip of the endotracheal tube 3 cm proximal to [place]. Nasogastric tube coiled in the f undus. CONCLUSION: 1. Limited study by the patient's body habitus. 2. Some progression in the bibasilar infiltrates. 3. Cardiomegaly. Fabián Flores Jr., MD on January 19, 2018 at 5:06 Board Certified Radiologist. This report was verified electronically.
[2018-01-19] MEDS: FREE WATER G-TUBE SCH ×4 (05:10→23:23)
[2018-01-19] MEDS: ARTIFICIAL TEARS OPTH SOLN 15 ML BTL EACH EYE SCH ×3 (05:10→20:32)
[2018-01-19] MEDS: INSULIN NovoLIN REGULAR SUPPLEMENTAL SCALE SQ SCH ×4 (05:10→23:23)
[2018-01-19] MEDS: fentaNYL DRIP 250 ML IV PRN ×2 (05:58→15:55)
[2018-01-19 07:06] LABS: AUTOMATED NEUTROPHIL # 13.5 TH/MM3 (1.8-7.7); HEMATOCRIT 37.1 % (39.0-51.0); LYMPH % 1.7 % (9.0-44.0); LYMPHOCYTE # 0.3 TH/MM3 (1.0-4.8); MEAN CELL VOLUME 86.5 FL (80.0-100.0); MEAN CORPUSCULAR HEMOGLOBIN 27.8 PG (27.0-34.0); MEAN CORPUSCULAR HGB CONC 32.2 % (32.0-36.0); MEAN PLATELET VOLUME 9.2 FL (7.0-11.0); MONO % 4.4 % (0.0-8.0); MONOCYTE # 0.6 TH/MM3 (0-0.9); NEUT % 93.9 % (16.0-70.0); PLATELET COUNT 219 TH/MM3 (150-450); RED BLOOD COUNT 4.29 MIL/MM3 (4.50-5.90); RED CELL DISTRIBUTION WIDTH 17.3 % (11.6-17.2); WHITE BLOOD COUNT 14.4 TH/MM3 (4.0-11.0)
[2018-01-19 07:27] LABS: ALBUMIN 2.1 GM/DL (3.4-5.0); AST (GOT) 27 U/L (15-37); BICARBONATE 30.2 MEQ/L (21.0-32.0); BLOOD UREA NITROGEN 34 MG/DL (7-18); CALCIUM 8.6 MG/DL (8.5-10.1); CHLORIDE 110 MEQ/L (98-107); CREATININE 1.32 MG/DL (0.60-1.30); GLOMERULAR FILTRATION RATE 55 ML/MIN (>89); GLUCOSE,RANDOM 249 MG/DL (74-106); MAGNESIUM 2.1 MG/DL (1.5-2.5); SODIUM (NA) 150 MEQ/L (136-145)
[2018-01-19 07:28] LABS: ALT (GPT) 57 U/L (12-78); PHOSPHORUS 2.5 MG/DL (2.5-4.9)
[2018-01-19 07:31] LABS: ALKALINE PHOSPHATASE 79 U/L (45-117); TOTAL BILIRUBIN ADULT 0.6 MG/DL (0.2-1.0)
[2018-01-19] MEDS: DOCUSATE SODIUM 100 MG/10 ML UDC PO SCH ×2 (08:04→20:32)
[2018-01-19] MEDS: MULTIVITAMIN TAB PO SCH (08:04)
[2018-01-19] MEDS: SENNOSIDES SYRUP 8.8 MG/5 ML CUP PO SCH ×2 (08:04→20:32)
[2018-01-19] MEDS: LACTULOSE SYRUP 20 GM/30 ML CUP PO SCH ×4 (08:04→20:32)
[2018-01-19] MEDS: CHOLECALCIFEROL (VIT D3) 1000 UNIT TAB PO SCH (08:04)
[2018-01-19] MEDS: CHLORHEXIDINE 0.12% (ORAL KIT) 15 ML CUP MT SCH ×2 (08:05→20:32)
[2018-01-19] MEDS: FOLIC ACID 1 MG TAB PO SCH (08:05)
[2018-01-19] MEDS: ROFLUMILAST 500 MCG TAB PO SCH (08:05)
[2018-01-19] MEDS: POLYETHYLENE GLYCOL 17 GM PKG PO SCH ×2 (08:05→20:32)
[2018-01-19] MEDS: FAMOTIDINE 20 MG/2 ML VIAL IV PUSH SCH ×2 (08:05→20:33)
[2018-01-19] MEDS: CYANOCOBALAMIN 1,000 MCG TAB PO SCH (08:05)
[2018-01-19] MEDS: THIAMINE HCL 100 MG TAB PO SCH (08:05)
[2018-01-19] MEDS: DIVALPROEX DR 500 MG TABEC PO SCH ×2 (08:05→20:33)
[2018-01-19] MEDS: RESP: BUDESONIDE 0.5 MG/2 ML NEB NEB SCH ×2 (08:29→21:03)
[2018-01-19] MEDS ORDERED: POTASSIUM CHLORIDE 20 MEQ PWD PACKET PO ONE (09:00)
[2018-01-19] MEDS ORDERED: POTASSIUM CHLORIDE INJ 30 MEQ in SODIUM CHLORIDE 0.9% INJ 100 ML IV-CENTRAL ONE (09:00)
[2018-01-19] MEDS: CITALOPRAM HYDROBROMIDE 40 MG TAB PO SCH (09:46)
[2018-01-19] MEDS: SODIUM CHLORIDE 0.9% FLUSH 10 ML FLUSH IV FLUSH SCH ×2 (09:49→20:37)
[2018-01-19] MEDS: ENOXAPARIN SODIUM 40 MG/0.4 ML SYRINGE SQ SCH (11:42)
[2018-01-19] MEDS: methylPREDNISolone SOD SUCC 40 MG/1 ML VIAL IV PUSH SCH ×2 (11:43→23:28)
--- NOTE | 2018-01-19 12:06 | HHI.CCPN ---
Subjective Remarks/Hospital Course Patient is a 62-year-old male with past medical history of COPD, on 2 L home oxygen nocturnally, diabetes mellitus type 2, renal stones who was admitted to [facility] on 01/11 under hospitalist service for acute pancreatitis. He had a CT scan of the abdomen and pelvis which showed findings compatible with acute pancreatitis. There was no evidence of any pancreatic necrosis. Small stones present within the gallbladder. No bile duct dilatation seen. In addition, the patient has nonobstructing bilateral renal stones. He has been seen by GI and general surgery service for possible laparoscopic cholecystectomy. He is scheduled to undergo MRCP today per GI's recommendations. Patient was placed on BiPAP for acute hypercapnic respiratory acidosis and his last ABG from this morning showed a pH of 7.29, CO2 58, PaO2 87 , bicarb 26, sats 93% on BiPAP 18/5 with 40% FIO2. Chest x-ray from this morning showed underinflation and bibasilar airspace opacities which would represent atelectasis or airspace consolidation. He was started on IV steroids yesterday. When seen, patient remains on BiPAP. He states that he isfeeling overall better compared to when he was admitted. He quit smoking 10 years ago. He denies any worsening shortness of breath, chest pain, cough, or any edema of lower extremities. He spiked a fever with a temperature of 101.2 last night. 01/14 Patient remains on BIPAP with 40% FIO2. Afebrile. Awake and alert. Lipase now is within normal range however renal function is declining with Cr: 1.96 from 1.84 01/15 No events overnight. On BIPAP 18/5 with 40% FIO2. Tmax 100.2 yesterday 01/16 Was off Bipap part of yesterday but went back on around 3 pm and has remained on Bipap. He becomes agitated intermittently and appears to be having urinary retention with overflow incontinence. Placing Elliott. He removed Bipap and sats were 77% on RA. He is asking to eat, denies abd pain/n/v/ CP. No BM since 01/10. Daughter at bedside requesting something for his agitation. 01/17: Patient on BiPAP and extremely agitated. Not keeping mask on. Desaturations once BiPAP removed. Decision made to emergently intubated for airway protection. 01/18: T-max 100.2. Tolerating trickle feeds at 20 cc an hour with Glucerna 1.5. No bowel movement for several days. Aggressive bowel regimen initiated. Subjective: 01/19: Remains on ventilator FiO2 40% on 3 medications for sedation/analgesia. One large bowel movement yesterday. Potassium currently being replaced. Objective Vital Signs Date Time Temp Pulse Resp B/P (MAP) Pulse Ox O2 Delivery O2 Flow Rate FiO2 01/19/18 11:49 97 45 01/19/18 10:00 98 01/19/18 08:00 99.6 20 149/80 (103) 01/18/18 07:00 Mechanical Ventilator 01/16/18 20:15 6.00 Intake and Output 01/19/18 01/19/18 01/20/18 08:00 16:00 00:00 Intake Total 1338 ml 100 ml Output Total 950 ml Balance 388 ml 100 ml Result Diagram: 01/19/18 0548 01/19/18 0548 Other Results Microbiology Date/Time Source Procedure Growth Status 01/18/18 19:57 Blood Peripheral Aerobic Blood Culture - Preliminary NO GROWTH IN 1 DAY Resulted 01/18/18 19:57 Blood Peripheral Anaerobic Blood Culture - Preliminary NO GROWTH IN 1 DAY Resulted 01/13/18 17:15 Urine Catheterized Urine Urine Culture - Final Leticia Parapsilosis Complete Imaging Last Impressions Chest X-Ray 01/19/18 0600 Signed Impressions: Service Date/Time: Friday, January 19, 2018 03:42 - CONCLUSION: 1. Limited study by the patient's body habitus. 2. Some progression in the bibasilar infiltrates. 3. Cardiomegaly. Fabián Flores Jr., MD Brain MRI 01/18/18 0000 Signed Impressions: Service Date/Time: Thursday, January 18, 2018 14:43 - CONCLUSION: 1. There is fluid filling the mastoid air cells. 2. No acute intracranial abnormality is identified. Darren Reardon MD Abdomen X-Ray 01/18/18 0000 Signed Impressions: Service Date/Time: Thursday, January 18, 2018 12:58 - CONCLUSION: There is mild gaseous distention of the large bowel. Reid Collier MD Abdomen/Pelvis CT 01/11/18 0305 Signed Impressions: Service Date/Time: Thursday, January 11, 2018 04:57 - CONCLUSION: 1. Abnormal pancreas diagnostic of acute pancreatitis. There is peripancreatic inflammation and a small volume of free fluid in the abdomen and pelvis. No pancreatic necrosis or pancreatitis associated complications are currently present. 2. Small stones are present within the gallbladder. There is no bile duct dilatation. 3. There are multiple bilateral renal lesions which are incompletely characterized on this study and could represent solid renal lesions or complex cysts. These should be further evaluation once the patient's condition permits. These ideally should be further evaluated with renal protocol MRI with and without intravenous contrast. 4. Nonacute findings include nonobstructing bilateral renal stones and moderate atherosclerotic disease. Mono Wesley MD Objective Remarks GENERAL: 62year-old male currently orotracheally intubated SKIN: Warm and dry. Port accessed L chest, without erythema HEAD: Normocephalic. EYES: No scleral icterus. No injection or drainage. NECK: Supple, trachea midline. No JVD or lymphadenopathy. CARDIOVASCULAR: Regular rate and rhythm without murmurs, gallops, or rubs. RESPIRATORY: Diminished breath sounds throughout. No wheezing GASTROINTESTINAL: Abdomen morbidly obese, stented and tympanic. Hypoactive bowel sounds appreciated. MUSCULOSKELETAL: Trace nonpitting bilateral lower extremity edema. Positive tinea cruris NEURO: Cranial nerves II through XII grossly intact. Withdraws to pain in all 4 extremities.. Positive gag. Positive corneal reflex. Positive cough. Urinary Catheter: Yes Assessment to: Continue Elliott insert reason: Prolonged Immobilization Vascular Central Line Catheter: No Assessment to: Continue A/P Assessment and Plan Neuro/Psych: Agitated delirium History of depression History of peripheral neuropathy History of EtOH use Currently on propofol drip at 25 mcg/kg/min/midazolam drip at 10 mg an hour and/ fentanyl drips at 250 mcg an hour for sedation/analgesia while intubated Goal of RASS -2 Daily sedation vacation Continue divalproex 500mg PO BID,. Recheck valproic acid in a.m. was 26 01/18 Continue Citalopram 40 mg p.o. daily Check EEG with results pending 01/18 MRI brain no acute CVA/hemorrhage Thiamine, folate and multivitamin daily continue Pulm: Acute hypercapnic respiratory failure with chronic hypoxia COPD PRVC 18/550/11/13/45 Ventilator bundle Albuterol/ipratropium aerosols every 4 hours with albuterol aerosols every 2 hours as needed dyspnea Continue budesonide 0.5/2 1 inhalation twice daily Rofluilast 500 mcg po daily -can be a cause of pancreatitis Currently on methylprednisolone succinate 40 mg IV every 12 hours Chest x-ray in a.m. 01/20 CV: Sinus tachycardia Elevated triglycerides Monitor HR and BP and maintain MAP> 65 mmHg. Free water 200 cc every 6 hours Not requiring vasopressors and/or antihypertensives Renal//FEN/: HAMMAD Urinary retention Bilateral nephrolithiasis Bilateral renal masses -recommend MRI of kidneys with contrast when stable Hypernatremia Hypokalemia Baseline creatinine unknown. Holding furosemide 20 mg daily with acute kidney injury Insert and maintain Elliott. Monitor intake and output. CT abd/pelvis 01/11: No hydronephrosis Replace potassium per ICU electrolyte protocol. Recheck at 1500 hrs. GI Acute pancreatitis Cholelithiasis Constipation Gastroesophageal reflux disease Hypoalbuminemia Monitor LFTs( trending down), Lipase level is now within normal. Currently on famotidine 20 mg IV twice daily. Patient is on omeprazole 20 mg daily at home GI has followed. General surgery following for gallstone pancreatitis. For MRCP when stable from respiratory standpoint. General surgery following regarding timing of laparoscopic cholecystectomy Docusate sodium 100 mg twice daily, senna liquid 8.8 mg by tube twice daily, Add lactulose 30 cc 4 times daily and polythene glycol 17 g twice daily. ID: Candiduria On piperacillin/tazobactam n for gallstone pancreatitis 01/11 #9 Follow up on Blood and urine x from 01/13- NGTD Strep pneumonia and Legionella urinary Ag negative urine cx 01/11: Leticia parapsilosis. Urine culture with persistent yeast 01/13 and patient with urinary symptoms so treated with fluconazole 200 po daily. 3 days. Switched to micafungin 100 milligrams IV daily by infectious disease 01/18 Consult infectious disease appreciated Endo: Diabetes mellitus Lows SSI with Aspart insulin Accu-Cheks q6 hours for glycemic control, Hold home medication metformin 500 mg p.o. daily MSK: Elevated BMI 45.7 Weight loss encouraged GI prophylaxis with famotidine and DVT prophylaxis with SCDs/Enoxaparin 40 mg daily. ACCESS: Port accessed L chest Discussed with patient's and daughter who is at bedside. Level 3 Trey Patel MD Jan 19, 2018 12:06
[2018-01-19] MEDS ORDERED: MAGNESIUM OXIDE 400 MG TAB PO PRN (12:15)
[2018-01-19] MEDS ORDERED: POTASSIUM CHLORIDE 25 MEQ EFFERVESCENT TAB PO PRN (12:15)
[2018-01-19] MEDS ORDERED: POTASSIUM PHOSPHATE MONOBASIC 500 MG TAB PO PRN (12:15)
[2018-01-19] MEDS ORDERED: POTASSIUM PHOSPHATE INJ 30 MMOL in SODIUM CHLOR 0.9% 250 ML INJ 250 ML IV PRN (12:15)
[2018-01-19] MEDS ORDERED: MAGNESIUM SULFATE INJ 2 GM in SODIUM CHLORIDE 0.9% INJ 96 ML IV PRN (12:15)
[2018-01-19] MEDS ORDERED: SODIUM PHOSPHATE INJ 30 MMOL in SODIUM CHLOR 0.9% 250 ML INJ 240 ML IV PRN (12:15)
[2018-01-19] MEDS ORDERED: POTASSIUM CHLOR 40 MEQ PREMIX 100 ML IV PRN ×2 (12:15)
[2018-01-19] MEDS ORDERED: POTASSIUM CHLOR 20 MEQ PREMIX 100 ML IV PRN ×2 (12:15→14:00)
[2018-01-19] MEDS ORDERED: POTASSIUM PHOSPHATE MONOBASIC 500 MG TAB PO/TUBE PRN (12:15)
[2018-01-19] MEDS ORDERED: MAGNESIUM SULFATE INJ 4 GM in SODIUM CHLORIDE 0.9% INJ 92 ML IV PRN (12:15)
--- NOTE | 2018-01-19 12:17 | MG ---
cc: Gilbert Otero MD EEG RECORD NUMBER: [id number] A 62-year-old with mental status changes, intubated and agitated on versed, Diprivan and fentanyl. Generalized 1-3 Hz delta activity with occasional spindles 10-13 microvolts. No driving with photic stimulation seen with the EKG showing sinus rhythm. INTERPRETATION: Moderate to severe encephalopathy which may be pharmacologically induced. Clinical correlation. Gilbert Otero MD MG/DL , 12:10 PM , 12:16 PM
--- NOTE | 2018-01-19 13:37 | HHI.IDPN ---
Note Infectious Disease Note Patient remains on the ventilator. He is on 45% FiO2. Low-grade fever. Good urine output. Tolerating tube feeds. Abdomen remains markedly distended. 62-year-old white male who was admitted to the hospital after presenting to the emergency department on 01/11 with chest pain. Patient was noted to have epigastric abdominal pain with nausea and vomiting, which started prior to arriving to the emergency department. Patient's notes that he was having episodes of vomiting on the day prior to admission. She felt that he might have developed food poisoning after they went out and ate at a friend's home. Patient was evaluated and eventually found to have acute pancreatitis. PAST MEDICAL HISTORY: COPD, diabetes mellitus, neuropathy, kidney stones, history of kidney stone extraction. ALLERGIES: NO KNOWN DRUG ALLERGIES. MEDICATIONS: Current Medications Medications (Trade) Dose Ordered Sig/Kumar Route PRN Reason Start Time Stop Time Status Last Admin Dose Admin Sodium Chloride (NS Flush) 2 ml UNSCH PRN IV FLUSH FLUSH AFTER USING IV ACCESS 01/11/18 06:00 01/16/18 02:03 Sodium Chloride (NS Flush) 2 ml BID IV FLUSH 01/11/18 09:00 01/20/18 06:00 01/19/18 09:49 Ondansetron HCl (Zofran Inj) 4 mg Q6H PRN IVP NAUSEA OR VOMITING 01/11/18 06:00 01/16/18 14:23 Magnesium Hydroxide (Milk Of Magnesia Liq) 30 ml Q12H PRN PO Mild constipation 01/11/18 06:00 Sennosides (Senokot) 17.2 mg Q12H PRN PO Moderate constipation 01/11/18 06:00 Lactulose (Lactulose Liq) 30 ml DAILY PRN PO SEVERE CONSITIPATION 01/11/18 06:00 Famotidine (Pepcid Inj) 20 mg Q12H IV PUSH 01/11/18 09:00 01/19/18 08:05 Enoxaparin Sodium (Lovenox Inj) 40 mg Q24H SQ 01/11/18 12:00 01/19/18 11:42 Citalopram Hydrobromide (CeleXA) 40 mg DAILY PO 01/12/18 09:00 01/19/18 09:46 Divalproex Sodium (Depakote Dr) 500 mg BID PO 01/11/18 21:00 01/19/18 08:05 Roflumilast (Daliresp) 500 mcg DAILY PO 01/12/18 09:00 01/19/18 08:05 Clonidine (Catapres) 0.1 mg Q6H PRN PO SYS BP GREATER THAN 160 MMHG 01/11/18 12:45 Piperacillin Sod/ Tazobactam Sod 100 ml @ 200 mls/hr Q6H IV 01/11/18 21:00 01/19/18 08:06 Miscellaneous Information Patient in critical care unit? Ass... [id number] .XX 01/12/18 20:45 01/12/18 20:45 Dextrose (D50w (Vial) Inj) 50 ml UNSCH PRN IV PUSH HYPOGLYCEMIA-SEE COMMENTS 01/13/18 09:00 Glucagon (Glucagon Inj) 1 mg UNSCH PRN OTHER HYPOGLYCEMIA-SEE COMMENTS 01/13/18 09:00 Insulin Human Regular (NovoLIN R SUPPLEMENTAL SCALE) 1 Q6HR SQ 01/13/18 18:00 01/19/18 11:42 Metoclopramide HCl (Reglan Inj) 5 mg Q8H PRN IV PUSH NAUSEA OR VOMITING 01/14/18 15:15 01/16/18 16:36 Methylprednisolone Sodium Succinate (SoluMEDROL INJ) 40 mg Q12H IV PUSH 01/16/18 12:00 01/19/18 11:43 Chlorhexidine Gluconate (Peridex 0.12% Liq) 15 ml BID@08,20 MT 01/17/18 20:00 01/19/18 08:05 Propofol 100 ml @ 4.71 mls/hr TITRATE PRN IV SEDATION 01/17/18 09:15 01/19/18 11:17 Fentanyl Citrate 250 ml @ 5 mls/hr TITRATE PRN IV SEDATION 01/17/18 10:00 01/19/18 05:58 Norepinephrine Bitartrate 4 mg/ Sodium Chloride 250 ml @ 7.5 mls/hr TITRATE PRN IV Blood pressure management 01/17/18 09:15 Terbutaline Sulfate (Brethine Inj) 1 mg UNSCH PRN SQ For Extravasation 01/17/18 09:15 Midazolam HCl 100 ml @ 2 mls/hr TITRATE PRN IV SEDATION 01/17/18 09:30 01/19/18 03:19 Cholecalciferol (Vitamin D3) 2,000 units DAILY PO 01/18/18 09:00 01/19/18 08:04 Cyanocobalamin (Vitamin B12) 1,000 mcg DAILY PO 01/18/18 09:00 01/19/18 08:05 Albuterol/ Ipratropium (Duoneb Neb) 1 ampule Q4HR NEB NEB 01/17/18 20:00 01/19/18 11:49 Albuterol Sulfate (Albuterol Neb) 2.5 mg Q2HR NEB PRN NEB dyspnea 01/17/18 18:00 Budesonide (Pulmicort Respule Neb) 0.5 mg Q12HR NEB NEB 01/17/18 20:00 01/19/18 08:29 Folic Acid (Folate) 1 mg DAILY PO 01/18/18 09:00 01/19/18 08:05 Multivitamins (Theragran) 1 tab DAILY PO 01/18/18 09:00 01/19/18 08:04 Thiamine HCl (Vitamin B1) 100 mg DAILY PO 01/18/18 09:00 01/19/18 08:05 Docusate Sodium (Colace Liq) 100 mg Q12HR PO 01/18/18 21:00 01/19/18 08:04 Sennosides (Senna Liq) 8.8 mg BID PO 01/18/18 21:00 01/19/18 08:04 Lactulose (Lactulose Liq) 30 ml QID PO 01/18/18 13:00 01/19/18 11:47 Polyethylene Glycol (Miralax) 17 gm BID PO 01/18/18 21:00 01/19/18 08:05 Artificial Tears (Tears Naturale Opth Soln) 1 drop Q8HR EACH EYE 01/18/18 14:00 01/19/18 05:10 Micafungin Sodium 100 mg/Sodium Chloride 100 ml @ 100 mls/hr Q24H IV 01/18/18 17:00 01/18/18 17:52 Water (Free Water) 200 ml Q6HR G-TUBE 01/19/18 12:00 Mineral Oil (Mineral Oil Liq) 15 ml ONCE ONCE NG 01/19/18 14:00 01/19/18 14:01 Potassium Chloride 100 ml @ 50 mls/hr Q2H PRN IV For Potassium 2.8 - 3.2 mEq/L 01/19/18 12:15 Potassium Chloride 100 ml @ 50 mls/hr Q2H PRN IV For Potassium 2.8 - 3.2 mEq/L 01/19/18 14:00 Potassium Bicarb/ Potassium Chloride (K-Lyte Cl Eff) 50 meq UNSCH PRN PO For Potassium 3.3 - 3.5 mEq/L 01/19/18 12:15 Potassium Chloride 100 ml @ 25 mls/hr UNSCH PRN IV For Potassium 3.3 - 3.5 mEq/L 01/19/18 12:15 Potassium Chloride 100 ml @ 50 mls/hr Q2H PRN IV For Potassium 3.3 - 3.5 mEq/L 01/19/18 12:15 Magnesium Sulfate 4 gm/Sodium Chloride 100 ml @ 50 mls/hr UNSCH PRN IV For Magnesium 0.9 - 1.1 mg/dL 01/19/18 12:15 Magnesium Oxide (Mag-Ox) 800 mg UNSCH PRN PO For Magnesium 1.2 - 1.6 mg/dL 01/19/18 12:15 Magnesium Sulfate 2 gm/Sodium Chloride 100 ml @ 50 mls/hr UNSCH PRN IV For Magnesium 1.2 - 1.6 mg/dL 01/19/18 12:15 Potassium Phosphate (K-Phos) 2,000 mg Q4H PRN PO For Phosphorus < 2.5 mg/dL 01/19/18 12:15 Sodium Phosphate 30 mmol/Sodium Chloride 250 ml @ 42 mls/hr UNSCH PRN IV For Phosphorus < 2.5 mg/dL 01/19/18 12:15 Potassium Phosphate (K-Phos) 2,000 mg UNSCH PRN PO/TUBE SEE LABEL COMMENTS 01/19/18 12:15 Potassium Phosphate 30 mmol/ Sodium Chloride 260 ml @ 42 mls/hr UNSCH PRN IV SEE LABEL COMMENTS 01/19/18 12:15 Vital Signs Date Time Temp Pulse Resp B/P (MAP) Pulse Ox O2 Delivery O2 Flow Rate FiO2 01/19/18 12:00 100.2 01/19/18 12:00 101 01/19/18 12:00 100.2 101 20 141/71 (94) 92 01/19/18 12:00 45 01/19/18 11:49 97 45 01/19/18 10:00 98 01/19/18 08:29 92 45 01/19/18 08:00 92 01/19/18 08:00 45 01/19/18 08:00 99.6 92 20 149/80 (103) 93 01/19/18 07:30 92 21 151/83 (105) 92 01/19/18 07:00 93 23 154/84 (107) 92 01/19/18 06:00 87 01/19/18 04:00 45 01/19/18 04:00 87 01/19/18 04:00 99.5 87 19 126/74 (91) 94 01/19/18 02:00 89 01/19/18 00:00 45 01/19/18 00:00 99.3 91 20 124/75 (91) 95 01/19/18 00:00 91 01/18/18 23:53 95 45 01/18/18 22:00 92 01/18/18 21:15 95 45 01/18/18 20:00 45 01/18/18 20:00 99.2 93 19 123/71 (88) 95 01/18/18 20:00 93 01/18/18 18:00 94 01/18/18 17:30 98.9 95 21 130/73 (92) 96 01/18/18 17:15 97 22 95 01/18/18 17:00 98 20 134/76 (95) 92 01/18/18 16:45 96 38 95 01/18/18 16:30 96 22 134/79 (97) 93 01/18/18 16:15 97 22 92 01/18/18 16:00 100 22 130/80 (97) 92 01/18/18 16:00 100 01/18/18 16:00 45 01/18/18 15:35 91 45 01/18/18 14:15 100 100 01/18/18 14:00 95 Laboratory Tests Test 01/18/18 03:35 01/19/18 05:48 White Blood Count 14.0 TH/MM3 14.4 TH/MM3 Red Blood Count 4.43 MIL/MM3 4.29 MIL/MM3 Hemoglobin 12.3 GM/DL 12.0 GM/DL Hematocrit 38.0 % 37.1 % Mean Corpuscular Volume 85.7 FL 86.5 FL Mean Corpuscular Hemoglobin 27.8 PG 27.8 PG Mean Corpuscular Hemoglobin Concent 32.5 % 32.2 % Red Cell Distribution Width 16.8 % 17.3 % Platelet Count 203 TH/MM3 219 TH/MM3 Mean Platelet Volume 9.0 FL 9.2 FL CBC Comment AUTO DIFF DIFF FINAL Differential Total Cells Counted 100 Neutrophils % (Manual) 75 % Band Neutrophils % 15 % Lymphocytes % 3 % Monocytes % 7 % Neutrophils # (Manual) 12.6 TH/MM3 Differential Comment FINAL DIFF MANUAL Platelet Estimate NORMAL Platelet Morphology Comment NORMAL Red Cell Morphology Comment NORMAL Neutrophils (%) (Auto) 93.9 % Lymphocytes (%) (Auto) 1.7 % Monocytes (%) (Auto) 4.4 % Eosinophils (%) (Auto) 0.0 % Basophils (%) (Auto) 0.0 % Neutrophils # (Auto) 13.5 TH/MM3 Lymphocytes # (Auto) 0.3 TH/MM3 Monocytes # (Auto) 0.6 TH/MM3 Eosinophils # (Auto) 0.0 TH/MM3 Basophils # (Auto) 0.0 TH/MM3 Laboratory Tests Test 01/18/18 03:35 01/19/18 05:48 Blood Urea Nitrogen 32 MG/DL 34 MG/DL Creatinine 1.29 MG/DL 1.32 MG/DL Random Glucose 174 MG/DL 249 MG/DL Total Protein 6.1 GM/DL 6.0 GM/DL Albumin 2.1 GM/DL 2.1 GM/DL Calcium Level 8.4 MG/DL 8.6 MG/DL Phosphorus Level 2.7 MG/DL 2.5 MG/DL Magnesium Level 2.2 MG/DL 2.1 MG/DL Alkaline Phosphatase 68 U/L 79 U/L Aspartate Amino Transf (AST/SGOT) 43 U/L 27 U/L Alanine Aminotransferase (ALT/SGPT) 73 U/L 57 U/L Total Bilirubin 0.5 MG/DL 0.6 MG/DL Sodium Level 147 MEQ/L 150 MEQ/L Potassium Level 3.6 MEQ/L 3.1 MEQ/L Chloride Level 108 MEQ/L 110 MEQ/L Carbon Dioxide Level 29.6 MEQ/L 30.2 MEQ/L Anion Gap 9 MEQ/L 10 MEQ/L Estimat Glomerular Filtration Rate 57 ML/MIN 55 ML/MIN Ammonia 19 MCMOL/L Triglycerides Level 223 MG/DL Cholesterol Level 156 MG/DL LDL Cholesterol 70 MG/DL HDL Cholesterol 41.6 MG/DL Cholesterol/HDL Ratio 3.75 RATIO Lipase 97 U/L Microbiology Date/Time Source Procedure Growth Status 01/18/18 19:57 Blood Peripheral Aerobic Blood Culture - Preliminary NO GROWTH IN 1 DAY Resulted 01/18/18 19:57 Blood Peripheral Anaerobic Blood Culture - Preliminary NO GROWTH IN 1 DAY Resulted 01/18/18 19:52 Blood Peripheral Aerobic Blood Culture - Preliminary NO GROWTH IN 1 DAY Resulted 01/18/18 19:52 Blood Peripheral Anaerobic Blood Culture - Preliminary NO GROWTH IN 1 DAY Resulted IMAGING: Chest X-Ray 01/19/18 0600 Signed Impressions: Service Date/Time: Friday, January 19, 2018 03:42 - CONCLUSION: 1. Limited study by the patient's body habitus. 2. Some progression in the bibasilar infiltrates. 3. Cardiomegaly. Fabián Flores Jr., MD Brain MRI 01/18/18 0000 Signed Impressions: Service Date/Time: Thursday, January 18, 2018 14:43 - CONCLUSION: 1. There is fluid filling the mastoid air cells. 2. No acute intracranial abnormality is identified. Darren Reardon MD Abdomen X-Ray 01/18/18 0000 Signed Impressions: Service Date/Time: Thursday, January 18, 2018 12:58 - CONCLUSION: There is mild gaseous distention of the large bowel. Reid Collier MD Abdomen/Pelvis CT 01/11/18 0305 Signed Impressions: Service Date/Time: Thursday, January 11, 2018 04:57 - CONCLUSION: 1. Abnormal pancreas diagnostic of acute pancreatitis. There is peripancreatic inflammation and a small volume of free fluid in the abdomen and pelvis. No pancreatic necrosis or pancreatitis associated complications are currently present. 2. Small stones are present within the gallbladder. There is no bile duct dilatation. 3. There are multiple bilateral renal lesions which are incompletely characterized on this study and could represent solid renal lesions or complex cysts. These should be further evaluation once the patient's condition permits. These ideally should be further evaluated with renal protocol MRI with and without intravenous contrast. 4. Nonacute findings include nonobstructing bilateral renal stones and moderate atherosclerotic disease. Mono Wesley MD PHYSICAL EXAMINATION: GENERAL: On the ventilator and sedated. HEENT: Unable to fully assess since the patient cannot cooperate. Oropharynx, moist mucosa. NECK: No swelling, no adenopathy. LUNGS: Diminished clear breath sounds. HEART: Regular S1 and S2 without audible murmurs. ABDOMEN: Obese, soft, tympanic on percussion. Scant bowel sounds. EXTREMITIES: No clubbing, cyanosis or edema. SKIN: No rash. NEUROLOGIC: Unable to assess. PSYCHIATRIC: Unable to assess. IMPRESSION: 1. Candiduria. 2. Acute pancreatitis. 3. Acute respiratory failure. 4. Leukocytosis likely secondary to pancreatitis. RECOMMENDATIONS: 1. Continue piperacillin/tazobactam. 2. Continue Micafungin. 3. Monitor white blood cell count. 4. Monitor clinical status. Martin Aquino MD Jan 19, 2018 13:37
[2018-01-19] MEDS ORDERED: MINERAL OIL LIQUID 30 ML CUP NG ONE (14:00)
[2018-01-19] MEDS: MICAFUNGIN INJ 100 MG in SODIUM CHLORIDE 0.9% INJ 100 ML IV SCH (16:44)
[2018-01-20] VITALS (10 sets, daily range): BP systolic 133–134; BP diastolic 87–99; PULSE 95–107; RESP 18–24; TEMP 99.6–100.3; O2SAT 93–95
[2018-01-20] MEDS: PROPOFOL 1000 MG/100 ML INJ 100 ML IV PRN ×3 (02:17→08:19)
[2018-01-20] MEDS: MIDAZOLAM 100 MG/100 ML INJ 100 ML IV PRN (02:17)
[2018-01-20] MEDS: PIPERACIL-TAZO 4.5 GM PREMIX 100 ML IV SCH ×2 (02:17→10:07)
[2018-01-20] MEDS: RESP: ALBUTEROL 2.5 MG/IPRATROPIUM 0.5 MG NEB (SCH) NEB ×3 (03:01→11:41)
[2018-01-20] MEDS: FREE WATER G-TUBE SCH (05:11)
[2018-01-20] MEDS: ARTIFICIAL TEARS OPTH SOLN 15 ML BTL EACH EYE SCH ×2 (05:12→13:26)
--- NOTE | 2018-01-20 05:18 | RADRPT ---
EXAM DATE/TIME: 01/20/2018 03:54 [facility] COMPARISON: CHEST SINGLE AP, January 19, 2018, 3:42. INDICATIONS : Short of breath. MEDICAL HISTORY : Chronic obstructive pulmonary disease. Gastroesophageal reflux disease. Diabetes. SURGICAL HISTORY : None. ENCOUNTER: Subsequent ACUITY: 1 week PAIN SCORE: 0/10 LOCATION: Bilateral chest FINDINGS: A single portable frontal view the chest is blurred by motion artifact. Patient body habitus limits t he study as well. Bibasilar infiltrates are grossly unchanged. Heart is mildly enlarged. Tip of the e ndotracheal tube is approximately 5 cm cephalad to the [place]. Nasogastric tube and left-sided Port-A -Cath noted. CONCLUSION: Limited study. Grossly unchanged basilar infiltrates. Fabián Flores Jr., MD on January 20, 2018 at 5:16 Board Certified Radiologist. This report was verified electronically.
[2018-01-20] MEDS: INSULIN NovoLIN REGULAR SUPPLEMENTAL SCALE SQ SCH ×2 (05:21→12:33)
[2018-01-20] MEDS: ONDANSETRON HCL 4 MG/2 ML VIAL IVP PRN (05:22)
[2018-01-20] MEDS: fentaNYL DRIP 250 ML IV PRN (05:27)
[2018-01-20 08:52] LABS: AUTOMATED NEUTROPHIL # 21.4 TH/MM3 (1.8-7.7); BASOPHIL % 0.1 % (0.0-2.0); HEMATOCRIT 43.1 % (39.0-51.0); HEMOGLOBIN 13.4 GM/DL (13.0-17.0); LYMPH % 1.9 % (9.0-44.0); LYMPHOCYTE # 0.4 TH/MM3 (1.0-4.8); MEAN CELL VOLUME 86.6 FL (80.0-100.0); MEAN CORPUSCULAR HGB CONC 31.2 % (32.0-36.0); MEAN PLATELET VOLUME 9.4 FL (7.0-11.0); MONO % 4.9 % (0.0-8.0); MONOCYTE # 1.1 TH/MM3 (0-0.9); NEUT % 93.1 % (16.0-70.0); PLATELET COUNT 220 TH/MM3 (150-450); RED BLOOD COUNT 4.98 MIL/MM3 (4.50-5.90); RED CELL DISTRIBUTION WIDTH 17.5 % (11.6-17.2)
[2018-01-20] MEDS: RESP: BUDESONIDE 0.5 MG/2 ML NEB NEB SCH (09:17)
[2018-01-20 09:28] LABS: ALBUMIN 2.1 GM/DL (3.4-5.0); ALKALINE PHOSPHATASE 89 U/L (45-117); ALT (GPT) 61 U/L (12-78); AST (GOT) 33 U/L (15-37); BICARBONATE 29.4 MEQ/L (21.0-32.0); BLOOD UREA NITROGEN 51 MG/DL (7-18); CALCIUM 9.1 MG/DL (8.5-10.1); CHLORIDE 108 MEQ/L (98-107); CREATININE 1.98 MG/DL (0.60-1.30); GLOMERULAR FILTRATION RATE 35 ML/MIN (>89); GLUCOSE,RANDOM 291 MG/DL (74-106); MAGNESIUM 2.3 MG/DL (1.5-2.5); PHOSPHORUS 4.5 MG/DL (2.5-4.9); SODIUM (NA) 147 MEQ/L (136-145); TOTAL BILIRUBIN ADULT 0.5 MG/DL (0.2-1.0); TOTAL PROTEIN 6.5 GM/DL (6.4-8.2)
[2018-01-20] MEDS: CYANOCOBALAMIN 1,000 MCG TAB PO SCH (10:04)
--- NOTE | 2018-01-20 10:04 | HHI.PR ---
cc: Ernesto Tinajero MD Subjective Subjective Notes Intubated/Sedated DEANNA Aponte at bedside--- reports patient has high residuals asked to put NGT to [facility] -- I agree Objective Vitals/I&O Vital Signs Date Time Temp Pulse Resp B/P (MAP) Pulse Ox O2 Delivery O2 Flow Rate FiO2 01/20/18 09:18 94 50 01/20/18 06:00 95 01/20/18 04:00 99.6 24 133/99 (110) 01/18/18 07:00 Mechanical Ventilator 01/16/18 20:15 6.00 Labs Laboratory Tests Test 01/19/18 16:29 01/20/18 07:06 Potassium Level 3.6 3.8 White Blood Count 23.0 Red Blood Count 4.98 Hemoglobin 13.4 Hematocrit 43.1 Mean Corpuscular Volume 86.6 Mean Corpuscular Hemoglobin 27.0 Mean Corpuscular Hemoglobin Concent 31.2 Red Cell Distribution Width 17.5 Platelet Count 220 Mean Platelet Volume 9.4 Neutrophils (%) (Auto) 93.1 Lymphocytes (%) (Auto) 1.9 Monocytes (%) (Auto) 4.9 Eosinophils (%) (Auto) 0.0 Basophils (%) (Auto) 0.1 Neutrophils # (Auto) 21.4 Lymphocytes # (Auto) 0.4 Monocytes # (Auto) 1.1 Eosinophils # (Auto) 0.0 Basophils # (Auto) 0.0 CBC Comment DIFF FINAL Differential Comment Blood Urea Nitrogen 51 Creatinine 1.98 Random Glucose 291 Total Protein 6.5 Albumin 2.1 Calcium Level 9.1 Phosphorus Level 4.5 Magnesium Level 2.3 Alkaline Phosphatase 89 Aspartate Amino Transf (AST/SGOT) 33 Alanine Aminotransferase (ALT/SGPT) 61 Total Bilirubin 0.5 Sodium Level 147 Chloride Level 108 Carbon Dioxide Level 29.4 Anion Gap 10 Estimat Glomerular Filtration Rate 35 Amylase Level 319 Lipase 169 Date/Time Source Procedure Growth Status 01/18/18 19:57 Blood Peripheral Aerobic Blood Culture - Preliminary NO GROWTH IN 1 DAY Resulted 01/18/18 19:57 Blood Peripheral Anaerobic Blood Culture - Preliminary NO GROWTH IN 1 DAY Resulted 01/13/18 17:15 Urine Catheterized Urine Urine Culture - Final Leticia Parapsilosis Complete Radiology Last 48 hours Impressions Abdomen/Pelvis CT 01/11/18 0305 Signed Impressions: Service Date/Time: Thursday, January 11, 2018 04:57 - CONCLUSION: 1. Abnormal pancreas diagnostic of acute pancreatitis. There is peripancreatic inflammation and a small volume of free fluid in the abdomen and pelvis. No pancreatic necrosis or pancreatitis associated complications are currently present. 2. Small stones are present within the gallbladder. There is no bile duct dilatation. 3. There are multiple bilateral renal lesions which are incompletely characterized on this study and could represent solid renal lesions or complex cysts. These should be further evaluation once the patient's condition permits. These ideally should be further evaluated with renal protocol MRI with and without intravenous contrast. 4. Nonacute findings include nonobstructing bilateral renal stones and moderate atherosclerotic disease. Mono Wesley MD Chest X-Ray 01/11/18 0000 Signed Impressions: Service Date/Time: Thursday, January 11, 2018 09:33 - CONCLUSION: No acute cardiopulmonary disease. Fabián Flores Jr., MD Cardiovascular: Regular Lungs: Clear Abdomen: Other (distended ) Extremities: Other (moderate generalized edema ) A/P Assessment and Plan 62 year old male with gallstone pancreatitis -Intubated ---- management per CCM -High TF residuals--- connect to [facility] -If not able to tolerate TF may need TPN -Monitor liver enzymes and lipase---continue to improve -Pain control -Will continue to follow for timing of laparoscopic cholecystectomy --delayed now due to respiratory failure Attending Statement The exam, history, and the medical decision-making described in the above note were completed with the assistance of the mid-level provider. I reviewed and agree with the findings presented. I attest that I had a [id number] encounter with the patient on the same day, and personally performed and documented my assessment and findings in the medical record. patient intubated, respiratory failure pancreatitis seems to be slowly improving consider TPN or post pyloric tube feeds Caty Pleitez CHERRY GROWER/Dock Grader CHERRY GROWER Jan 20, 2018 10:04 Ernesto Tinajero MD Jan 20, 2018 15:43
[2018-01-20] MEDS: FOLIC ACID 1 MG TAB PO SCH (10:05)
[2018-01-20] MEDS: CHOLECALCIFEROL (VIT D3) 1000 UNIT TAB PO SCH (10:05)
[2018-01-20] MEDS: MULTIVITAMIN TAB PO SCH (10:05)
[2018-01-20] MEDS: DIVALPROEX DR 500 MG TABEC PO SCH (10:05)
[2018-01-20] MEDS: ROFLUMILAST 500 MCG TAB PO SCH (10:05)
[2018-01-20] MEDS: POLYETHYLENE GLYCOL 17 GM PKG PO SCH (10:05)
[2018-01-20] MEDS: THIAMINE HCL 100 MG TAB PO SCH (10:05)
[2018-01-20] MEDS: LACTULOSE SYRUP 20 GM/30 ML CUP PO SCH ×2 (10:06→13:25)
[2018-01-20] MEDS: DOCUSATE SODIUM 100 MG/10 ML UDC PO SCH (10:06)
[2018-01-20] MEDS: FAMOTIDINE 20 MG/2 ML VIAL IV PUSH SCH (10:06)
[2018-01-20] MEDS: SENNOSIDES SYRUP 8.8 MG/5 ML CUP PO SCH (10:06)
[2018-01-20] MEDS: CHLORHEXIDINE 0.12% (ORAL KIT) 15 ML CUP MT SCH (10:07)
[2018-01-20] MEDS: METOCLOPRAMIDE HCL 10 MG/2 ML VIAL IV PUSH PRN (10:07)
[2018-01-20] MEDS: CITALOPRAM HYDROBROMIDE 40 MG TAB PO SCH (10:13)
--- NOTE | 2018-01-20 11:59 | HHI.IDPN ---
Note Infectious Disease Note Patient remains on the ventilator. On 50% FiO2. PEEP of 10. Sedated. Unresponsive. Low-grade fever. Abdomen remains markedly distended. 62-year-old white male who was admitted to the hospital after presenting to the emergency department on 01/11 with chest pain. Patient was noted to have epigastric abdominal pain with nausea and vomiting, which started prior to arriving to the emergency department. Patient's notes that he was having episodes of vomiting on the day prior to admission. She felt that he might have developed food poisoning after they went out and ate at a friend's home. Patient was evaluated and eventually found to have acute pancreatitis. PAST MEDICAL HISTORY: COPD, diabetes mellitus, neuropathy, kidney stones, history of kidney stone extraction. ALLERGIES: NO KNOWN DRUG ALLERGIES. MEDICATIONS: Current Medications Medications (Trade) Dose Ordered Sig/Kumar Route PRN Reason Start Time Stop Time Status Last Admin Dose Admin Sodium Chloride (NS Flush) 2 ml UNSCH PRN IV FLUSH FLUSH AFTER USING IV ACCESS 01/11/18 06:00 01/16/18 02:03 Ondansetron HCl (Zofran Inj) 4 mg Q6H PRN IVP NAUSEA OR VOMITING 01/11/18 06:00 01/20/18 05:22 Magnesium Hydroxide (Milk Of Magnesia Liq) 30 ml Q12H PRN PO Mild constipation 01/11/18 06:00 Sennosides (Senokot) 17.2 mg Q12H PRN PO Moderate constipation 01/11/18 06:00 Lactulose (Lactulose Liq) 30 ml DAILY PRN PO SEVERE CONSITIPATION 01/11/18 06:00 Famotidine (Pepcid Inj) 20 mg Q12H IV PUSH 01/11/18 09:00 01/20/18 10:06 Enoxaparin Sodium (Lovenox Inj) 40 mg Q24H SQ 01/11/18 12:00 01/19/18 11:42 Citalopram Hydrobromide (CeleXA) 40 mg DAILY PO 01/12/18 09:00 01/20/18 10:13 Divalproex Sodium (Depakote Dr) 500 mg BID PO 01/11/18 21:00 01/20/18 10:05 Roflumilast (Daliresp) 500 mcg DAILY PO 01/12/18 09:00 01/20/18 10:05 Clonidine (Catapres) 0.1 mg Q6H PRN PO SYS BP GREATER THAN 160 MMHG 01/11/18 12:45 Piperacillin Sod/ Tazobactam Sod 100 ml @ 200 mls/hr Q6H IV 01/11/18 21:00 01/20/18 10:07 Miscellaneous Information Patient in critical care unit? Ass... [id number] .[id number] 01/12/18 20:45 01/12/18 20:45 Dextrose (D50w (Vial) Inj) 50 ml UNSCH PRN IV PUSH HYPOGLYCEMIA-SEE COMMENTS 01/13/18 09:00 Glucagon (Glucagon Inj) 1 mg UNSCH PRN OTHER HYPOGLYCEMIA-SEE COMMENTS 01/13/18 09:00 Insulin Human Regular (NovoLIN R SUPPLEMENTAL SCALE) 1 Q6HR SQ 01/13/18 18:00 01/20/18 05:21 Metoclopramide HCl (Reglan Inj) 5 mg Q8H PRN IV PUSH NAUSEA OR VOMITING 01/14/18 15:15 01/20/18 10:07 Methylprednisolone Sodium Succinate (SoluMEDROL INJ) 40 mg Q12H IV PUSH 01/16/18 12:00 01/19/18 23:28 Chlorhexidine Gluconate (Peridex 0.12% Liq) 15 ml BID@08,20 MT 01/17/18 20:00 01/20/18 10:07 Propofol 100 ml @ 4.71 mls/hr TITRATE PRN IV SEDATION 01/17/18 09:15 01/20/18 08:19 Fentanyl Citrate 250 ml @ 5 mls/hr TITRATE PRN IV SEDATION 01/17/18 10:00 01/20/18 05:27 Norepinephrine Bitartrate 4 mg/ Sodium Chloride 250 ml @ 7.5 mls/hr TITRATE PRN IV Blood pressure management 01/17/18 09:15 Terbutaline Sulfate (Brethine Inj) 1 mg UNSCH PRN SQ For Extravasation 01/17/18 09:15 Midazolam HCl 100 ml @ 2 mls/hr TITRATE PRN IV SEDATION 01/17/18 09:30 01/20/18 02:17 Cholecalciferol (Vitamin D3) 2,000 units DAILY PO 01/18/18 09:00 01/20/18 10:05 Cyanocobalamin (Vitamin B12) 1,000 mcg DAILY PO 01/18/18 09:00 01/20/18 10:04 Albuterol/ Ipratropium (Duoneb Neb) 1 ampule Q4HR NEB NEB 01/17/18 20:00 01/20/18 11:41 Albuterol Sulfate (Albuterol Neb) 2.5 mg Q2HR NEB PRN NEB dyspnea 01/17/18 18:00 Budesonide (Pulmicort Respule Neb) 0.5 mg Q12HR NEB NEB 01/17/18 20:00 01/20/18 09:17 Folic Acid (Folate) 1 mg DAILY PO 01/18/18 09:00 01/20/18 10:05 Multivitamins (Theragran) 1 tab DAILY PO 01/18/18 09:00 01/20/18 10:05 Thiamine HCl (Vitamin B1) 100 mg DAILY PO 01/18/18 09:00 01/20/18 10:05 Docusate Sodium (Colace Liq) 100 mg Q12HR PO 01/18/18 21:00 01/20/18 10:06 Sennosides (Senna Liq) 8.8 mg BID PO 01/18/18 21:00 01/20/18 10:06 Lactulose (Lactulose Liq) 30 ml QID PO 01/18/18 13:00 01/20/18 10:06 Polyethylene Glycol (Miralax) 17 gm BID PO 01/18/18 21:00 01/20/18 10:05 Artificial Tears (Tears Naturale Opth Soln) 1 drop Q8HR EACH EYE 01/18/18 14:00 01/20/18 05:12 Micafungin Sodium 100 mg/Sodium Chloride 100 ml @ 100 mls/hr Q24H IV 01/18/18 17:00 01/19/18 16:44 Water (Free Water) 200 ml Q6HR G-TUBE 01/19/18 12:00 01/20/18 05:11 Potassium Chloride 100 ml @ 50 mls/hr Q2H PRN IV For Potassium 2.8 - 3.2 mEq/L 01/19/18 12:15 Potassium Chloride 100 ml @ 50 mls/hr Q2H PRN IV For Potassium 2.8 - 3.2 mEq/L 01/19/18 14:00 Potassium Bicarb/ Potassium Chloride (K-Lyte Cl Eff) 50 meq UNSCH PRN PO For Potassium 3.3 - 3.5 mEq/L 01/19/18 12:15 Potassium Chloride 100 ml @ 25 mls/hr UNSCH PRN IV For Potassium 3.3 - 3.5 mEq/L 01/19/18 12:15 Potassium Chloride 100 ml @ 50 mls/hr Q2H PRN IV For Potassium 3.3 - 3.5 mEq/L 01/19/18 12:15 Magnesium Sulfate 4 gm/Sodium Chloride 100 ml @ 50 mls/hr UNSCH PRN IV For Magnesium 0.9 - 1.1 mg/dL 01/19/18 12:15 Magnesium Oxide (Mag-Ox) 800 mg UNSCH PRN PO For Magnesium 1.2 - 1.6 mg/dL 01/19/18 12:15 Magnesium Sulfate 2 gm/Sodium Chloride 100 ml @ 50 mls/hr UNSCH PRN IV For Magnesium 1.2 - 1.6 mg/dL 01/19/18 12:15 Potassium Phosphate (K-Phos) 2,000 mg Q4H PRN PO For Phosphorus < 2.5 mg/dL 01/19/18 12:15 Sodium Phosphate 30 mmol/Sodium Chloride 250 ml @ 42 mls/hr UNSCH PRN IV For Phosphorus < 2.5 mg/dL 01/19/18 12:15 Potassium Phosphate (K-Phos) 2,000 mg UNSCH PRN PO/TUBE SEE LABEL COMMENTS 01/19/18 12:15 Potassium Phosphate 30 mmol/ Sodium Chloride 260 ml @ 42 mls/hr UNSCH PRN IV SEE LABEL COMMENTS 01/19/18 12:15 Vital Signs Date Time Temp Pulse Resp B/P (MAP) Pulse Ox O2 Delivery O2 Flow Rate FiO2 01/20/18 09:18 94 50 01/20/18 06:00 95 01/20/18 04:00 99.6 103 24 133/99 (110) 93 01/20/18 04:00 103 01/20/18 04:00 50 01/20/18 03:02 94 50 01/20/18 02:00 102 01/20/18 00:00 105 01/20/18 00:00 100.3 105 18 134/87 (103) 95 01/20/18 00:00 50 01/19/18 23:39 96 50 01/19/18 22:00 106 01/19/18 21:03 94 50 01/19/18 20:00 100.2 104 18 149/89 (109) 94 01/19/18 20:00 50 01/19/18 20:00 104 01/19/18 18:00 99 01/19/18 18:00 98.7 99 23 155/81 (105) 93 01/19/18 18:00 98.7 01/19/18 17:09 93 50 01/19/18 16:00 50 01/19/18 16:00 100 01/19/18 14:00 100 01/19/18 12:00 100.2 01/19/18 12:00 101 01/19/18 12:00 100.2 101 20 141/71 (94) 92 01/19/18 12:00 45 Laboratory Tests Test 01/19/18 05:48 01/20/18 07:06 White Blood Count 14.4 TH/MM3 23.0 TH/MM3 Red Blood Count 4.29 MIL/MM3 4.98 MIL/MM3 Hemoglobin 12.0 GM/DL 13.4 GM/DL Hematocrit 37.1 % 43.1 % Mean Corpuscular Volume 86.5 FL 86.6 FL Mean Corpuscular Hemoglobin 27.8 PG 27.0 PG Mean Corpuscular Hemoglobin Concent 32.2 % 31.2 % Red Cell Distribution Width 17.3 % 17.5 % Platelet Count 219 TH/MM3 220 TH/MM3 Mean Platelet Volume 9.2 FL 9.4 FL Neutrophils (%) (Auto) 93.9 % 93.1 % Lymphocytes (%) (Auto) 1.7 % 1.9 % Monocytes (%) (Auto) 4.4 % 4.9 % Eosinophils (%) (Auto) 0.0 % 0.0 % Basophils (%) (Auto) 0.0 % 0.1 % Neutrophils # (Auto) 13.5 TH/MM3 21.4 TH/MM3 Lymphocytes # (Auto) 0.3 TH/MM3 0.4 TH/MM3 Monocytes # (Auto) 0.6 TH/MM3 1.1 TH/MM3 Eosinophils # (Auto) 0.0 TH/MM3 0.0 TH/MM3 Basophils # (Auto) 0.0 TH/MM3 0.0 TH/MM3 CBC Comment DIFF FINAL DIFF FINAL Differential Comment Laboratory Tests Test 01/19/18 05:48 01/19/18 16:29 01/20/18 07:06 Blood Urea Nitrogen 34 MG/DL 51 MG/DL Creatinine 1.32 MG/DL 1.98 MG/DL Random Glucose 249 MG/DL 291 MG/DL Total Protein 6.0 GM/DL 6.5 GM/DL Albumin 2.1 GM/DL 2.1 GM/DL Calcium Level 8.6 MG/DL 9.1 MG/DL Phosphorus Level 2.5 MG/DL 4.5 MG/DL Magnesium Level 2.1 MG/DL 2.3 MG/DL Alkaline Phosphatase 79 U/L 89 U/L Aspartate Amino Transf (AST/SGOT) 27 U/L 33 U/L Alanine Aminotransferase (ALT/SGPT) 57 U/L 61 U/L Total Bilirubin 0.6 MG/DL 0.5 MG/DL Sodium Level 150 MEQ/L 147 MEQ/L Potassium Level 3.1 MEQ/L 3.6 MEQ/L 3.8 MEQ/L Chloride Level 110 MEQ/L 108 MEQ/L Carbon Dioxide Level 30.2 MEQ/L 29.4 MEQ/L Anion Gap 10 MEQ/L 10 MEQ/L Estimat Glomerular Filtration Rate 55 ML/MIN 35 ML/MIN Amylase Level 319 U/L Lipase 169 U/L Microbiology Date/Time Source Procedure Growth Status 01/18/18 19:57 Blood Peripheral Aerobic Blood Culture - Preliminary NO GROWTH IN 2 DAYS Resulted 01/18/18 19:57 Blood Peripheral Anaerobic Blood Culture - Preliminary NO GROWTH IN 2 DAYS Resulted 01/18/18 19:52 Blood Peripheral Aerobic Blood Culture - Preliminary NO GROWTH IN 2 DAYS Resulted 01/18/18 19:52 Blood Peripheral Anaerobic Blood Culture - Preliminary NO GROWTH IN 2 DAYS Resulted IMAGING: Chest X-Ray 01/20/18 06 Signed Impressions: Service Date/Time: Saturday, January 20, 2018 03:54 - CONCLUSION: Limited study. Grossly unchanged basilar infiltrates. Fabián Flores Jr., MD Chest X-Ray 01/19/18 0600 Signed Impressions: Service Date/Time: Friday, January 19, 2018 03:42 - CONCLUSION: 1. Limited study by the patient's body habitus. 2. Some progression in the bibasilar infiltrates. 3. Cardiomegaly. Fabián Flores Jr., MD Brain MRI 01/18/18 0000 Signed Impressions: Service Date/Time: Thursday, January 18, 2018 14:43 - CONCLUSION: 1. There is fluid filling the mastoid air cells. 2. No acute intracranial abnormality is identified. Darren Reardon MD Abdomen X-Ray 01/18/18 0000 Signed Impressions: Service Date/Time: Thursday, January 18, 2018 12:58 - CONCLUSION: There is mild gaseous distention of the large bowel. Reid Collier MD Abdomen/Pelvis CT 01/11/18 0305 Signed Impressions: Service Date/Time: Thursday, January 11, 2018 04:57 - CONCLUSION: 1. Abnormal pancreas diagnostic of acute pancreatitis. There is peripancreatic inflammation and a small volume of free fluid in the abdomen and pelvis. No pancreatic necrosis or pancreatitis associated complications are currently present. 2. Small stones are present within the gallbladder. There is no bile duct dilatation. 3. There are multiple bilateral renal lesions which are incompletely characterized on this study and could represent solid renal lesions or complex cysts. These should be further evaluation once the patient's condition permits. These ideally should be further evaluated with renal protocol MRI with and without intravenous contrast. 4. Nonacute findings include nonobstructing bilateral renal stones and moderate atherosclerotic disease. Mono Wesley MD PHYSICAL EXAMINATION: GENERAL: On the ventilator and sedated. HEENT: Unable to fully assess. No icterus. Oropharynx, moist mucosa. NECK: No swelling, no adenopathy. LUNGS: Bilateral basilar rhonchi. HEART: Regular S1 and S2 without audible murmurs. ABDOMEN: Obese, soft, distended, tympanic on percussion. Scant bowel sounds. EXTREMITIES: No clubbing, cyanosis or edema. SKIN: No rash. NEUROLOGIC: Unable to assess. PSYCHIATRIC: Unable to assess. IMPRESSION: 1. Candiduria. 2. Acute pancreatitis. 3. Acute respiratory failure. 4. Leukocytosis likely secondary to pancreatitis. WBC higher. RECOMMENDATIONS: 1. Continue piperacillin/tazobactam. 2. Continue Micafungin. 3. Monitor white blood cell count. 4. Monitor blood cultures and obtain additional blood cultures if the temperature spikes close to or above 101. 5. Monitor clinical status. 6. Observe for new sign of infection. May need to repeat CT scan of the abdomen if white blood cell count continues to climb. Martin Aquino MD Jan 20, 2018 11:59
[2018-01-20] MEDS: methylPREDNISolone SOD SUCC 40 MG/1 ML VIAL IV PUSH SCH (13:25)
[2018-01-20] MEDS: ENOXAPARIN SODIUM 40 MG/0.4 ML SYRINGE SQ SCH (13:25)
[2018-01-20] MEDS ORDERED: MINERAL OIL EMULSION 55% PO ONE (14:00)
[2018-01-20] MEDS ORDERED: SODIUM CHLOR 0.9% 1000 ML INJ 1,000 ML IV ONE (14:00)
[2018-01-20] MEDS ORDERED: METHYLNALTREXONE BROMIDE 12 MG/0.6 ML VIAL SQ ONE (14:00)
[2018-01-20] MEDS ORDERED: GLYCERIN ADULT 2 GM SUPP RECTAL ONE (14:00)
[2018-01-20] MEDS ORDERED: ALBUMIN 5% INJ 500 ML IV ONE (14:00)
--- NOTE | 2018-01-20 14:31 | HHI.CCPN ---
Subjective Remarks/Hospital Course Patient is a 62-year-old male with past medical history of COPD, on 2 L home oxygen nocturnally, diabetes mellitus type 2, renal stones who was admitted to [facility] on 01/11 under hospitalist service for acute pancreatitis. He had a CT scan of the abdomen and pelvis which showed findings compatible with acute pancreatitis. There was no evidence of any pancreatic necrosis. Small stones present within the gallbladder. No bile duct dilatation seen. In addition, the patient has nonobstructing bilateral renal stones. He has been seen by GI and general surgery service for possible laparoscopic cholecystectomy. He is scheduled to undergo MRCP today per GI's recommendations. Patient was placed on BiPAP for acute hypercapnic respiratory acidosis and his last ABG from this morning showed a pH of 7.29, CO2 58, PaO2 87 , bicarb 26, sats 93% on BiPAP 18/5 with 40% FIO2. Chest x-ray from this morning showed underinflation and bibasilar airspace opacities which would represent atelectasis or airspace consolidation. He was started on IV steroids yesterday. When seen, patient remains on BiPAP. He states that he isfeeling overall better compared to when he was admitted. He quit smoking 10 years ago. He denies any worsening shortness of breath, chest pain, cough, or any edema of lower extremities. He spiked a fever with a temperature of 101.2 last night. 01/14 Patient remains on BIPAP with 40% FIO2. Afebrile. Awake and alert. Lipase now is within normal range however renal function is declining with Cr: 1.96 from 1.84 01/15 No events overnight. On BIPAP 18/5 with 40% FIO2. Tmax 100.2 yesterday 01/16 Was off Bipap part of yesterday but went back on around 3 pm and has remained on Bipap. He becomes agitated intermittently and appears to be having urinary retention with overflow incontinence. Placing Elliott. He removed Bipap and sats were 77% on RA. He is asking to eat, denies abd pain/n/v/ CP. No BM since 01/10. Daughter at bedside requesting something for his agitation. 01/17: Patient on BiPAP and extremely agitated. Not keeping mask on. Desaturations once BiPAP removed. Decision made to emergently intubated for airway protection. 01/18: T-max 100.2. Tolerating trickle feeds at 20 cc an hour with Glucerna 1.5. No bowel movement for several days. Aggressive bowel regimen initiated. 01/19: Remains on ventilator FiO2 40% on 3 medications for sedation/analgesia. One large bowel movement yesterday. Potassium currently being replaced. Subjective: 01/20: Afebrile. If FiO2 up to 50%. PEEP up to 10. No bowel movement yesterday. Decreased urine output and increasing creatinine and white blood cell count noted. Objective Vital Signs Date Time Temp Pulse Resp B/P (MAP) Pulse Ox O2 Delivery O2 Flow Rate FiO2 01/20/18 09:18 94 50 01/20/18 06:00 95 01/20/18 04:00 99.6 24 133/99 (110) 01/18/18 07:00 Mechanical Ventilator 01/16/18 20:15 6.00 Intake and Output 01/20/18 01/20/18 01/21/18 08:00 16:00 00:00 Intake Total 1320 ml Output Total 675 ml Balance 645 ml Result Diagram: 01/20/18 0706 01/20/18 0706 Other Results Microbiology Date/Time Source Procedure Growth Status 01/18/18 19:57 Blood Peripheral Aerobic Blood Culture - Preliminary NO GROWTH IN 2 DAYS Resulted 01/18/18 19:57 Blood Peripheral Anaerobic Blood Culture - Preliminary NO GROWTH IN 2 DAYS Resulted 01/13/18 17:15 Urine Catheterized Urine Urine Culture - Final Leticia Parapsilosis Complete Imaging Last Impressions Chest X-Ray 01/20/18 0600 Signed Impressions: Service Date/Time: Saturday, January 20, 2018 03:54 - CONCLUSION: Limited study. Grossly unchanged basilar infiltrates. Fabián Flores Jr., MD Brain MRI 01/18/18 0000 Signed Impressions: Service Date/Time: Thursday, January 18, 2018 14:43 - CONCLUSION: 1. There is fluid filling the mastoid air cells. 2. No acute intracranial abnormality is identified. Darren Reardon MD Abdomen X-Ray 01/18/18 0000 Signed Impressions: Service Date/Time: Thursday, January 18, 2018 12:58 - CONCLUSION: There is mild gaseous distention of the large bowel. Reid Collier MD Abdomen/Pelvis CT 01/11/18 0305 Signed Impressions: Service Date/Time: Thursday, January 11, 2018 04:57 - CONCLUSION: 1. Abnormal pancreas diagnostic of acute pancreatitis. There is peripancreatic inflammation and a small volume of free fluid in the abdomen and pelvis. No pancreatic necrosis or pancreatitis associated complications are currently present. 2. Small stones are present within the gallbladder. There is no bile duct dilatation. 3. There are multiple bilateral renal lesions which are incompletely characterized on this study and could represent solid renal lesions or complex cysts. These should be further evaluation once the patient's condition permits. These ideally should be further evaluated with renal protocol MRI with and without intravenous contrast. 4. Nonacute findings include nonobstructing bilateral renal stones and moderate atherosclerotic disease. Mono Wesley MD Objective Remarks GENERAL: 62year-old male currently orotracheally intubated SKIN: Warm and dry. Port accessed L chest, without erythema HEAD: Normocephalic. EYES: No scleral icterus. No injection or drainage. NECK: Supple, trachea midline. No JVD or lymphadenopathy. CARDIOVASCULAR: Regular rate and rhythm without murmurs, gallops, or rubs. RESPIRATORY: Diminished breath sounds throughout. No wheezing GASTROINTESTINAL: Abdomen morbidly obese, stented and tympanic. Hypoactive bowel sounds appreciated. MUSCULOSKELETAL: Trace nonpitting bilateral lower extremity edema. Positive tinea cruris NEURO: Cranial nerves II through XII grossly intact. Withdraws to pain in all 4 extremities.. Positive gag. Positive corneal reflex. Positive cough. Urinary Catheter: Yes Assessment to: Continue Elliott insert reason: Prolonged Immobilization Vascular Central Line Catheter: No Assessment to: Continue A/P Assessment and Plan Neuro/Psych: Agitated delirium History of depression History of peripheral neuropathy History of EtOH use Currently on propofol drip at 15 mcg/kg/min/midazolam drip at 10 mg an hour and/ fentanyl drips at 250 mcg an hour for sedation/analgesia while intubated Goal of RASS -2 Daily sedation vacation Continue divalproex 500mg PO BID,. Recheck valproic acid in a.m. was 26 01/18 Continue Citalopram 40 mg p.o. daily Check EEG with results pending 01/18 MRI brain no acute CVA/hemorrhage Thiamine, folate and multivitamin daily continue Pulm: Acute hypercapnic respiratory failure with chronic hypoxia COPD [facility] /11/13/44 Ventilator bundle Albuterol/ipratropium aerosols every 4 hours with albuterol aerosols every 2 hours as needed dyspnea Continue budesonide 0.5/2 1 inhalation twice daily Rofluilast 500 mcg po daily -can be a cause of pancreatitis Currently on methylprednisolone succinate 40 mg IV every 12 hours Chest x-ray in a.m. 01/21 CV: Sinus tachycardia Elevated triglycerides Monitor HR and BP and maintain MAP> 65 mmHg. Free water 200 cc every 4 hours Not requiring vasopressors and/or antihypertensives Renal//FEN/: HAMMAD Urinary retention Bilateral nephrolithiasis Bilateral renal masses -recommend MRI of kidneys with contrast when stable Hypernatremia Hypokalemia Baseline creatinine unknown. Holding furosemide 20 mg daily with acute kidney injury Insert and maintain Elliott. Monitor intake and output. CT abd/pelvis 01/11: No hydronephrosis GI Acute pancreatitis Cholelithiasis Constipation Gastroesophageal reflux disease Hypoalbuminemia Monitor LFTs( trending down), Lipase level is now within normal. Currently on famotidine 20 mg IV twice daily. Patient is on omeprazole 20 mg daily at home GI has followed. General surgery following for gallstone pancreatitis. For MRCP when stable from respiratory standpoint. General surgery following regarding timing of laparoscopic cholecystectomy Docusate sodium 100 mg twice daily, senna liquid 8.8 mg by tube twice daily, Add lactulose 30 cc 4 times daily and polythene glycol 17 g twice daily. Methylnaltrexone 12 mg subcu 1 now. Glycerin suppository. If no results subsystem tonight. CT abdomen/pelvis in a.m. ID: Candiduria On piperacillin/tazobactam for gallstone pancreatitis 01/11 #10 Follow up on Blood and urine x from 01/13- NGTD Strep pneumonia and Legionella urinary Ag negative urine cx 01/11: Leticia parapsilosis. Urine culture with persistent yeast 01/13 and patient with urinary symptoms so treated with fluconazole 200 po daily. 3 days. Switched to micafungin 100 milligrams IV daily by infectious disease 01/18 Consult infectious disease appreciated Endo: Diabetes mellitus Lows SSI with Aspart insulin Accu-Cheks q6 hours for glycemic control, Hold home medication metformin 500 mg p.o. daily MSK: Elevated BMI 45.7 Weight loss encouraged GI prophylaxis with famotidine and DVT prophylaxis with SCDs/Enoxaparin 40 mg daily. ACCESS: Port accessed L chest Level 3 Trey Patel MD Jan 20, 2018 14:31
--- NOTE | 2018-01-20 14:43 | PD.CONS ---
HPI History of Present Illness This is a 62 year old M who has been previously followed by our service for gallstone pancreatitis. Pt initially with transaminitis and elevated lipase, was to have MRCP to rule out choledocholithiasis. However, pt became unstable and was transferred to [facility]. Initially on BiPaP but now requiring 50% FiO2 mechanically ventilated via ETT. His LFTs are now WNL and lipase has returned to normal. No concern for further obstruction. GS has been following for cholecystectomy at appropriate time. Our service has been reconsulted to evaluate pt for abdominal distention. Only 1 BM has been documented since the . Per documentation pt reportedly having increased residuals with TF and therefor NG has now been placed to LIWS. Relistor ordered per CCM, not yet administered. KUB (01/18) --> There is mild gaseous distention of the large bowel. (Maryuri Garza) PFSH Past Medical History neuropathy COPD DM Past Surgical History left ankle surgery (Maryuri Garza) Coded Allergies: No Known Allergies (Verified Allergy, Unknown, 01/11/18) Family History heart problems - father Social History occasional ETOH quit smoking 8 y ago no illicit drugs (Maryuri Garza) Review of Systems Unable to obtain (Maryuri Gazra) GI Exam Vitals I&O Vital Signs Date Time Temp Pulse Resp B/P (MAP) Pulse Ox O2 Delivery O2 Flow Rate FiO2 01/20/18 09:18 94 50 01/20/18 06:00 95 01/20/18 04:00 99.6 103 24 133/99 (110) 93 01/20/18 04:00 103 01/20/18 04:00 50 01/20/18 03:02 94 50 01/20/18 02:00 102 01/20/18 00:00 105 01/20/18 00:00 100.3 105 18 134/87 (103) 95 01/20/18 00:00 50 01/19/18 23:39 96 50 01/19/18 22:00 106 01/19/18 21:03 94 50 01/19/18 20:00 100.2 104 18 149/89 (109) 94 01/19/18 20:00 50 01/19/18 20:00 104 01/19/18 18:00 99 01/19/18 18:00 98.7 99 23 155/81 (105) 93 01/19/18 18:00 98.7 01/19/18 17:09 93 50 01/19/18 16:00 50 01/19/18 16:00 100 I/O 01/19/18 01/19/18 01/19/18 01/20/18 01/20/18 01/20/18 07:00 15:00 23:00 07:00 15:00 23:00 Intake Total 1338 ml 415 ml 977 ml 1520 ml Output Total 950 ml 950 ml 675 ml Balance 388 ml 415 ml 27 ml 845 ml IV Total 673 ml 415 ml 650 ml 850 ml Tube Feeding 265 ml 327 ml 270 ml Tube Irrigant 400 ml 400 ml Output Urine Total 950 ml 950 ml 475 ml Gastric Drainage Total 200 ml # Bowel Movements 0 0 0 Imaging Last Impressions Chest X-Ray 01/20/18 0600 Signed Impressions: Service Date/Time: Saturday, January 20, 2018 03:54 - CONCLUSION: Limited study. Grossly unchanged basilar infiltrates. Fabián Flores Jr., MD Brain MRI 01/18/18 0000 Signed Impressions: Service Date/Time: Thursday, January 18, 2018 14:43 - CONCLUSION: 1. There is fluid filling the mastoid air cells. 2. No acute intracranial abnormality is identified. Darren Reardon MD Abdomen X-Ray 01/18/18 0000 Signed Impressions: Service Date/Time: Thursday, January 18, 2018 12:58 - CONCLUSION: There is mild gaseous distention of the large bowel. Reid Collier MD Abdomen/Pelvis CT 01/11/18 0305 Signed Impressions: Service Date/Time: Thursday, January 11, 2018 04:57 - CONCLUSION: 1. Abnormal pancreas diagnostic of acute pancreatitis. There is peripancreatic inflammation and a small volume of free fluid in the abdomen and pelvis. No pancreatic necrosis or pancreatitis associated complications are currently present. 2. Small stones are present within the gallbladder. There is no bile duct dilatation. 3. There are multiple bilateral renal lesions which are incompletely characterized on this study and could represent solid renal lesions or complex cysts. These should be further evaluation once the patient's condition permits. These ideally should be further evaluated with renal protocol MRI with and without intravenous contrast. 4. Nonacute findings include nonobstructing bilateral renal stones and moderate atherosclerotic disease. Mono Wesley MD Laboratory Test 01/19/18 16:29 01/20/18 07:06 Potassium Level 3.6 MEQ/L 3.8 MEQ/L White Blood Count 23.0 TH/MM3 Red Blood Count 4.98 MIL/MM3 Hemoglobin 13.4 GM/DL Hematocrit 43.1 % Mean Corpuscular Volume 86.6 FL Mean Corpuscular Hemoglobin 27.0 PG Mean Corpuscular Hemoglobin Concent 31.2 % Red Cell Distribution Width 17.5 % Platelet Count 220 TH/MM3 Mean Platelet Volume 9.4 FL Neutrophils (%) (Auto) 93.1 % Lymphocytes (%) (Auto) 1.9 % Monocytes (%) (Auto) 4.9 % Eosinophils (%) (Auto) 0.0 % Basophils (%) (Auto) 0.1 % Neutrophils # (Auto) 21.4 TH/MM3 Lymphocytes # (Auto) 0.4 TH/MM3 Monocytes # (Auto) 1.1 TH/MM3 Eosinophils # (Auto) 0.0 TH/MM3 Basophils # (Auto) 0.0 TH/MM3 CBC Comment DIFF FINAL Differential Comment Blood Urea Nitrogen 51 MG/DL Creatinine 1.98 MG/DL Random Glucose 291 MG/DL Total Protein 6.5 GM/DL Albumin 2.1 GM/DL Calcium Level 9.1 MG/DL Phosphorus Level 4.5 MG/DL Magnesium Level 2.3 MG/DL Alkaline Phosphatase 89 U/L Aspartate Amino Transf (AST/SGOT) 33 U/L Alanine Aminotransferase (ALT/SGPT) 61 U/L Total Bilirubin 0.5 MG/DL Sodium Level 147 MEQ/L Chloride Level 108 MEQ/L Carbon Dioxide Level 29.4 MEQ/L Anion Gap 10 MEQ/L Estimat Glomerular Filtration Rate 35 ML/MIN Amylase Level 319 U/L Lipase 169 U/L Date/Time Source Procedure Growth Status 01/18/18 19:57 Blood Peripheral Aerobic Blood Culture - Preliminary NO GROWTH IN 2 DAYS Resulted 01/18/18 19:57 Blood Peripheral Anaerobic Blood Culture - Preliminary NO GROWTH IN 2 DAYS Resulted 01/13/18 17:15 Urine Catheterized Urine Urine Culture - Final Leticia Parapsilosis Complete Physical Examination HEENT: Normocephalic; atraumatic CHEST: Synchronized with vent. Mechanically ventilated via ETT CARDIAC: Sinus tachycardia ABDOMEN: Distended, firm, bowel sounds faint SKIN: Normal. SLEEP TECH: Sedated (Maryuri Garza) Assessment and Plan Plan ASSESSMENT - epigastric pain, n/v, elevated LFTs- pancreatitis, could have had gallstone that passed. lipase > 20,000. LFTs are elevated in obstructive pattern but CT showed no ductal dilatation. - leukocytosis - WBC 20k 2/2 above (01/12) Pt was Halicat today for respiratory distress, now on BiPAP. Now in IMC. Reports of a-flutter on floor now S/P Cardizem bolus and he is now sinus tachycardia. Transaminitis- LFTs trending down. AST-178 ALT-236 T bili-3.8 Alk phos-86. Hepatitis panel pending. Pancreatitis- ? Secondary to gallstone. Lipase trending down -2740. Pt was unable to have MRCP done yet, due to respiratory issues and transfer, exam pending. ? ERCP depending on results, however, pt will need to be more stable for this. GS consult appreciated- they discussed possibility of cholecystectomy, this was prior to pts change in status. Leukocytosis- some improvement. Afebrile. On Zosyn. (01/13) --> Pt remains in IMC, on BiPAP, reports of nausea earlier. Pt complaining of abdominal distention, no BM since Thursday night. He states abdominal pain, can not localize it to one area. LFTs continue to improved. Hepatitis panel negative. MRCP still pending given respiratory status. Leukocytosis trending down. Fever documented last night at 101.2. Remains on Zosyn. (01/14) Pt with improved respiratory status today, switched to NC this morning and seems to be tolerating. Reports nausea, Zofran not lasting long enough. Also complaining of continued diffuse abdominal pain. KUB noted --> Limited study with normal bowel gas pattern. LFTs continue to improve. Drop in H/H noted, possibly dilutional, no obvious GIB. Leukocytosis, febrile this afternoon. MRCP pending. 01/18/18 intubated yesterday. LFTs improving, likely passed stone. Gs following, poss lap melba when stable (01/20) --> Reconsult for abdominal distention. KUB (01/18) Mild gaseous distention of large bowel. One BM documented since January 16. Relistor ordered per [facility], not yet administered. Abdomen distended and firm. Current bowel regimen: Sennoside, Docusate. MiraLax, Lactulose, Reglan Relistor ordered to be administered today Per notes, pt was having high residuals with TF, now to LIWS PLAN - NGT to LIWS - Rectal tube to gravity for decompression - CT abdomen/pelvis pending per CCM - Continue with current bowel regimen - Relistor - Possible need for decompressive colonoscopy if no improvement with above - Further recommendations to follow based on clinical course Pt has been seen and examined by myself and Dr. Mc and this note is written on his behalf (Maryuri Garza) Physician Comments Agree with above assessment and plan. Will follow up with you. (Ja Mc MD) Maryuri Garza Jan 20, 2018 14:43 Ja Mc MD Jan 21, 2018 10:08
[2018-01-20] MEDS ORDERED: CEFEPIME INJ 1,000 MG in SODIUM CHLORIDE 0.9% INJ 100 ML IV SCH (15:00)
[2018-01-20] MEDS ORDERED: EPINEPHrine HCL (1:10,000) 1 MG/10 ML SYRINGE ONE (15:08)
--- NOTE | 2018-01-20 15:30 | RADRPT ---
EXAM DATE/TIME: 01/20/2018 14:34 [place] COMPARISON: CHEST SINGLE AP, January 20, 2018, 3:54. INDICATIONS : Ileus. MEDICAL HISTORY : Gastroesophageal reflux disease. Diabetes. SURGICAL HISTORY : None. ENCOUNTER: Initial ACUITY: 1 week PAIN SCORE: Non-responsive. LOCATION: Bilateral abdomen. FINDINGS: The examination is very limited due to the patient's size. No dilated loops of bowel are seen. There is some gaseous distention of the colon. The portions of lung base visualized demonstrate small bilat eral effusions. CONCLUSION: 1. Very limited examination. 2. Gaseous distention of the colon. Darren Reardon MD on January 20, 2018 at 15:26 Board Certified Radiologist. This report was verified electronically.
[2018-01-20] MEDS ORDERED: PIPERACIL-TAZO 3.375 GM PREMIX 50 ML IV SCH (16:00)
--- NOTE | 2018-01-20 16:02 | PD.PROCEDR ---
Procedure Note Procedure Health CODE BLUE note 01/20/2018 [place] [facility]UE Time CPR started [address] Patel 152 Patient was on sedation vacation according to RN and following commands prior to events. Patient had high respiratory rates but was told to slow down by the nurses and the patient complied. Patient was undergoing KUB for evaluation of constipation. At 1453, initial cardiac rhythm was asystole. CPR was initiated. Patient was placed on Ambu bag. During code, patient received 9 mg epinephrine, 3 ampules of bicarbonate and 1 g of calcium chloride. Normal sinus related as a bolus. Patient was started norepinephrine drip at 12 mcg/min at 1508. Patient possibly had a return of spontaneous circulation at 1506 with a thready pulse for 15-20 seconds but unable to palpate via carotid so CPR resumed. During code, ET tube was exchanged Time pronounced 1523. Julia Serna and daughter Kristina were notified in person of the events preceding CODE BLUE event along with 30 minutes resuscitation efforts. Trey Patel MD Jan 20, 2018 16:02
[2018-01-20] MEDS ORDERED: metroNIDAZOLE 500 MG TAB PO SCH (18:00)
[2018-01-20] MEDS ORDERED: FREE WATER G-TUBE SCH (18:00)
== END 2018-01-20 15:23 | disposition expired | DRG 438 ==
LOC: NEPE 02:58 → NEDA 06:03 → NEDH 10:11 → N05A 14:53 → HIME 01-12 12:00
PROVIDERS: ADMIT Hospitalist; ATTEND Internal Medicine Critical Care Medicine
PROC: 5A09557 Assistance with Respiratory Ventilation, Greater than 96 Consecutive Hours, Continuous Positive Airway Pressure (ICD-10-PCS; 2018-01-12)
PROC: 0BH18EZ Insertion of Endotracheal Airway into Trachea, Via Natural or Artificial Opening Endoscopic (ICD-10-PCS; principal; 2018-01-17)
PROC: 5A1945Z Respiratory Ventilation, 24-96 Consecutive Hours (ICD-10-PCS; 2018-01-17)
PROC: 0B21XEZ Change Endotracheal Airway in Trachea, External Approach (ICD-10-PCS; 2018-01-20)
DX: K85.10 Biliary acute pancreatitis without necrosis or infection (principal); J96.02 Acute respiratory failure with hypercapnia; J96.01 Acute respiratory failure with hypoxia; N17.9 Acute kidney failure, unspecified; E87.0 Hyperosmolality and hypernatremia; R65.10 Systemic inflammatory response syndrome (SIRS) of non-infectious origin without acute organ dysfunction; J44.1 Chronic obstructive pulmonary disease with (acute) exacerbation; E87.2 Acidosis; E11.40 Type 2 diabetes mellitus with diabetic neuropathy, unspecified; E86.0 Dehydration; B37.49 Other urogenital candidiasis; Z68.42 Body mass index [BMI] 45.0-49.9, adult; K80.20 Calculus of gallbladder without cholecystitis without obstruction; N20.0 Calculus of kidney; E66.9 Obesity, unspecified; E87.6 Hypokalemia; K59.00 Constipation, unspecified; R33.9 Retention of urine, unspecified; E88.09 Other disorders of plasma-protein metabolism, not elsewhere classified; K21.9 Gastro-esophageal reflux disease without esophagitis; N28.9 Disorder of kidney and ureter, unspecified; R00.0 Tachycardia, unspecified; R45.1 Restlessness and agitation; Z71.3 Dietary counseling and surveillance; Z87.891 Personal history of nicotine dependence
CPT/HCPCS: 31500; 36600; 70551; 71045; 74018; 74177; 76937; 80053; 80061; 80074; 80164; 81001; 82140; 82150; 82550; 82805; 82948; 83605; 83690; 83735; 83880; 84100; 84132; 84484; 85007; 85025; 85027; 85610; 85730; 86403; 87040; 87077; 87086; 87106; 87186; 87449; 87641; 92950; 93005; 94002; 94003; 94640; 94664; 95819; 96361; 96374; 96375; J0171; J1170; J1200; J1630; J1650; J1940; J2212; J2248; J2250; J2270; J2405; J2543; J2765; J2920; J2930; J3010; J3480; J7030; J7050; J7626; Q9967